=== PATIENT | male | born 1935 | race Caucasian/White ===

== ENCOUNTER 2017-01-05 13:01 | Inpatient (IN) ==
[2017-01-05] MEDS ORDERED: SODIUM CHLORIDE 0.9% 500 ML IV STA (13:53)
[2017-01-05 13:59] LABS: Basophils # 0.2 10*3/uL (0.0-0.2); Basophils % 1.6 % (0.0-0.8); Eosinophils # 0.4 10*3/uL (0.0-0.87); Eosinophils % 3.2 % (0.00-10.9); Hematocrit 44.6 VOL% (42.0-52.0); Hemoglobin 14.5 GM/DL (14.0-18.0); Immature Granulocytes % 0.7 %; Immature Granulocytes Absolute 0.08 #; Lymphocytes # 2.7 10*3/uL (1.4-4.0); Mean Corpuscular HGB Conc 32.5 GM/DL (32-36); Mean Corpuscular Hemoglobin 29 PG (27-34); Mean Corpuscular Volume 89.7 FL (87-102); Mean Platelet Volume 11.1 FL (9.6-12.0); Monocytes # 1.2 10*3/uL (0.11-0.8); Monocytes % 11.3 % (1.7-12.7); Neutrophils # 6.4 10*3/uL (1.4-7.4); Neutrophils % 58.2 % (38.7-73.9); Platelet Count 217 T/CUMM (130-400); Red Blood Count 4.97 MC/CUMM (3.8-5.5); Red Cell Distribution Width 14.6 % (9.3-17.3); White Blood Count 10.9 T/CUMM (4-12)
[2017-01-05 14:11] LABS: Albumin 3.5 G/DL (3.4-5.0); Bilirubin,Total 0.6 MG/DL (0.2-1.0); Calcium 9.1 MG/DL (8.5-10.1); Magnesium 1.5 MG/DL (1.8-2.4); Potassium 4.6 MMOL/L (3.5-5.1); Total Protein 7.1 G/DL (6.4-8.3)
--- NOTE | 2017-01-05 14:15 | XRay Report ---
XR chest 1V portable Indication: Altered mental status. Chest one view: Comparison 03/19/2009. Right hemidiaphragm remains elevated. There is chronic interstitial prominence of the lungs diffusely with continued diffuse peribronchial thickening. Central interstitial scarring is stable as well. No focal infiltrates have developed. Borderline cardiomegaly and tortuous calcification of thoracic aorta are stable as well. Impression: Chronic airways disease such as bronchitis. Continued elevation right hemidiaphragm and persistent borderline cardiomegaly. PROCEDURE INTERPRETED AT [facility] DEPARTMENT OF RADIOLOGY Final Report Signed by: Glenn Pyaan M.D.
--- NOTE | 2017-01-05 14:36 | Emergency Department Note ---
Lonnie Crocker Brittany, am scribing for, and in the presence of, Saul Sifuentes MD 13:53. Maria Crocker Phillip K, MD, personally performed the services described in this documentation, ascribed by Trinity Fleming in my presence, and it is both accurate and complete . Arrival - Arrival Chief Complaint: Altered Mental Status Stated Complaint: was unconscous ED Nursing Triage Note: family states that the pt has been in 2 different for blacking out when your bp drops. pt is having trouble speaking in triage. pt is confused Mode of Arrival: Wheelchair Limitations: No Limitations Source: Patient, RN Notes Reviewed - History of Present Illness HPI Narrative: Patient is a 81 y/o white male presenting to the ED accompanied by family members for further evaluation of confusion and syncopal episodes. Family reports that patient has had four different syncopal episodes. With these episodes patient notably has a drop in blood pressure, confusion, stiffness of the body, unsteady gait, fixed gaze, and is unresponsive to verbal stimuli. Patient does not have any hypoglycemia with these episodes. Family reports that patient was seen and evaluated at [facility] over the weekend after onset of symptoms on . He was admitted and placed on the Telemetry unit. Patient notably had slightly elevated cardiac enzymes, had a CT Head and MRI performed during his stay. Family states that physician there wanted to perform a Cardiac Catheterization, but they declined the performance of this procedure secondary to patient's poor condition and didn't feel that it was the best option at the moment. While there patient was on child monitor and did not display one of these episodes or any changes on the monitor. Patient was seen by his Clicking Machine Operator Dr. Natarajan this morning for further evaluation of these episodes and was instructed to stop taking Norvasc and sent home with a Holter monitor. Family reports that upon their arrival home patient had another episode, prompting their visit. In room patient denies any SOB, chest pain, abdominal pain, N/V. He states that he feels fine as of now. Patient is confused, and oriented only to person. No other complaints. Allergies/Adverse Reactions: Allergies Allergy/AdvReac Type Severity Reaction Status Date / Time No Known Allergies Allergy Unverified 01/05/17 13:06 Review of System - Review of System 12 point system: reviewed and no additional remarkable complaints except as stated - Review of System Constitutional: Present: weakness Cardiovascular: Present: syncope. Absent: chest pain Gastrointestinal: Absent: abdominal pain Neurological: Present: confusion, abnormal gait Medical,Surgical,& Family Hx - Social History Smoking Status: Never smoker Frequency of Alcohol Use: None Type of Drug Use: None Exam Vital Signs: Vital Signs Temperature 96.5 F L 01/05/17 13:03 Pulse Rate 70 01/05/17 13:03 Respiratory Rate 18 01/05/17 14:19 Blood Pressure 94/43 01/05/17 13:03 O2 Sat by Pulse Oximetry 93 L 01/05/17 13:03 - General General appearance: alert, in no apparent distress - Head Head exam: Present: atraumatic, normocephalic, normal inspection - Eye Eye exam: Present: normal appearance, PERRL, EOMI - ENT ENT exam: Present: mucous membranes dry. Absent: mucous membranes moist - Neck Neck exam: Present: normal inspection, full ROM, trachea midline - Chest Chest inspection: Present: normal inspection, symmetric chest wall rise - Respiratory Respiratory exam: Present: rales (rales noted to the right base). Absent: normal lung sounds bilaterally - Cardiovascular Cardiovascular exam: Present: regular rate, normal rhythm, normal heart sounds - Abdominal Exam Abdominal exam: Present: soft, normal bowel sounds. Absent: tenderness - Extremities Exam Extremities exam: Present: normal inspection - Back Exam Back exam: Present: normal inspection - Neurological Exam Neurological exam: Present: alert, CN II-XII intact. Absent: oriented X3 ( oriented to person only), motor sensory deficit - Psychiatric Psychiatric exam: Present: normal affect, normal mood - Skin Skin exam: Present: warm, dry Results - Labs CBC & BMP: 01/05/17 13:37 01/05/17 13:37 Lab Results: I have reviewed the patients labs Labs: Laboratory Tests 01/05/17 01/05/17 13:37 13:37 WBC 10.9 RBC 4.97 Hgb 14.5 Hct 44.6 Plt Count 217 Baso % (Auto) 1.6 H Haines # (Auto) 1.2 H Sodium 136 Potassium 4.6 Chloride 101 Carbon Dioxide 27 BUN 25 H Creatinine 2.00 H Glucose 147 H Magnesium 1.5 L Globulin 3.6 H Albumin/Globulin Ratio 0.9 L Laboratory Tests 01/05/17 13:37 Sodium 136 Potassium 4.6 Chloride 101 Carbon Dioxide 27 BUN 25 H Creatinine 2.00 H Glucose 147 H Magnesium 1.5 L Globulin 3.6 H Albumin/Globulin Ratio 0.9 L - EKG EKG results: interpreted by DAMION, WNL, sinus rhythm - Diagnostic Findings Procedure: Chest x-ray: report reviewed by me (Bronchitis and borderline cardiomegaly) Disposition Clinical Impression: Hypotension, Rule out arrhythmia, Altered mental status, Near syncope, Probable orthostatic hypotension Case discussed with: patient, patient's family Disposition: Still a Patient Condition: Guarded Additional Instructions: Admit to the hospitalist.
[2017-01-05 14:49] LABS: Apearance,Urine Slightly Hazy (Clear); Bacteria,Urine Few /HPF (Few); Bilirubin,Urine Negative (Negative); Blood, Urine Negative (Negative); Glucose,Urine (UA) Negative (Negative); Ketones,Urine Negative (Negative); Mucus,Urine Occasional /LPF (Occasional); Nitrite,Urine Negative (Negative); Protein,Urine 30 MG/DL; RBC,Urine 3 /HPF (0-4); Squamous Epithelial Cell,Urine Occasional /HPF (0-10); Urine Color Yellow (Yellow); Urine Specific Gravity 1.012 (1.001-1.035); Urine Urobilinogen < 2.0 EU/DL (0.2-1.0); WBC,Urine 17 /HPF (0-6)
--- NOTE | 2017-01-05 15:21 | EKG Report ---
Stationary ECG Study [facility] ER Test Date: 01/05/2017 1:18:09 PM Pat Name: RAMYA WALLACE Department: Room: Gender: M Airline Security Representative: : 1935 Requested by: Saul Urena Order Number: [id number] Reading MD: SADI STOKES Intervals Louise Rate: 65 P: 56 GA: 177 QRS: 54 QRSD: 83 T: 39 QT: 441 QTc: 452 Interpretive Statements SINUS RHYTHM Electronically Signed On 01-05-17 15:52:05 CDT by SADI STOKES [email or web address]
--- NOTE | 2017-01-05 15:46 | Hospitalist History & Physical ---
<Fartun Jonas - Last Filed: 01/05/17 16:18> Assessment and Plan (1) Altered mental status Status: Acute Assessment and plan: Admit for observation. Cardiac monitoring. Cardiology consult. Obtain cbc/bmp in am. UA revealed uti. Blood cultures pending. CXR negative. Obtaining recent MRI/CT results from outside facility. Current Visit: Yes (2) Hypotension Status: Resolved Assessment and plan: Pt received bolus in ED. Hypotension has resolved. Will hold antihypertensive agents for now. Current Visit: Yes (3) Near syncope Status: Acute Assessment and plan: Consult cardiology to evaluate. Cardiac monitoring. Routine vitals. Current Visit: Yes (4) Diabetes Status: Acute Assessment and plan: Accuchecks achs. SSI. hbg A1c in am. Current Visit: Yes (5) Urinary tract infection Status: Acute Assessment and plan: Pt. will be started on IVF. IV antibiotics. Current Visit: Yes (6) History of CVA (cerebrovascular accident) Status: Chronic Current Visit: Yes History of Present Illness Chief complaint: syncopal episode History of present illness: Mr. Badillo is a 81 year old white male with a history of hypertension, CVA, diabetes, and carotid endarectomy the presents to the ED today for further evaluation of confusion and syncopal episode. Patient is accompanied by family member. Pt. is lethargic and oriented only to self. Granddaughter provides history for the patient. She states that this decline in patient's health has been ongoing for 1 week and 1 day. She states that the patient had a syncopal episode one night at home where he became unsteady, went stiff, and had a fixed gaze. She reports that they did not have the patient evaluated at the time but when the symtpoms persisted, they called an ambulance and patient was taken to [facility]. Pt. was admitted and placed on the telemetry unit there. He had elevated enzymes, Head CT and MRI. According to granddaughter, pt was told that he needed to have a heart cath but family refused due to patient's status. He was discharged from [place] on Wednesday. He did fair over the weekend but began to exhibit some of the same symptoms on Wednesday evening. Pt. was taken to Dr. Natarajan today for evaluation and was given a Holter monitor. Pt. was on the way home, device not yet activated, when a similiar episode occurred. Pt. was brought in for further evaluation. Pt. is altered. At the time of arrival, he was also hypotensive but received fluids in the ED. We will admit the patient for observation and treatment. Records will be obtained from [place]. Home Medications Medication Instructions Recorded Confirmed Type Gabapentin [Gabapentin] 300 mg PO BID 01/05/17 01/05/17 History Allergies Allergy/AdvReac Type Severity Reaction Status Date / Time No Known Allergies Allergy Unverified 01/05/17 13:06 Medical,Surgical,& Family Hx - Social History Smoking Status: Never smoker Frequency of Alcohol Use: None Type of Drug Use: None ROS unobtainable: due to mental status Exam - Constitutional Vitals: Period Temp Pulse Resp BP Sys/Zurita Pulse Ox Last 24 Hr 96.5 F 70 18-18 94/43 93 General appearance: no acute distress, over weight - Head Head exam: Present: normal inspection, normocephalic - Eye Eye exam: Present: EOMI Pupils: Present: INDU - Respiratory Respiratory exam: Present: other (coarse) - Cardiovascular Cardiovascular exam: Present: regular rate and rhythm - GI/Abdominal GI/Abdominal exam: Present: normal bowel sounds, soft. Absent: tenderness - Extremities Exam Extremities exam: Present: normal capillary refill, full ROM, edema - Neurological Exam Neurological exam: Present: altered. Absent: alert, oriented X3 - Psychiatric Psychiatric exam: Absent: normal affect - Skin Skin exam: Present: normal color, warm, dry Results - Labs CBC & BMP: 01/05/17 13:37 01/05/17 13:37 Lab Results: I have reviewed the past 24 hour labs <Dottie Badillo - Last Filed: 01/05/17 17:07> Assessment and Plan (1) Syncope and collapse Status: Acute Assessment and plan: Hypotension over at cardiology, Dr. Natarajan wants to hold his blood pressure meds including his lasix and flomax, maribel hose once right leg wound is covered. Event monitor on discharge. Neurology to see. NS at 75 ml/hr last ef 55% on echo. No further troponins or EKGs needed per dr Natarajan. Current Visit: Yes (2) Orthostatic hypotension Status: Acute Assessment and plan: hold blood pressure meds, and hydrate with normal saline Current Visit: Yes (3) Aortic stenosis, moderate Status: Acute Assessment and plan: per Dr Natarajan Current Visit: Yes (4) QUINCY (obstructive sleep apnea) Status: Acute Assessment and plan: Had sleep study many years ago and refused to wear cpap, daughter will ensure compliance. Dr Montiel to see him Current Visit: Yes (5) Altered mental status Status: Acute Assessment and plan: need records from [place], treat uti, stat abg Current Visit: Yes (6) Diabetes Status: Acute Current Visit: Yes (7) History of CVA (cerebrovascular accident) Status: Chronic Assessment and plan: continue home meds once available, Dr Lewis to review Current Visit: Yes (8) Urinary tract infection Status: Acute Assessment and plan: rocephin, await cultures. Current Visit: Yes History of Present Illness History of present illness: Mr. Badillo is a 81 year old male seen and examined. Spoke with Dr. Natarajan, he does not need a heart cath but he instructed the family to get some maribel hose, and stop his norvasc, lisinopril and flomax. He home medications have not been placed in computer. Dr. Natarajan reports he has moderate aortic stenosis and has had a recent echo. He will fax his note from today with his list of meds to the floor. Dr. Natarajan asked the family to stop his blood pressure meds and gets some maribel hose. Patient does have a right LE wound on his velez which does not look infected. Patient was at [facility] overnight and the family took him to Dr De La O office on discharge. Patient passed out again while in the car. We needs records from [place], Dr Natarajan place him on an event monitor but feels he does not need a heart cath. Medical,Surgical,& Family Hx - Medical History Cardio: History of: Hypertension, Valvular Heart Disease (aortic stenosis) Endocrine: History of: Diabetes Mellitus (NIDDM) - Surgical History Cardiac Surgeries: Sugical HX of: Carotid Endarterectomy HEENT Surgeries: Surgical HX of: Carotid Endarterectomy Additional Surgical History: femoral stent - Family History Family History: Reports;: Family Diabetes, Family Hypertension Denies;: Family Heart Disease - Social History Smoking Status: Former smoker Marital Status: Lives With:: Spouse Functional capacity: wheelchair bound Review of systems: provided by [facility] - Constitutional Constitutional: Present: fatigue, frequent falls, weakness. Absent: fever(s) - EENT Eyes: Present: requires corrective lense. Absent: blurry vision Ears: Present: decreased hearing Nose, mouth and throat: Absent: headache(s) - Cardiovascular Cardiovascular: Present: dyspnea, dyspnea on exertion, edema (occasional). Absent: chest pain at rest - Respiratory Respiratory: Present: dyspnea, dyspnea on exertion - Gastrointestinal Gastrointestinal: Absent: abdominal pain, constipation, nausea, vomiting - Genitourinary Genitourinary: Present: difficulty urinating, dysuria. Absent: hematuria - Musculoskeletal Musculoskeletal: Present: back pain - Neurological Neurological: Present: confusion, dizziness, frequent falls, syncope - Psychiatric Psychiatric: Present: depression, memory loss - Hematologic/Lymphatic Hematologic/Lymphatic: Present: easy bruising Exam - Constitutional Vitals: Period Temp Pulse Resp BP Sys/Zurita Pulse Ox Last 24 Hr 96.5 F 61-70 18-18 77-173/27-61 93 - Eye Eye exam: Absent: scleral icterus Pupils: Present: normal accommodation - ENT ENT exam: Present: normal exam, normal external ear exam - Neck Neck exam: Absent: lymphadenopathy, thyromegaly - Respiratory Respiratory exam: Present: decreased breath sounds - Cardiovascular Cardiovascular exam: Present: bradycardia. Absent: systolic murmur - Neurological Exam Neurological exam: Present: motor sensory deficit (generalized weakness ) - Psychiatric Psychiatric exam: Present: depressed, flat affect Results - Labs CBC & BMP: 01/05/17 13:37 01/05/17 13:37 - EKG EKG shows: sinus rhythm - Diagnostic Findings Procedure: Chest x-ray: report reviewed by me (chronic bronchitis )
[2017-01-05] MEDS ORDERED: DEXTROSE 50% 25 GM/50 ML SYRINGE IV PRN (16:39)
[2017-01-05] MEDS ORDERED: ONDANSETRON 4 MG/2 ML VIAL IV PRN (16:39)
[2017-01-05] MEDS ORDERED: GLUCAGON 1 MG VIAL IM PRN (16:39)
[2017-01-05] MEDS: INSULIN LISPRO 100 UNIT/ML SUBCUT SCH ×2 (17:37→21:00)
[2017-01-05 17:38] LABS: ABG Base Excess -1.7 MMOL/L (-2.5-2.5); ABG HCO3 23.3 MMOL/L (20-26); ABG Oxygen Saturation 97.6 % (95-100); ABG PCO2 40.6 MM HG (35-48); ABG PH 7.377 (7.35-7.45); ABG PO2 98.1 MM HG (80-95); ABG TCO2 24.6 MMOL/L (23-27)
[2017-01-05] MEDS ORDERED: ATORVASTATIN 20 MG TABLET PO PRN (18:08)
[2017-01-05] MEDS ORDERED: MAGNESIUM SULF RIDER 2 GM in PREMIX 1 EACH IV ONE (18:12)
[2017-01-05 18:36] LABS: Troponin I Only 0.075 NG/ML (0.00-0.045)
[2017-01-05] MEDS: SODIUM CHLORIDE 0.9% 1,000 ML IV SCH (19:29)
[2017-01-05] MEDS: cefTRIAXone 1,000 MG in SODIUM CHLORIDE 0.9% 100 ML IV SCH (19:29)
[2017-01-05] MEDS: GABAPENTIN 300 MG CAPSULE PO SCH (20:37)
[2017-01-05 23:53] LABS: CKMB % 5.2 %
[2017-01-05 23:57] LABS: Troponin I Only 0.061 NG/ML (0.00-0.045)
[2017-01-06 05:30] LABS: Basophils % 1.7 % (0.0-0.8); Hematocrit 42.1 VOL% (42.0-52.0); Hemoglobin 13.8 GM/DL (14.0-18.0); Immature Granulocytes % 0.3 %; Lymphocytes % 27.4 % (21.2-54.2); Mean Corpuscular HGB Conc 32.8 GM/DL (32-36); Mean Corpuscular Hemoglobin 29 PG (27-34); Mean Corpuscular Volume 89.6 FL (87-102); Mean Platelet Volume 10.9 FL (9.6-12.0); Monocytes % 11.9 % (1.7-12.7); Neutrophils % 53.7 % (38.7-73.9); Platelet Count 189 T/CUMM (130-400); Red Cell Distribution Width 14.5 % (9.3-17.3); White Blood Count 9.3 T/CUMM (4-12)
[2017-01-06 05:31] LABS: Basophils # 0.2 10*3/uL (0.0-0.2); Eosinophils # 0.5 10*3/uL (0.0-0.87); Immature Granulocytes Absolute 0.03 #; Lymphocytes # 2.5 10*3/uL (1.4-4.0); Monocytes # 1.1 10*3/uL (0.11-0.8)
[2017-01-06 06:28] LABS: Calcium 9.1 MG/DL (8.5-10.1); Magnesium 2.1 MG/DL (1.8-2.4); Osmolality,Calculated 278.7 MOS/KG (273-304); Potassium 4.7 MMOL/L (3.5-5.1); Risk Ratio 3.77; Thyroid Stimulating Hormone 1.92 uIU/ml (0.358-3.74); VLDL CHOLESTEROL 26.8 MG/DL
[2017-01-06] MEDS: LEVOTHYROXINE 75 MCG TABLET PO SCH (09:23)
[2017-01-06] MEDS: PANTOPRAZOLE 40 MG TABLET PO SCH (09:23)
[2017-01-06] MEDS: CITALOPRAM 20 MG TABLET PO SCH (09:23)
[2017-01-06] MEDS: ASPIRIN EC 81 MG TABLET PO SCH (09:24)
[2017-01-06] MEDS: INSULIN LISPRO 100 UNIT/ML SUBCUT SCH ×6 (09:26→21:00)
[2017-01-06] MEDS: POLYETHYLENE GLYCOL POWDER 17 GM PACK PO SCH (10:49)
[2017-01-06] MEDS: amLODIPine 5 MG TABLET PO SCH (12:34)
[2017-01-06] MEDS: LISINOPRIL 5 MG TABLET PO SCH (12:35)
--- NOTE | 2017-01-06 16:33 | Hospitalist Progress Note ---
Assessment and Plan (1) Acute kidney injury Status: Acute Assessment and plan: Creatinine on admission was 2.0. This is improved to 1.3 with IV fluids at 75 cc/h. Continue IV fluids. Monitor renal function. Continue treatment of urinary tract infection. Current Visit: Yes (2) Dehydration Status: Acute Current Visit: Yes (3) Altered mental status Status: Acute Assessment and plan: His mental status has returned to normal. Will consult neurology and obtain records from [place]. Cardiology following for evaluation of cardiogenic causes of syncope. Current Visit: Yes (4) History of CVA (cerebrovascular accident) Status: Chronic Current Visit: Yes (5) Syncope and collapse Status: Acute Current Visit: Yes (6) Aortic stenosis, moderate Status: Chronic Current Visit: Yes (7) Urinary tract infection Status: Acute Assessment and plan: Continue Rocephin. Follow-up cultures Current Visit: Yes Qualifiers: Urinary tract infection type: acute cystitis Hematuria presence: without hematuria Qualified Code(s): N30.00 - Acute cystitis without hematuria Hospitalist: Subjective Interval history: Patient seen and examined. No acute events overnight. Case discussed with nursing staff. Labs reviewed. I had a lengthy discussion with the patient's at the bedside. She reports frequent syncopal episodes at home. These are described as blank stares without shaking or loss of bowel or bladder function. She reports his eyes are open. He was admitted to [facility] last week and underwent evaluation by neurology and cardiology. They went to see Dr. Desai for second opinion. On the way home to the [facility] the patient suffered another syncopal episode prompting them to bring him back to the emergency department. She reports it took a while for him to wake up from this episode. He has large fluctuations in blood pressure and appeared to be acutely dehydrated with acute kidney injury which is now resolved with IV fluids. Exam - Constitutional Vitals: Period Temp Pulse Resp BP Sys/Zurita Pulse Ox Last 24 Hr 97 F-98.6 F 61-63 18-22 120-203/60-79 92-95 Exam: Constitutional System: No distress. No tremulousness. Head: Normocephalic, atraumatic. Ears, Nose and Throat System: No pain or tenderness. No epistaxis or discharge Eyes System: Pupils equal, round, and reactive. Extraocular muscles intact. Neck: Supple, without adenopathy, No jugular venous distention. No thyromegaly, neck mass, or prior surgery apparent. Respiratory System: Chest clear to auscultation. Cardiovascular System: Heart with regular rate and rhythm. Systolic murmur noted. GI System: Abdomen soft, nontender. Normo active bowel sounds present. Musculoskeletal System: limbs with no pedal edema. Full distal pulses. Neurological System: No discernable sensory deficit. No aphasia Psychiatric System: Conversation is rational Results - Labs CBC & BMP: 01/06/17 05:00 01/06/17 05:00 Lab Results: I have reviewed the past 24 hour labs - Diagnostic Findings Procedure: Chest x-ray: report reviewed by me, image reviewed by me
--- NOTE | 2017-01-06 17:15 | Neurology Consult Note ---
History of Present Illness History of present illness: 81 years old right-handed white gentleman who is quite debilitated at the baseline admitted the hospital with frequent episodes of decreasing level of consciousness. Symptoms started almost 10 days ago. He almost had 3 or 4 episodes. On almost all of the episodes he was either sitting up or up and about when this happened. Yesterday the episode was the longest one. Typical episodes characterized by developing decreased level of consciousness, mumbling disoriented and not to himself. Typically it was last for 5-10 minutes but yesterday it lasted for several hours. He went to the [facility] and had a detailed evaluation including MRI of the brain and EEG and although neurological workup was nonconclusive as per patient's family. Cardiac workup so far is negative as well. His episodes are not associated with tongue biting or urinary incontinence. None of the symptoms/episodes has been witnessed by any physician. This time patient was brought into [facility] for further evaluations. Family looking forward to get some answers. At [facility] they were told that this is probably orthostatic hypotension. Patient had a history of a stroke some 10 years ago. Her last 4-5 months he has gotten very debilitated and does not do much at home including walking. Home Medications Medication Instructions Recorded Confirmed Type Anastrozole [Anastrozole] 1 mg PO DIRECTED 01/05/17 01/05/17 History Aspirin [Ecotrin] 81 mg PO DAILY 01/05/17 01/05/17 History Atorvastatin [Lipitor] 20 mg PO DAILY PRN 01/05/17 01/05/17 History Carvedilol [Carvedilol] 3.25 mg PO BID 01/05/17 01/05/17 History Citalopram [CeleXA] 10 mg PO DAILY 01/05/17 01/05/17 History Furosemide [Furosemide] 20 mg PO DAILY 01/05/17 01/05/17 History Gabapentin 600 mg PO BEDTIME 01/05/17 01/05/17 History Gabapentin [Gabapentin] 300 mg PO BID 01/05/17 01/05/17 History Insulin Aspart [NovoLOG FlexPen] 12 units SUBCUT AC SUPPER 01/05/17 01/05/17 History Insulin Aspart [NovoLOG FlexPen] 14 units SUBCUT AC BREAKFAST 01/05/17 01/05/17 History Insulin Degludec [Tresiba 60 units SUBCUT AC BREAKFAST 01/05/17 01/05/17 History Flextouch U-200] Levothyroxine Sodium 75 mcg PO DAILY 01/05/17 01/05/17 History Lisinopril [Lisinopril] 5 mg PO DAILY 01/05/17 01/05/17 History Meclizine [Antivert] 25 mg PO TID 01/05/17 01/05/17 History Nitroglycerin [Nitroglycerin SL 0.4 mg SL DIRECTED 01/05/17 01/05/17 History Tab] Tamsulosin [Flomax] 0.4 mg PO DAILY 01/05/17 01/05/17 History amLODIPine [Norvasc] 5 mg PO DAILY 01/05/17 01/05/17 History Allergies Allergy/AdvReac Type Severity Reaction Status Date / Time No Known Allergies Allergy Unverified 01/05/17 13:06 12 point system: reviewed and no additional remarkable complaints except as stated Medical,Surgical,& Family Hx - Medical History Cardio: History of: Hypertension, Valvular Heart Disease (aortic stenosis) Neurology: History of: Cerebrovascular Accident Endocrine: History of: Diabetes Mellitus (IDDM), Diabetes Mellitus (NIDDM) - Surgical History Cardiac Surgeries: Sugical HX of: Carotid Endarterectomy Neurologic Surgeries: Patient denies: Neurologic Surgery HEENT Surgeries: Surgical HX of: Carotid Endarterectomy - Family History Family History: Reports;: Family Diabetes, Family Hypertension Denies;: Family Heart Disease - Social History Smoking Status: Former smoker Frequency of Alcohol Use: None Type of Drug Use: None Exam - Constitutional Vitals: Period Temp Pulse Resp BP Sys/Zurita Pulse Ox Last 24 Hr 97 F-98.6 F 61-63 18-22 120-203/60-79 92-95 Exam: GENERAL: Patient is in no acute distress. NECK: Neck is supple. There is no JVD. No carotid bruits present. No thyroid masses. CVS: First and second heart sounds are normal. There is no S3 present. Regular rate and rhythm. RESPIRATORY: Lungs are clear to auscultation without any rales or rhonchi. ABDOMEN: Soft and non-tender. Bowel sounds are present. There is no hepatosplenomegaly. EXT: There is no palpable edema. Peripheral pulses are present. Skin: No rashes Central Nervous system: General: Alert, awake and Oriented Speech: Fluent Comprehension: Intact and normal Facial expressions: Normal Cranial Nerves: CN1/Olfactory: Normal CN II/ Optic: Normal, Visual Ocampo unreliable CN III, and : INDU & EOMI CN V: Normal & intact CN VII: face is symmetric CNVIII: Normal CN XI/X/XI/XII: Intact and Normal Motor: Bulk and Tone is normal. Strength in the right 3-4/5 Strength in the left 3-4/5 Sensory: Unreliable Reflexes: 1+ and symmetrical Cerebellar function: Normal finger to nose and heel to velez testing. Toes: Equivocal Gait: Was able to get up with max assist and able to take a few steps to the chair with mod assist Results - Labs CBC & BMP: 01/06/17 05:00 01/06/17 05:00 Assessment and Plan (1) Syncope and collapse Status: Acute Assessment and plan: Etiology is not clear. None of the episodes has been witnessed by any physicians. Differential diagnosis would include orthostatic hypotension, cardiac arrhythmias or seizures. Plan is to do another EEG He probably will need ambulatory 72 hours video EEG monitoring at home for the clarification of these episodes. It would not hurt to try him on empiric 1 of the antiseizure medications to see if it helps with the episodes however family is reluctant to do so at this point due to medication side effects Thank you for the consult will follow him along with Current Visit: Yes
--- NOTE | 2017-01-06 18:06 | Sleep Medicine Consult ---
Assessment and Plan (1) QUINCY (obstructive sleep apnea) Status: Chronic Assessment and plan: Patient with history of QUINCY and remains symptomatic. Will reevaluate with HST tonight and follow up results. Thanks for consult. Current Visit: Yes (2) Diabetes Status: Chronic Assessment and plan: The prevalence rate for obstructive sleep apnea in patients with type 2 diabetes can be as high as 86%. Those patients with moderate to severe obstructive sleep apnea are at a greater risk for diabetic nephropathy and neuropathy. Compliance with CPAP therapy for these patients can lead to improvement in glycemic control and improvement in insulin sensitivity. Current Visit: Yes History of Present Illness Chief complaint: Sleep apnea History of present illness: Mr. Badillo is a 81 year old male admitted with recurrent syncope. He has had a decline in his health over the last week related to recurrent episodes of passing out. He has a remote history of obstructive sleep apnea diagnosed over 10 years ago but never followed up for treatment. Family member state that he refused treatment. He continues to snore loudly and stop breathing during his sleep. He basically sleeps all the time according to family. He is profoundly somnolent throughout the day. He had a stop bang score of 7 and an [place] sleepiness score of 17. Home Medications Medication Instructions Recorded Confirmed Type Anastrozole [Anastrozole] 1 mg PO DIRECTED 01/05/17 01/05/17 History Aspirin [Ecotrin] 81 mg PO DAILY 01/05/17 01/05/17 History Atorvastatin [Lipitor] 20 mg PO DAILY PRN 01/05/17 01/05/17 History Carvedilol [Carvedilol] 3.25 mg PO BID 01/05/17 01/05/17 History Citalopram [CeleXA] 10 mg PO DAILY 01/05/17 01/05/17 History Furosemide [Furosemide] 20 mg PO DAILY 01/05/17 01/05/17 History Gabapentin 600 mg PO BEDTIME 01/05/17 01/05/17 History Gabapentin [Gabapentin] 300 mg PO BID 01/05/17 01/05/17 History Insulin Aspart [NovoLOG FlexPen] 12 units SUBCUT AC SUPPER 01/05/17 01/05/17 History Insulin Aspart [NovoLOG FlexPen] 14 units SUBCUT AC BREAKFAST 01/05/17 01/05/17 History Insulin Degludec [Tresiba 60 units SUBCUT AC BREAKFAST 01/05/17 01/05/17 History Flextouch U-200] Levothyroxine Sodium 75 mcg PO DAILY 01/05/17 01/05/17 History Lisinopril [Lisinopril] 5 mg PO DAILY 01/05/17 01/05/17 History Meclizine [Antivert] 25 mg PO TID 01/05/17 01/05/17 History Nitroglycerin [Nitroglycerin SL 0.4 mg SL DIRECTED 01/05/17 01/05/17 History Tab] Tamsulosin [Flomax] 0.4 mg PO DAILY 01/05/17 01/05/17 History amLODIPine [Norvasc] 5 mg PO DAILY 01/05/17 01/05/17 History Allergies Allergy/AdvReac Type Severity Reaction Status Date / Time No Known Allergies Allergy Unverified 01/05/17 13:06 Review of systems: Other than for his severe sleepiness, no other significant abnormal sleep behaviors noted. Exam ([place]) H&P - Constitutional Vitals: Period Temp Pulse Resp BP Sys/Zurita Pulse Ox Last 24 Hr 97 F-98.6 F 61-74 18-22 120-203/60-79 91-95 Exam: He is alert and responsive. He did follow simple commands and cooperated with the exam. Pupils equal round reactive to light and accommodation. Extraocular movements intact. Oropharynx with a class IV Mallampati exam. Neck supple without adenopathy or thyromegaly. No supraclavicular adenopathy is noted. Chest with symmetrical breath sounds without focal wheeze, rhonchi, or rales. Cardiac exam reveals a regular rhythm without murmur or gallop. Abdomen soft nontender without palpable hepatosplenomegaly or mass. Extremities are without clubbing, cyanosis, or edema. Neurologically, he is grossly intact. He moves all extremities. Medical,Surgical,& Family Hx - Medical History Cardio: History of: Hypertension, Valvular Heart Disease (aortic stenosis) Neurology: History of: Cerebrovascular Accident Endocrine: History of: Diabetes Mellitus (IDDM), Diabetes Mellitus (NIDDM) - Surgical History Cardiac Surgeries: Sugical HX of: Carotid Endarterectomy Neurologic Surgeries: Patient denies: Neurologic Surgery HEENT Surgeries: Surgical HX of: Carotid Endarterectomy - Family History Family History: Reports;: Family Diabetes, Family Hypertension Denies;: Family Heart Disease - Social History Smoking Status: Former smoker Frequency of Alcohol Use: None Type of Drug Use: None Results - Labs CBC & BMP: 01/06/17 05:00 01/06/17 05:00 Lab Results: I have reviewed the past 24 hour labs
[2017-01-06] MEDS: cefTRIAXone 1,000 MG in SODIUM CHLORIDE 0.9% 100 ML IV SCH (19:00)
[2017-01-06] MEDS: ACETAMINOPHEN 325 MG TABLET PO PRN (19:45)
--- NOTE | 2017-01-06 20:39 | Cardiology Consult Note ---
Alvin Crocker Vanessa, RN, am scribing for, and in the presence of, Froilan Anthony MD 20:38. Assessment and Plan - Time spent with patient Time spent with patient: Greater than 30 minutes (Due to assessment, planning, documentation, medication review) (1) Near syncope Status: Acute Assessment and plan: 81-year-old WM with past medical history of hypertension, diabetes, dyslipidemia , CAD with previous stenting, untreated QUINCY, CVA, and possible history of PAF. He also had moderate , preserved LV function, and has been experiencing near syncopal episode with orthostatic symptoms a little over 1 week now. Essentially, he is nonambulatory and spends majority of time lying in bed. December ASSESSMENT/PLAN: 1. NEAR SYNCOPE- No further near syncope since admission. Cardiac monitoring and has been nonrevealing. Recent CT/MRI head at [facility] - records are being obtained. Place event monitor (family to bring from home) prior to discharge. 2. ORTHOSTASIS- Could certainly contribute to patient's symptoms. Medications adjusted and discontinued during office visit with Dr. Celestin yesterday. Monitor orthostatic VS. Adjust medications accordingly. 3. HYPERTENSION- Chronic; Monitor BP and adjust med regimen as indicated. He was actually hypotensive upon presentation to the ER and required IVF bolus. 4. HYPOTHYROID- TSH 1.920 this admit. Thyroid supplement continued. 5. AORTIC STENOSIS- Known history of and remains moderate per recent echo. Could possibly be contributing to orthostatic symptoms and near syncope. 6. HISTORY OF CAD- Appears stable at this time. previous stenting of RCA in 2006. He currently takes low dose ASA. 7. PAF- Review of old records indicate possibly history of PAF but unclear. Family denies any knowledge of atrial fibrillation. He is not formally anticoagulated for stroke prevention. 8. QUINCY- Untreated. Diagnosed years ago, but was intolerant of CPAP. Family request patient to be reevaluated and treated. Sleep disorder could contribute to patient's symptoms. Sleep medicine has been consulted to review. 9. DYSLIPDIEMIA- FLP this morning overall unremarkable. Noted to have statin intolerance in the past, but home med list indicates he is prescribed atorvastatin. 10. DIABETES- Continue current plan of care. Defer primary management to attending. No significant hypo/hyperglycemia associated with episodes of syncope. 11. UTI- Started on IV antibiotic by hospital medicine. Urine culture pending. 12. PVD- Appears stable at this time. He has had previous stenting of BLEs in the past in [place], [place]. Continue BLE TEDs. His spells of loss of consciousness sound more like a seizure and syncope. However it could be bradycardia, tachycardia, orthostatic hypotension, vasovagal , psychogenic, conversion reaction, or some other cause Plan/recommendation: He has had an echo done within the last 6 months which was okay Carotid ultrasounds done in 09/[address] of the head negative Agree with repeat EEG Agree with HST-likely has sleep apnea Check orthostatic blood pressures Monitor if he has a spell-glucose, blood pressure, rhythm, pulse If he has no more spells could let him go home and reuse a 30 day event monitor which she has to try to document rhythm during symptoms We have held multiple medications which could cause orthostatic hypotension, allowing his blood pressure to run higher baseline I will follow along with you. Thank you for allowing me to participate in this patient's care Current Visit: Yes (2) Altered mental status Status: Acute Assessment and plan: SEE PLAN OF CARE LISTED ABOVE. Current Visit: Yes (3) Urinary tract infection Status: Acute Assessment and plan: SEE PLAN OF CARE LISTED ABOVE. Current Visit: Yes Qualifiers: Urinary tract infection type: acute cystitis Hematuria presence: without hematuria Qualified Code(s): N30.00 - Acute cystitis without hematuria (4) Aortic stenosis, moderate Status: Chronic Assessment and plan: SEE PLAN OF CARE LISTED ABOVE. Current Visit: Yes (5) Diabetes Status: Chronic Assessment and plan: SEE PLAN OF CARE LISTED ABOVE. Current Visit: Yes (6) QUINCY (obstructive sleep apnea) Status: Chronic Assessment and plan: SEE PLAN OF CARE LISTED ABOVE. Current Visit: Yes (7) History of CVA (cerebrovascular accident) Status: Chronic Assessment and plan: SEE PLAN OF CARE LISTED ABOVE. Current Visit: Yes (8) Hypothyroidism Status: Chronic Assessment and plan: SEE PLAN OF CARE LISTED ABOVE. Current Visit: Yes History of Present Illness - Data of Consult Patient: known to practice within the last 3 years Consult date: 01/06/17 Requesting Physician: Dottie Badillo - Consult Narrative Reason for consult: syncope, orthostasis History of present illness: LEAD PERFORMANCE SUPPORT ANALYST: DR. CELESTIN Mr. Badillo is a 81 year old white male with risk factors significant for: hypertension, diabetes, dyslipidemia, sedentary lifestyle, obesity, previous history of CAD, and he is a former smoker. Past medical history includes QUINCY ( untreated), CVA, chronic renal insufficiency, PVD, and hypothyroidism. He also has a reported history of paroxysmal atrial fibrillation. Status post PTCA and stent 2 of the mid RCA per Dr. Lassiter in January 2007. He has had previous bilateral stenting of lower extremities in [place]. Surgical history also significant for bilateral CEAs. Patient also has a history of moderate aortic stenosis, and recent echo ([facility], Dr. Clarke) on December 31 with normal LV systolic function, EF 55-60%. Mr. Badillo has had multiple episodes of syncope in the past week or so, and he has been hospitalized for observation twice, once at [facility] and once at [facility]. Syncopal episodes are described as patient becoming lethargic, confused and mumbling, stiffened body posture, and fixed gaze. Family denies patient having loss of consciousness. Cardiac biomarkers and EKG were benign for acute finding. While admitted at [facility], it was suggested to patient and his family by Dr. Clarke that patient undergo cardiac catheterization for evaluation. Mr. Badillo is essentially nonambulatory and spends the majority of his day in bed, lying supine. Due to patient's medical history and frail state, cardiac cath was declined by the family at that time. He has been found to have significant orthostasis recently, and family reports that home health nurses have told them his systolic BP has been as low as the 60s. After discharge from [facility] , patient's family sought further evaluation and patient seen by Dr. Celestin in clinic yesterday. After evaluation, patient's amlodipine, carvedilol, and Lasix was held. Lisinopril dosage increased to 10 mg PO daily. Patient is also prescribed meclizine and Flomax, and could also most certainly be contributing to orthostasis. Recommended he wear knee high TEDs, monitor BP, sports drink daily, and he was sent home with a 30 day event monitor to observe for potential arrhythmia as source of symptoms. He is now admitted to [facility] after presenting to the ER for recurrent syncope yesterday afternoon. He was hypotensive in ER, BP 77/27. Improved with 500 ml IVF bolus. Creatinine also elevated at 2.0. Diagnostic workup notable for moderate UTI and treatment has been started. Cardiology consulted for further evaluation and review. Neurology consult pending also. Mr. Badillo is awake and pleasant this morning. No acute distress. No chest pain, shortness of breath. Serial cardiac biomarkers benign with CTNI peaking at 0.075 and normal CPK. EKG and cardiac monitoring demonstrate sinus rhythm, HR 60s, no ectopy or dysrhythmia. Family member present at bedside with patient this morning reports that after they left appointment with Dr. Celestin yesterday , patient was feeling well and wanted to go to [employer] for lunch. After lunch, they proceeded to head home toward [place]. While traveling home, patient was noted to be reaching for the gearshift and began to mumble about "putting money in offering plate." He then became lethargic with a fixed gaze. Family reports they had not yet activated event monitor, and continued homeward. After mental status remained altered for approximately 15-20 minutes, family became concerned at the length of episode. Event monitor was taken inside the house, and patient was immediately brought to [facility] ED. Patient has not had further episode since admission according to family member's report. Glucose levels stable. Family reports they have checked patient's blood glucose several times with previous episodes, and glucose has "never been too high or low." He is hypertensive at times this morning with SBP up to 170. Being cautiously hydrated with IVF infusion, creatinine improved to 1.3 this morning. Family member is going to try and have patient's granddaughter bring event monitor from home to hospital so this can be placed and activated prior to discharge home. CC: Umm Varghese MD - Home Medications and Allergies Home Medications: Home Medications Medication Instructions Recorded Confirmed Type Anastrozole [Anastrozole] 1 mg PO DIRECTED 01/05/17 01/05/17 History Aspirin [Ecotrin] 81 mg PO DAILY 01/05/17 01/05/17 History Atorvastatin [Lipitor] 20 mg PO DAILY PRN 01/05/17 01/05/17 History Carvedilol [Carvedilol] 3.25 mg PO BID 01/05/17 01/05/17 History Citalopram [CeleXA] 10 mg PO DAILY 01/05/17 01/05/17 History Furosemide [Furosemide] 20 mg PO DAILY 01/05/17 01/05/17 History Gabapentin 600 mg PO BEDTIME 01/05/17 01/05/17 History Gabapentin [Gabapentin] 300 mg PO BID 01/05/17 01/05/17 History Insulin Aspart [NovoLOG FlexPen] 12 units SUBCUT AC SUPPER 01/05/17 01/05/17 History Insulin Aspart [NovoLOG FlexPen] 14 units SUBCUT AC BREAKFAST 01/05/17 01/05/17 History Insulin Degludec [Tresiba 60 units SUBCUT AC BREAKFAST 01/05/17 01/05/17 History Flextouch U-200] Levothyroxine Sodium 75 mcg PO DAILY 01/05/17 01/05/17 History Lisinopril [Lisinopril] 5 mg PO DAILY 01/05/17 01/05/17 History Meclizine [Antivert] 25 mg PO TID 01/05/17 01/05/17 History Nitroglycerin [Nitroglycerin SL 0.4 mg SL DIRECTED 01/05/17 01/05/17 History Tab] Tamsulosin [Flomax] 0.4 mg PO DAILY 01/05/17 01/05/17 History amLODIPine [Norvasc] 5 mg PO DAILY 01/05/17 01/05/17 History Allergies/Adverse Reactions: Allergies Allergy/AdvReac Type Severity Reaction Status Date / Time No Known Allergies Allergy Unverified 01/05/17 13:06 ROS unobtainable: due to mental status - Constitutional Constitutional: Present: as per HPI - EENT Eyes: Present: as per HPI Nose, mouth and throat: Present: as per HPI - Cardiovascular Cardiovascular: Present: as per HPI - Respiratory Respiratory: Present: as per HPI - Gastrointestinal Gastrointestinal: Present: as per HPI - Genitourinary Genitourinary: Present: as per HPI - Musculoskeletal Musculoskeletal: Present: as per HPI - Neurological Neurological: Present: as per HPI - Psychiatric Psychiatric: Present: as per HPI - Endocrine Endocrine: Present: as per HPI - Hematologic/Lymphatic Hematologic/Lymphatic: Present: as per HPI Medical,Surgical,& Family Hx - Medical History Cardio: History of: CAD, Hypertension, PVD, Valvular Heart Disease (aortic stenosis) No history of: [place], Pacemaker Neurology: History of: Cerebrovascular Accident, Peripheral Neuropathy No history of: Seizures, TIA Endocrine: History of: Diabetes Mellitus (IDDM), Diabetes Mellitus (NIDDM), Dyslipidemia, Thyroid Disorder Respiratory: History of: Obstructive Sleep Apnea No history of: Pulmonary Hypertension (Untreated) Renal: History of: Renal Problems (Chronic renal insufficiency) Genitourinary: History of: Prostate Problems Gastrointestinal: History of: GERD No history of: Gastrointestinal Bleed Musculoskeletal: History of: Musculoskeletal Problems (Osteoarthritis) Other: No history of: Cancer - Surgical History Cardiac Surgeries: Sugical HX of: Cardiac Catheterization (Mid RCA stent 2 in 2006), Carotid Endarterectomy (Bilateral) Neurologic Surgeries: Patient denies: Neurologic Surgery HEENT Surgeries: Surgical HX of: Carotid Endarterectomy Orthopedic Surgeries: Patient denies;: Implanted Devices - Family History Family History: Reports;: Family Diabetes, Family Hypertension Denies;: Family Heart Disease - Social History Smoking Status: Former smoker Frequency of Alcohol Use: None Type of Drug Use: None Physical Examination Vital Signs Temp Pulse Resp BP Pulse Ox 96.5 F L 70 18 94/43 93 L 01/05/17 13:03 01/05/17 13:03 01/05/17 13:03 01/05/17 13:03 01/05/17 13:03 General: Present: No Apparent Distress, Other (frail; obese) HEENT: Present: PERRL, Normocephaly. Absent: Pallor Neck: Present: Midline Trachea, No JVD/HJR, No Masses, No Bruit Cardiac: Present: Reg Rate and Rhythm, Systolic Murmur Lungs: Present: Bibasilar Rales (faint), No Wheezes, No Rhonchi. Absent: Oxygen Neuro: Present: Grossly Intact. Absent: Numbness, Weakness, Resting Tremor, Essential Tremor Abdomen: Present: Soft, Active Bowel Sounds, No Masses. Absent: Ascites, Tender , Firm, Distended Skin: Present: Other (warm, dry). Absent: Rash, Suspicious Lesions, Bruising Musculoskeletal: Present: Decreased Range of Motion Extremities: Present: No Edema, Normal Upper Extr. Pulses (3+ bilaterally), Normal Lower Extr. Pulses (1-2+ bilaterally), Capillary Refill (normal) Result/EKG - Labs CBC & BMP: 01/06/17 05:00 01/06/17 05:00 Lab Results: I have reviewed the past 24 hour labs Labs: Laboratory Results - last 24 hr 01/05/17 01/05/17 01/05/17 13:37 13:37 14:30 WBC 10.9 RBC 4.97 Hgb 14.5 Hct 44.6 MCV 89.7 MCH 29 MCHC 32.5 RDW 14.6 Plt Count 217 MPV 11.1 Neut % (Auto) 58.2 Lymph % (Auto) 25.0 [place] % (Auto) 11.3 Eos % (Auto) 3.2 Baso % (Auto) 1.6 H Neut # (Auto) 6.4 Lymph # (Auto) 2.7 [place] # (Auto) 1.2 H Eos # (Auto) 0.4 Baso # (Auto) 0.2 Immature Gran % 0.7 Nucleated RBC % 0.0 Immature Gran # 0.08 Nucleated RBCs # 0.00 Immature Plt Fraction 0.0 ABG pH ABG pCO2 ABG pO2 ABG HCO3 ABG Total CO2 ABG O2 Saturation ABG Base Excess Sodium 136 Potassium 4.6 Chloride 101 Carbon Dioxide 27 Anion Gap 12.6 BUN 25 H Creatinine 2.00 H GFR Calculation 37 BUN/Creatinine Ratio 12.00 Glucose 147 H POC Glucose Hemoglobin A1c Calculated Osmolality 278.0 Calcium 9.1 Magnesium 1.5 L Total Bilirubin 0.60 AST 30 ALT 28 Alkaline Phosphatase 62 Ammonia Total Creatine Kinase CK-MB (CK-2) CK and CKMB Interp Troponin I Total Protein 7.1 Albumin 3.5 Globulin 3.6 H Albumin/Globulin Ratio 0.9 L Triglycerides Cholesterol LDL Cholesterol VLDL Cholesterol HDL Cholesterol Heart Disease Risk Ratio Free T4 TSH 3rd Generation Urine Color Yellow Urine Appearance Slightly hazy Urine pH 5.0 Ur Specific Alexis 1.012 Urine Protein 30 Urine Glucose (UA) Negative Urine Ketones Negative Urine Blood Negative Urine Nitrate Negative Urine Bilirubin Negative Urine Urobilinogen < 2.0 H Urine Leukocytes Moderate H Urine RBC 3 Urine WBC 17 Ur Squamous Epith Cells Occasional Urine Bacteria Few Urine Mucus Occasional Ur Culture Indicated? Results to follow 01/05/17 01/05/17 01/05/17 17:38 17:41 19:58 WBC RBC Hgb Hct MCV MCH MCHC RDW Plt Count MPV Neut % (Auto) Lymph % (Auto) [place] % (Auto) Eos % (Auto) Baso % (Auto) Neut # (Auto) Lymph # (Auto) [place] # (Auto) Eos # (Auto) Baso # (Auto) Immature Gran % Nucleated RBC % Immature Gran # Nucleated RBCs # Immature Plt Fraction ABG pH 7.377 ABG pCO2 40.6 ABG pO2 98.1 H ABG HCO3 23.3 ABG Total CO2 24.6 ABG O2 Saturation 97.6 ABG Base Excess -1.7 Sodium Potassium Chloride Carbon Dioxide Anion Gap BUN Creatinine GFR Calculation BUN/Creatinine Ratio Glucose POC Glucose 142 H Hemoglobin A1c Calculated Osmolality Calcium Magnesium Total Bilirubin AST ALT Alkaline Phosphatase Ammonia 31 Total Creatine Kinase 155 CK-MB (CK-2) 7.8 H CK and CKMB Interp 5.0 Troponin I 0.075 H Total Protein Albumin Globulin Albumin/Globulin Ratio Triglycerides Cholesterol LDL Cholesterol VLDL Cholesterol HDL Cholesterol Heart Disease Risk Ratio Free T4 TSH 3rd Generation Urine Color Urine Appearance Urine pH Ur Specific Alexis Urine Protein Urine Glucose (UA) Urine Ketones Urine Blood Urine Nitrate Urine Bilirubin Urine Urobilinogen Urine Leukocytes Urine RBC Urine WBC Ur Squamous Epith Cells Urine Bacteria Urine Mucus Ur Culture Indicated? 01/05/17 01/06/17 01/06/17 22:38 05:00 05:00 WBC 9.3 RBC 4.70 Hgb 13.8 L Hct 42.1 MCV 89.6 MCH 29 MCHC 32.8 RDW 14.5 Plt Count 189 MPV 10.9 Neut % (Auto) 53.7 Lymph % (Auto) 27.4 [place] % (Auto) 11.9 Eos % (Auto) 5.0 Baso % (Auto) 1.7 H Neut # (Auto) 5.0 Lymph # (Auto) 2.5 [place] # (Auto) 1.1 H Eos # (Auto) 0.5 Baso # (Auto) 0.2 Immature Gran % 0.3 Nucleated RBC % 0.0 Immature Gran # 0.03 Nucleated RBCs # 0.00 Immature Plt Fraction 0.0 ABG pH ABG pCO2 ABG pO2 ABG HCO3 ABG Total CO2 ABG O2 Saturation ABG Base Excess Sodium 138 Potassium 4.7 Chloride 103 Carbon Dioxide 26 Anion Gap 13.7 BUN 22 H Creatinine 1.30 GFR Calculation 63 BUN/Creatinine Ratio 16.00 Glucose 113 H POC Glucose Hemoglobin A1c Calculated Osmolality 278.7 Calcium 9.1 Magnesium 2.1 Total Bilirubin AST ALT Alkaline Phosphatase Ammonia Total Creatine Kinase 132 CK-MB (CK-2) 6.9 H CK and CKMB Interp 5.2 Troponin I 0.061 H Total Protein Albumin Globulin Albumin/Globulin Ratio Triglycerides 134 Cholesterol 117 LDL Cholesterol 62.0 VLDL Cholesterol 26.8 HDL Cholesterol 31 L Heart Disease Risk Ratio 3.77 Free T4 TSH 3rd Generation 1.920 Urine Color Urine Appearance Urine pH Ur Specific Alexis Urine Protein Urine Glucose (UA) Urine Ketones Urine Blood Urine Nitrate Urine Bilirubin Urine Urobilinogen Urine Leukocytes Urine RBC Urine WBC Ur Squamous Epith Cells Urine Bacteria Urine Mucus Ur Culture Indicated? 01/06/17 01/06/17 01/06/17 05:00 05:00 07:27 WBC RBC Hgb Hct MCV MCH MCHC RDW Plt Count MPV Neut % (Auto) Lymph % (Auto) [place] % (Auto) Eos % (Auto) Baso % (Auto) Neut # (Auto) Lymph # (Auto) [place] # (Auto) Eos # (Auto) Baso # (Auto) Immature Gran % Nucleated RBC % Immature Gran # Nucleated RBCs # Immature Plt Fraction ABG pH ABG pCO2 ABG pO2 ABG HCO3 ABG Total CO2 ABG O2 Saturation ABG Base Excess Sodium Potassium Chloride Carbon Dioxide Anion Gap BUN Creatinine GFR Calculation BUN/Creatinine Ratio Glucose POC Glucose 153 H Hemoglobin A1c 7.1 H Calculated Osmolality Calcium Magnesium Total Bilirubin AST ALT Alkaline Phosphatase Ammonia Total Creatine Kinase CK-MB (CK-2) CK and CKMB Interp Troponin I Total Protein Albumin Globulin Albumin/Globulin Ratio Triglycerides Cholesterol LDL Cholesterol VLDL Cholesterol HDL Cholesterol Heart Disease Risk Ratio Free T4 0.82 TSH 3rd Generation Urine Color Urine Appearance Urine pH Ur Specific Alexis Urine Protein Urine Glucose (UA) Urine Ketones Urine Blood Urine Nitrate Urine Bilirubin Urine Urobilinogen Urine Leukocytes Urine RBC Urine WBC Ur Squamous Epith Cells Urine Bacteria Urine Mucus Ur Culture Indicated? - Diagnostic Findings Procedure: Chest x-ray: image reviewed by me, report reviewed by me - EKG EKG results: interpreted by me, no acute changes EKG shows: sinus rhythm IRaj Dale, MD, personally performed the services described in this documentation, ascribed by Ruthie Esquivel RN in my presence, and it is both accurate and complete .
[2017-01-06] MEDS: GABAPENTIN 300 MG CAPSULE PO SCH (21:05)
[2017-01-07 05:22] LABS: Basophils # 0.2 10*3/uL (0.0-0.2); Basophils % 1.6 % (0.0-0.8); Eosinophils # 0.4 10*3/uL (0.0-0.87); Eosinophils % 4.8 % (0.00-10.9); Hematocrit 43.7 VOL% (42.0-52.0); Hemoglobin 14.1 GM/DL (14.0-18.0); Immature Granulocytes % 0.9 %; Immature Granulocytes Absolute 0.08 #; Lymphocytes # 3.2 10*3/uL (1.4-4.0); Lymphocytes % 34.4 % (21.2-54.2); Mean Corpuscular HGB Conc 32.3 GM/DL (32-36); Mean Corpuscular Hemoglobin 29 PG (27-34); Mean Corpuscular Volume 90.1 FL (87-102); Monocytes # 0.9 10*3/uL (0.11-0.8); Monocytes % 10.2 % (1.7-12.7); Neutrophils # 4.4 10*3/uL (1.4-7.4); Neutrophils % 48.1 % (38.7-73.9); Platelet Count 192 T/CUMM (130-400); Red Blood Count 4.85 MC/CUMM (3.8-5.5); Red Cell Distribution Width 14.6 % (9.3-17.3); White Blood Count 9.2 T/CUMM (4-12)
[2017-01-07] MEDS: SODIUM CHLORIDE 0.9% 1,000 ML IV SCH ×3 (05:30→13:56)
[2017-01-07 05:50] LABS: Calcium 9.1 MG/DL (8.5-10.1); Osmolality,Calculated 278.7 MOS/KG (273-304); Potassium 4.7 MMOL/L (3.5-5.1)
[2017-01-07] MEDS: INSULIN LISPRO 100 UNIT/ML SUBCUT SCH ×6 (09:20→23:46)
[2017-01-07] MEDS: LISINOPRIL 5 MG TABLET PO SCH (09:56)
[2017-01-07] MEDS: ASPIRIN EC 81 MG TABLET PO SCH (09:56)
[2017-01-07] MEDS: CITALOPRAM 20 MG TABLET PO SCH (09:56)
[2017-01-07] MEDS: LEVOTHYROXINE 75 MCG TABLET PO SCH (09:56)
[2017-01-07] MEDS: PANTOPRAZOLE 40 MG TABLET PO SCH (09:57)
[2017-01-07] MEDS: amLODIPine 5 MG TABLET PO SCH (09:57)
[2017-01-07] MEDS: POLYETHYLENE GLYCOL POWDER 17 GM PACK PO SCH (09:57)
--- NOTE | 2017-01-07 12:35 | Sleep Medicine Progress Note ---
Assessment and Plan (1) QUINCY (obstructive sleep apnea) Status: Chronic Assessment and plan: Patient still has significant QUINCY by HST. We will initiate auto titration CPAP tonight. Current Visit: Yes (2) Diabetes Status: Chronic Current Visit: Yes Sleep Medicine Subjective Interval history: Patient did have HST done last night and this reveals severe obstructive sleep apnea with a event index of over 40 with significant O2 desaturation. I reviewed his findings with the patient and his family. We will start him on auto titration CPAP tonight and follow up his response. Exam (Progress Note) - Constitutional Vitals: Period Temp Pulse Resp BP Sys/Zurita Pulse Ox Last 24 Hr 97.4 F-98.6 F 58-88 18-20 121-212/60-105 88-95 Exam: Patient was alert and responsive and answers questions appropriately. He is undergoing EEG at present during this exam. Results - Labs CBC & BMP: 01/07/17 04:21 01/07/17 04:21 Lab Results: I have reviewed the past 24 hour labs
--- NOTE | 2017-01-07 15:04 | Neurology Progress Note ---
Neurology - PN : Subjective Interval history: Patient seems to be doing about the same. No new problems reported. No more syncopal episode reported either. EEG is pending. Exam (Progress Note) - Constitutional Vitals: Period Temp Pulse Resp BP Sys/Zurita Pulse Ox Last 24 Hr 97.4 F-98.6 F 58-88 18-20 121-212/60-105 88-95 Exam: GENERAL: Patient is in no acute distress. NECK: Neck is supple. There is no JVD. No carotid bruits present. No thyroid masses. CVS: First and second heart sounds are normal. There is no S3 present. Regular rate and rhythm. RESPIRATORY: Lungs are clear to auscultation without any rales or rhonchi. ABDOMEN: Soft and non-tender. Bowel sounds are present. There is no hepatosplenomegaly. EXT: There is no palpable edema. Peripheral pulses are present. Skin: No rashes Central Nervous system: General: Alert, awake and Oriented Speech: Fluent Comprehension: Intact and normal Facial expressions: Normal Cranial Nerves: CN1/Olfactory: Normal CN II/ Optic: Normal, Visual Ocampo unreliable CN III, and : INDU & EOMI CN V: Normal & intact CN VII: face is symmetric CNVIII: Normal CN XI/X/XI/XII: Intact and Normal Motor: Bulk and Tone is normal. Strength in the right 3-4/5 Strength in the left 3-4/5 Sensory: Unreliable Reflexes: 1+ and symmetrical Cerebellar function: Normal finger to nose and heel to velez testing. Toes: Equivocal Gait: Was able to get up with max assist and able to take a few steps to the chair with mod assist Results - Labs CBC & BMP: 01/07/17 04:21 01/07/17 04:21 Assessment and Plan (1) Syncope and collapse Status: Acute Assessment and plan: Etiology is not clear. None of the episodes has been witnessed by any physicians. Differential diagnosis would include orthostatic hypotension, cardiac arrhythmias or seizures. EEG pending. Continue watchful observation Current Visit: Yes
--- NOTE | 2017-01-07 18:21 | Hospitalist Progress Note ---
Assessment and Plan (1) Acute kidney injury Status: Acute Assessment and plan: Creatinine on admission was 2.0. This is improved to 1.3 with IV fluids at 75 cc/h. Continue IV fluids. Monitor renal function. Continue treatment of urinary tract infection. Current Visit: Yes (2) Dehydration Status: Acute Current Visit: Yes (3) Altered mental status Status: Acute Assessment and plan: His mental status has returned to normal. Will consult neurology and obtain records from [facility]. Cardiology following for evaluation of cardiogenic causes of syncope. Current Visit: Yes (4) History of CVA (cerebrovascular accident) Status: Chronic Current Visit: Yes (5) Syncope and collapse Status: Acute Assessment and plan: His spells of loss of consciousness sound more like a seizure and syncope. However it could be bradycardia, tachycardia, orthostatic hypotension, vasovagal , psychogenic, conversion reaction, or some other cause Plan/recommendation: He has had an echo done within the last 6 months which was okay Carotid ultrasounds done in 09/[address] of the head negative Agree with repeat EEG Agree with HST-likely has sleep apnea Check orthostatic blood pressures Monitor if he has a spell-glucose, blood pressure, rhythm, pulse If he has no more spells could let him go home and reuse a 30 day event monitor which she has to try to document rhythm during symptoms We have held multiple medications which could cause orthostatic hypotension, allowing his blood pressure to run higher baseline Current Visit: Yes (6) Aortic stenosis, moderate Status: Chronic Current Visit: Yes (7) Urinary tract infection Status: Acute Assessment and plan: Continue Rocephin. Follow-up cultures Current Visit: Yes Qualifiers: Urinary tract infection type: acute cystitis Hematuria presence: without hematuria Qualified Code(s): N30.00 - Acute cystitis without hematuria Hospitalist: Subjective Interval history: Patient seen and examined. No acute events overnight. Case discussed with nursing staff. Labs reviewed. The case was discussed with the patient's at the bedside. Cardiology and neurology consults reviewed. EEG is pending. I agree with the cardiology assessment listed below. His spells of loss of consciousness sound more like a seizure and syncope. However it could be bradycardia, tachycardia, orthostatic hypotension, vasovagal , psychogenic, conversion reaction, or some other cause Plan/recommendation: He has had an echo done within the last 6 months which was okay Carotid ultrasounds done in 09/[address] of the head negative Agree with repeat EEG Agree with HST-likely has sleep apnea Check orthostatic blood pressures Monitor if he has a spell-glucose, blood pressure, rhythm, pulse If he has no more spells could let him go home and reuse a 30 day event monitor which she has to try to document rhythm during symptoms We have held multiple medications which could cause orthostatic hypotension, allowing his blood pressure to run higher baseline Exam - Constitutional Vitals: Period Temp Pulse Resp BP Sys/Zurita Pulse Ox Last 24 Hr 97.4 F-98.6 F 58-88 18-20 121-212/60-105 88-95 Exam: Constitutional System: No distress. No tremulousness. Head: Normocephalic, atraumatic. Ears, Nose and Throat System: No pain or tenderness. No epistaxis or discharge Eyes System: Pupils equal, round, and reactive. Extraocular muscles intact. Neck: Supple, without adenopathy, No jugular venous distention. Respiratory System: Chest clear to auscultation. Cardiovascular System: Heart with regular rate and rhythm. Systolic murmur noted. GI System: Abdomen soft, nontender. Normo active bowel sounds present. Musculoskeletal System: limbs with no pedal edema. Full distal pulses. Neurological System: No discernable sensory deficit. No aphasia Psychiatric System: Conversation is rational Results - Labs CBC & BMP: 01/07/17 04:21 01/07/17 04:21 Lab Results: I have reviewed the past 24 hour labs
[2017-01-07] MEDS: cefTRIAXone 1,000 MG in SODIUM CHLORIDE 0.9% 100 ML IV SCH (18:54)
[2017-01-07] MEDS: GABAPENTIN 300 MG CAPSULE PO SCH (22:36)
--- NOTE | 2017-01-07 23:38 | Cardiology Progress Note ---
Alvin Crocker Vanessa RN, am scribing for, and in the presence of, Froilan Anthony MD 23:37. Assessment and Plan - Time spent with patient Time spent with patient: Greater than 30 minutes (1) Near syncope Status: Acute Assessment and plan: 81-year-old WM with past medical history of hypertension, diabetes, dyslipidemia , CAD with previous stenting, untreated QUINCY, CVA, and possible history of PAF. He also had moderate , preserved LV function, and has been experiencing near syncopal episode with orthostatic symptoms a little over 1 week now. Essentially, he is nonambulatory and spends majority of time lying in bed. December ASSESSMENT/PLAN: 1. NEAR SYNCOPE- No further near syncope since admission. Cardiac monitoring and has been nonrevealing. Recent CT/MRI head at [facility] - records are being obtained. Place event monitor (family to bring from home) prior to discharge. 2. ORTHOSTASIS- Could certainly contribute to patient's symptoms. Medications adjusted and discontinued during office visit with Dr. Celestin yesterday. Monitor orthostatic VS. Adjust medications accordingly. 3. HYPERTENSION- Chronic; Monitor BP and adjust med regimen as indicated. He was actually hypotensive upon presentation to the ER and required IVF bolus. 4. HYPOTHYROID- TSH 1.920 this admit. Thyroid supplement continued. 5. AORTIC STENOSIS- Known history of and remains moderate per recent echo. Could possibly be contributing to orthostatic symptoms and near syncope. 6. HISTORY OF CAD- Appears stable at this time. previous stenting of RCA in 2006. He currently takes low dose ASA. 7. PAF- Review of old records indicate possibly history of PAF but unclear. Family denies any knowledge of atrial fibrillation. He is not formally anticoagulated for stroke prevention. 8. QUINCY- Untreated. Diagnosed years ago, but was intolerant of CPAP. Family request patient to be reevaluated and treated. Sleep disorder could contribute to patient's symptoms. Sleep medicine has been consulted to review. 9. DYSLIPDIEMIA- FLP this morning overall unremarkable. Noted to have statin intolerance in the past, but home med list indicates he is prescribed atorvastatin. 10. DIABETES- Continue current plan of care. Defer primary management to attending. No significant hypo/hyperglycemia associated with episodes of syncope. 11. UTI- Started on IV antibiotic by hospital medicine. Urine culture pending. 12. PVD- Appears stable at this time. He has had previous stenting of BLEs in the past in [place], [place]. Continue BLE TEDs. His spells of loss of consciousness sound more like a seizure and syncope. However it could be bradycardia, tachycardia, orthostatic hypotension, vasovagal , psychogenic, conversion reaction, or some other cause Plan/recommendation: He has had an echo done within the last 6 months which was okay Carotid ultrasounds done in 09/[address] of the head negative Agree with repeat EEG Agree with HST-likely has sleep apnea Check orthostatic blood pressures Monitor if he has a spell-glucose, blood pressure, rhythm, pulse If he has no more spells could let him go home and reuse a 30 day event monitor which she has to try to document rhythm during symptoms We have held multiple medications which could cause orthostatic hypotension, allowing his blood pressure to run higher baseline I will follow along with you. Thank you for allowing me to participate in this patient's care December ASSESSMENT/PLAN: 1. NEAR SYNCOPE-no recurrence of syncope since admission. Cardiac monitoring nonrevealing. Recent head CT/carotid Doppler ultrasound at [facility]-records reviewed and no acute source for symptoms. Place 30 day event monitor prior to discharge. 2. ORTHOSTASIS- Could certainly contribute to patient's symptoms. Medications recently adjusted and discontinued at visit with Dr. Celestin.. Monitor orthostatic VS. Adjust medications accordingly. 3. HYPERTENSION- Chronic; Monitor BP and adjust med regimen as indicated. He was actually hypotensive upon presentation to the ER and required IVF bolus. 4. HYPOTHYROID- TSH 1.920 this admit. Thyroid supplement continued. 5. AORTIC STENOSIS- Known history of and remains moderate per recent echo. Could possibly be contributing to orthostatic symptoms and near syncope. 6. HISTORY OF CAD- Appears stable at this time. previous stenting of RCA in 2006. He currently takes low dose ASA. 7. PAF- Review of old records indicate possibly history of PAF but unclear. Family denies any knowledge of atrial fibrillation. He is not formally anticoagulated for stroke prevention. 8. QUINCY- Untreated. Diagnosed years ago, but was intolerant of CPAP. Sleep disorder could contribute to patient's symptoms. Evaluated by Dr. Montiel and had HST last night. Results pending. 9. DYSLIPDIEMIA- FLP this morning overall unremarkable. Continue current dose of atorvastatin. 10. DIABETES- Continue current plan of care. Defer primary management to attending. Glucose levels stable since admission. 11. UTI-IV antibiotics in place. Final culture was negative. 12. PVD- Appears stable at this time. He has had previous stenting of BLEs in the past in [place], [place]. Continue BLE TEDs. No more episodes of syncope He was found on HST to have significant sleep apnea. I suppose it could contribute to labile hypertension and autonomic dysfunction We'll try not to over treat his hypertension as he could have orthostatic hypotension or labile htn Checking orthostatic blood pressures Continue response to follow response to treatment of sleep apnea Current Visit: Yes (2) Altered mental status Status: Acute Assessment and plan: SEE PLAN OF CARE LISTED ABOVE. Current Visit: Yes (3) Urinary tract infection Status: Acute Assessment and plan: SEE PLAN OF CARE LISTED ABOVE. Current Visit: Yes Qualifiers: Urinary tract infection type: acute cystitis Hematuria presence: without hematuria Qualified Code(s): N30.00 - Acute cystitis without hematuria (4) Aortic stenosis, moderate Status: Chronic Assessment and plan: SEE PLAN OF CARE LISTED ABOVE. Current Visit: Yes (5) Diabetes Status: Chronic Assessment and plan: SEE PLAN OF CARE LISTED ABOVE. Current Visit: Yes (6) QUINCY (obstructive sleep apnea) Status: Chronic Assessment and plan: SEE PLAN OF CARE LISTED ABOVE. Current Visit: Yes (7) History of CVA (cerebrovascular accident) Status: Chronic Assessment and plan: SEE PLAN OF CARE LISTED ABOVE. Current Visit: Yes (8) Hypothyroidism Status: Chronic Assessment and plan: SEE PLAN OF CARE LISTED ABOVE. Current Visit: Yes Cardiology - PN: Subj Interval history: SALVAGE INSPECTOR: DR. CELESTIN SUMMARY: Mr. Badillo, 81-year-old WM, with risk factor significant for: Hypertension, diabetes, dyslipidemia, sedentary lifestyle, obesity, previous history of CAD, and he is a former smoker. Past medical history significant for untreated QUINCY, CVA with previous bilateral CEAs, chronic renal insufficiency, PVD, and hypothyroidism. Also has reported history of PAF. Status post PTCA with stenting 2 of mid RCA per Dr. Lassiter in January 2007. He has also had previous stenting of bilateral lower extremities in [place]. He has a known moderate aortic stenosis, preserved LV systolic function, EF 55-60% per echo on 12/31 ([facility]-Dr. Clarke). Mr. Badillo is now admitted to [facility]'s telemetry unit for further observation and evaluation of syncopal episodes. He has been admitted to both [facility] and [facility] in the past week for observation of this. Previous diagnostic workup has been relatively benign. However, he has had some orthostasis, and medications were recently discontinued per primary horse show manager in an effort to alleviate some of the orthostatic hypotension he has been experiencing. Admitted after a recurrence of a syncopal episode, longer than usual per family report, lasting 15-20 minutes. He was hypotensive in ER and noted to have acute kidney injury, both of which have responded well with IV fluids. Initial UA revealed UTI, but final culture negative. Patient was given a 30 day event monitor at appointment with Dr. Desai on 01/05, but monitor had not been attached/activated at time a prolonged episode. Cardiology was consulted for further evaluation and review. December: No acute changes in hemodynamics overnight. Mr. Badillo is up in bedside chair this morning, appears to be feeling well, and is pleasant. is present at bedside with him. No chest pain, shortness of breath. No further syncopal episodes or confusion since admission. Appetite is good. Hypertensive earlier, 210/100. IV fluids were stopped. Creatinine continues to improve, and today is 1.2. Patient's event monitor has been brought to hospital and is present with him. Will have this placed and activated prior to discharge home. Telemetry monitoring demonstrates sinus rhythm with HR 60s, no ectopy or dysrhythmia. Labs reviewed. As above. Electrolyte within acceptable range. Cell counts unremarkable. Neurology and sleep medicine have been consulted, and they have evaluated. HST last with final results pending. Exam (Progress Note) - Constitutional Vitals: Period Temp Pulse Resp BP Sys/Zurita Pulse Ox Last 24 Hr 97 F-98.6 F 59-88 18-20 121-212/60-105 88-95 Exam: General: Present: No Apparent Distress, Other (frail; obese) HEENT: Present: PERRL, Normocephaly. Absent: Pallor Neck: Present: Midline Trachea, No JVD/HJR, No Masses, No Bruit Cardiac: Present: Reg Rate and Rhythm, Systolic Murmur Lungs: Present: Bibasilar Rales (faint), No Wheezes, No Rhonchi. Absent: Oxygen Neuro: Present: Grossly Intact. Absent: Numbness, Weakness, Resting Tremor, Essential Tremor Abdomen: Present: Soft, Active Bowel Sounds, No Masses. Absent: Ascites, Tender , Firm, Distended Skin: Present: Other (warm, dry). Absent: Rash, Suspicious Lesions, Bruising Musculoskeletal: Present: Decreased Range of Motion Extremities: Present: No Edema, Normal Upper Extr. Pulses (3+ bilaterally), Normal Lower Extr. Pulses (1-2+ bilaterally), Capillary Refill (normal) Result/EKG - Labs CBC & BMP: 01/07/17 04:21 01/07/17 04:21 Lab Results: I have reviewed the past 24 hour labs Labs: Laboratory Results - last 24 hr 01/06/17 01/06/17 01/06/17 11:25 17:29 20:28 WBC RBC Hgb Hct MCV MCH MCHC RDW Plt Count MPV Neut % (Auto) Lymph % (Auto) [place] % (Auto) Eos % (Auto) Baso % (Auto) Neut # (Auto) Lymph # (Auto) [place] # (Auto) Eos # (Auto) Baso # (Auto) Immature Gran % Nucleated RBC % Immature Gran # Nucleated RBCs # Immature Plt Fraction Sodium Potassium Chloride Carbon Dioxide Anion Gap BUN Creatinine GFR Calculation BUN/Creatinine Ratio Glucose POC Glucose 148 H 126 H 135 H Calculated Osmolality Calcium 01/07/17 01/07/17 01/07/17 04:21 04:21 08:03 WBC 9.2 RBC 4.85 Hgb 14.1 Hct 43.7 MCV 90.1 MCH 29 MCHC 32.3 RDW 14.6 Plt Count 192 MPV 11.0 Neut % (Auto) 48.1 Lymph % (Auto) 34.4 [place] % (Auto) 10.2 Eos % (Auto) 4.8 Baso % (Auto) 1.6 H Neut # (Auto) 4.4 Lymph # (Auto) 3.2 [place] # (Auto) 0.9 H Eos # (Auto) 0.4 Baso # (Auto) 0.2 Immature Gran % 0.9 Nucleated RBC % 0.0 Immature Gran # 0.08 Nucleated RBCs # 0.00 Immature Plt Fraction 0.0 Sodium 138 Potassium 4.7 Chloride 102 Carbon Dioxide 29 Anion Gap 11.7 BUN 21 H Creatinine 1.20 GFR Calculation 70 BUN/Creatinine Ratio 17.00 Glucose 117 H POC Glucose 129 H Calculated Osmolality 278.7 Calcium 9.1 - EKG EKG results: interpreted by me, no acute changes EKG shows: sinus rhythm Raj Crocker Dale, MD, personally performed the services described in this documentation, ascribed by Ruthie Esquivel RN in my presence, and it is both accurate and complete 337 .
[2017-01-08] MEDS: hydrALAZINE 20 MG/1 ML VIAL IV PRN (06:16)
[2017-01-08 06:22] LABS: Calcium 9.2 MG/DL (8.5-10.1); Magnesium 1.8 MG/DL (1.8-2.4); Osmolality,Calculated 273.1 MOS/KG (273-304); Potassium 4.7 MMOL/L (3.5-5.1)
[2017-01-08] MEDS: INSULIN LISPRO 100 UNIT/ML SUBCUT SCH ×6 (08:22→22:28)
[2017-01-08] MEDS: amLODIPine 5 MG TABLET PO SCH (09:08)
[2017-01-08] MEDS: LISINOPRIL 5 MG TABLET PO SCH (09:08)
[2017-01-08] MEDS: CITALOPRAM 20 MG TABLET PO SCH (10:10)
[2017-01-08] MEDS: POLYETHYLENE GLYCOL POWDER 17 GM PACK PO SCH (10:10)
[2017-01-08] MEDS: PANTOPRAZOLE 40 MG TABLET PO SCH (10:10)
[2017-01-08] MEDS: ASPIRIN EC 81 MG TABLET PO SCH (10:10)
[2017-01-08] MEDS: ACETAMINOPHEN 325 MG TABLET PO PRN (10:10)
[2017-01-08] MEDS: LEVOTHYROXINE 75 MCG TABLET PO SCH (10:10)
--- NOTE | 2017-01-08 12:10 | Sleep Medicine Progress Note ---
Assessment and Plan (1) QUINCY (obstructive sleep apnea) Status: Chronic Assessment and plan: Continue auto titration CPAP while hospitalized and at discharge. We will recheck mask fit and follow-up. Formal re-titration after discharge is recommended. Current Visit: Yes (2) Diabetes Status: Chronic Current Visit: Yes Sleep Medicine Subjective Interval history: Patient did sleep with auto titration CPAP last night and was on it for about 3- 1/2 hours. His average device pressure was almost 12 cm. He did have some mild mass leak and still has some respiratory events with an overall AHI of 15. However, this is better than baseline. He has some discomfort from his mask and I will ask sleep techs to recheck his mask. We will follow-up on his results with auto titration CPAP. I do think he would be best served by outpatient titration of CPAP and if continues to have uncontrolled sleep apnea, may need BiPAP. We also need to make sure that oxygen saturation is improved with CPAP and sleep study is the best way to document this. Exam (Progress Note) - Constitutional Vitals: Period Temp Pulse Resp BP Sys/Zurita Pulse Ox Last 24 Hr 97.5 F-98.2 F 59-120 18-18 80-188/23-97 90-93 Exam: Patient was alert and responsive and answers questions appropriately. He is undergoing EEG at present during this exam. Results - Labs CBC & BMP: 01/07/17 04:21 01/08/17 05:28 Lab Results: I have reviewed the past 24 hour labs
--- NOTE | 2017-01-08 15:41 | Neurology Progress Note ---
Neurology - PN : Subjective Interval history: Still feels extremely tired and fatigued. Not performing in physical therapy either. reported that they were trying to check his orthostatic vitals and he drop blood pressure good bit. Exam (Progress Note) - Constitutional Vitals: Period Temp Pulse Resp BP Sys/Zurita Pulse Ox Last 24 Hr 97.5 F-98.2 F 58-120 18-19 80-187/23-97 90-93 Exam: GENERAL: Patient is in no acute distress. NECK: Neck is supple. There is no JVD. No carotid bruits present. No thyroid masses. CVS: First and second heart sounds are normal. There is no S3 present. Regular rate and rhythm. RESPIRATORY: Lungs are clear to auscultation without any rales or rhonchi. ABDOMEN: Soft and non-tender. Bowel sounds are present. There is no hepatosplenomegaly. EXT: There is no palpable edema. Peripheral pulses are present. Skin: No rashes Central Nervous system: General: Alert, awake and Oriented Speech: Fluent Comprehension: Intact and normal Facial expressions: Normal Cranial Nerves: CN1/Olfactory: Normal CN II/ Optic: Normal, Visual Ocampo unreliable CN III, and : INDU & EOMI CN V: Normal & intact CN VII: face is symmetric CNVIII: Normal CN XI/X/XI/XII: Intact and Normal Motor: Bulk and Tone is normal. Strength in the right 3-4/5 Strength in the left 3-4/5 Sensory: Unreliable Reflexes: 1+ and symmetrical Cerebellar function: Normal finger to nose and heel to velez testing. Toes: Equivocal Gait: Not walking at all. Results - Labs CBC & BMP: 01/07/17 04:21 01/08/17 05:28 Assessment and Plan (1) Syncope and collapse Status: Acute Assessment and plan: Etiology is not clear. None of the episodes has been witnessed by any physicians. Differential diagnosis would include orthostatic hypotension, cardiac arrhythmias or seizures. Continue watchful observation Current Visit: Yes (2) Debility Status: Acute Assessment and plan: She is very deconditioned. He states that he cannot participate in 3 of therapy. He is not a good candidate for TMR. Consider swing bed placement Current Visit: Yes
[2017-01-08] MEDS: cefTRIAXone 1,000 MG in SODIUM CHLORIDE 0.9% 100 ML IV SCH (18:03)
--- NOTE | 2017-01-08 20:36 | Cardiology Progress Note ---
Alvin Crocker Vanessa RN, am scribing for, and in the presence of, Froilan Anthony MD 20:36. Assessment and Plan - Time spent with patient Time spent with patient: Greater than 30 minutes (1) Near syncope Status: Acute Assessment and plan: 81-year-old WM with past medical history of hypertension, diabetes, dyslipidemia , CAD with previous stenting, untreated QUINCY, CVA, and possible history of PAF. He also had moderate , preserved LV function, and has been experiencing near syncopal episode with orthostatic symptoms a little over 1 week now. Essentially, he is nonambulatory and spends majority of time lying in bed. December ASSESSMENT/PLAN: 1. NEAR SYNCOPE- No further near syncope since admission. Cardiac monitoring and has been nonrevealing. Recent CT/MRI head at [facility] - records are being obtained. Place event monitor (family to bring from home) prior to discharge. 2. ORTHOSTASIS- Could certainly contribute to patient's symptoms. Medications adjusted and discontinued during office visit with Dr. Celestin yesterday. Monitor orthostatic VS. Adjust medications accordingly. 3. HYPERTENSION- Chronic; Monitor BP and adjust med regimen as indicated. He was actually hypotensive upon presentation to the ER and required IVF bolus. 4. HYPOTHYROID- TSH 1.920 this admit. Thyroid supplement continued. 5. AORTIC STENOSIS- Known history of and remains moderate per recent echo. Could possibly be contributing to orthostatic symptoms and near syncope. 6. HISTORY OF CAD- Appears stable at this time. previous stenting of RCA in 2006. He currently takes low dose ASA. 7. PAF- Review of old records indicate possibly history of PAF but unclear. Family denies any knowledge of atrial fibrillation. He is not formally anticoagulated for stroke prevention. 8. QUINCY- Untreated. Diagnosed years ago, but was intolerant of CPAP. Family request patient to be reevaluated and treated. Sleep disorder could contribute to patient's symptoms. Sleep medicine has been consulted to review. 9. DYSLIPDIEMIA- FLP this morning overall unremarkable. Noted to have statin intolerance in the past, but home med list indicates he is prescribed atorvastatin. 10. DIABETES- Continue current plan of care. Defer primary management to attending. No significant hypo/hyperglycemia associated with episodes of syncope. 11. UTI- Started on IV antibiotic by hospital medicine. Urine culture pending. 12. PVD- Appears stable at this time. He has had previous stenting of BLEs in the past in [place], [place]. Continue BLE TEDs. His spells of loss of consciousness sound more like a seizure and syncope. However it could be bradycardia, tachycardia, orthostatic hypotension, vasovagal , psychogenic, conversion reaction, or some other cause Plan/recommendation: He has had an echo done within the last 6 months which was okay Carotid ultrasounds done in 09/[address] of the head negative Agree with repeat EEG Agree with HST-likely has sleep apnea Check orthostatic blood pressures Monitor if he has a spell-glucose, blood pressure, rhythm, pulse If he has no more spells could let him go home and reuse a 30 day event monitor which she has to try to document rhythm during symptoms We have held multiple medications which could cause orthostatic hypotension, allowing his blood pressure to run higher baseline I will follow along with you. Thank you for allowing me to participate in this patient's care December ASSESSMENT/PLAN: 1. NEAR SYNCOPE-no recurrence of syncope since admission. Cardiac monitoring nonrevealing. Recent head CT/carotid Doppler ultrasound at [facility]-records reviewed and no acute source for symptoms. Place 30 day event monitor prior to discharge. 2. ORTHOSTASIS- Could certainly contribute to patient's symptoms. Medications recently adjusted and discontinued at visit with Dr. Celestin.. Monitor orthostatic VS. Adjust medications accordingly. 3. HYPERTENSION- Chronic; Monitor BP and adjust med regimen as indicated. He was actually hypotensive upon presentation to the ER and required IVF bolus. 4. HYPOTHYROID- TSH 1.920 this admit. Thyroid supplement continued. 5. AORTIC STENOSIS- Known history of and remains moderate per recent echo. Could possibly be contributing to orthostatic symptoms and near syncope. 6. HISTORY OF CAD- Appears stable at this time. previous stenting of RCA in 2006. He currently takes low dose ASA. 7. PAF- Review of old records indicate possibly history of PAF but unclear. Family denies any knowledge of atrial fibrillation. He is not formally anticoagulated for stroke prevention. 8. QUINCY- Untreated. Diagnosed years ago, but was intolerant of CPAP. Sleep disorder could contribute to patient's symptoms. Evaluated by Dr. Montiel and had HST last night. Results pending. 9. DYSLIPDIEMIA- FLP this morning overall unremarkable. Continue current dose of atorvastatin. 10. DIABETES- Continue current plan of care. Defer primary management to attending. Glucose levels stable since admission. 11. UTI-IV antibiotics in place. Final culture was negative. 12. PVD- Appears stable at this time. He has had previous stenting of BLEs in the past in [place], [place]. Continue BLE TEDs. No more episodes of syncope He was found on HST to have significant sleep apnea. I suppose it could contribute to labile hypertension and autonomic dysfunction We'll try not to over treat his hypertension as he could have orthostatic hypotension or labile htn Checking orthostatic blood pressures Continue response to follow response to treatment of sleep apnea December ASSESSMENT/PLAN: 1. NEAR SYNCOPE-no recurrence of syncope since admission. Cardiac monitoring nonrevealing. Recent head CT/carotid Doppler ultrasound at [facility]-records reviewed and no acute source for symptoms. Place 30 day event monitor prior to discharge. 2. ORTHOSTASIS- Having a moderate amount of orthostasis. 3. HYPERTENSION- Chronic; Monitor BP and adjust med regimen as indicated. He was actually hypotensive upon presentation to the ER and required IVF bolus. 4. HYPOTHYROID- TSH 1.920 this admit. Thyroid supplement continued. 5. AORTIC STENOSIS- Known history of and remains moderate per recent echo. Could possibly be contributing to orthostatic symptoms and near syncope. 6. HISTORY OF CAD- Appears stable at this time. previous stenting of RCA in 2006. He currently takes low dose ASA. 7. PAF- Review of old records indicate possibly history of PAF but unclear. Family denies any knowledge of atrial fibrillation. He is not formally anticoagulated for stroke prevention. 8. QUINCY-intolerant of CPAP in the past. HST this admit reviewed severe sleep apnea. Patient now using CPAP, auto titrating. 9. DYSLIPDIEMIA- FLP this admission unremarkable. Continue current dose of atorvastatin. 10. DIABETES- Continue current plan of care. Defer primary management to attending. Glucose levels stable. 11. UTI-IV antibiotics in place. Final culture was negative. 12. PVD- Appears stable at this time. He has had previous stenting of BLEs in the past in [place], [place]. Continue BLE TEDs. Plan/recommendation/assessment: It seems that orthostatic hypotension may be the cause of his spells. He at least had a significant drop in his blood pressure when he stood, but no symptoms, but maybe would have symptoms if it dropped lower The SSRI, Celexa, could be contributing to her causing the orthostatic hypotension We will discontinue Celexa We will give a trial of bupropion-it does not cause orthostatic hypotension and can still treat his depression and anxiety Treatment of sleep apnea would probably help his swings in blood pressure and other problems I have encouraged him to use his CPAP and keep his appointment for follow-up Current Visit: Yes (2) Altered mental status Status: Acute Assessment and plan: SEE PLAN OF CARE LISTED ABOVE. Current Visit: Yes (3) Urinary tract infection Status: Acute Assessment and plan: SEE PLAN OF CARE LISTED ABOVE. Current Visit: Yes Qualifiers: Urinary tract infection type: acute cystitis Hematuria presence: without hematuria Qualified Code(s): N30.00 - Acute cystitis without hematuria (4) Aortic stenosis, moderate Status: Chronic Assessment and plan: SEE PLAN OF CARE LISTED ABOVE. Current Visit: Yes (5) Diabetes Status: Chronic Assessment and plan: SEE PLAN OF CARE LISTED ABOVE. Current Visit: Yes (6) QUINCY (obstructive sleep apnea) Status: Chronic Assessment and plan: SEE PLAN OF CARE LISTED ABOVE. Current Visit: Yes (7) History of CVA (cerebrovascular accident) Status: Chronic Assessment and plan: SEE PLAN OF CARE LISTED ABOVE. Current Visit: Yes (8) Hypothyroidism Status: Chronic Assessment and plan: SEE PLAN OF CARE LISTED ABOVE. 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 CELESTIN SUMMARY: Mr. Badillo, 81-year-old WM, with risk factor significant for: Hypertension, diabetes, dyslipidemia, sedentary lifestyle, obesity, previous history of CAD, and he is a former smoker. Past medical history significant for untreated QUINCY, CVA with previous bilateral CEAs, chronic renal insufficiency, PVD, and hypothyroidism. Also has reported history of PAF. Status post PTCA with stenting 2 of mid RCA per Dr. Lassiter in January 2007. He has also had previous stenting of bilateral lower extremities in [place]. He has a known moderate aortic stenosis, preserved LV systolic function, EF 55-60% per echo on 12/31 ([facility]-Dr. Clarke). Mr. Badillo is now admitted to [facility]'s telemetry unit for further observation and evaluation of syncopal episodes. He has been admitted to both [facility] and [facility] in the past week for observation of this. Previous diagnostic workup has been relatively benign. However, he has had some orthostasis, and medications were recently discontinued per primary conference reservationist in an effort to alleviate some of the orthostatic hypotension he has been experiencing. Admitted after a recurrence of a syncopal episode, longer than usual per family report, lasting 15-20 minutes. He was hypotensive in ER and noted to have acute kidney injury, both of which have responded well with IV fluids. Initial UA revealed UTI, but final culture negative. Patient was given a 30 day event monitor at appointment with Dr. Desai on 01/05, but monitor had not been attached/activated at time a prolonged episode. Cardiology was consulted for further evaluation and review. December: Mr. Badillo is pleasant this morning. is present at bedside with him. No chest pain or shortness of breath. Orthostatic vital reviewed. He is having moderate amount orthostasis. SBP 160 while supine, and BP down to 80/23 standing. Interestingly, associated tachycardia with HR up to 120 while standing. HST this admission revealed severe obstructive sleep apnea, and patient was started on CPAP machine last night. Reports he slept fairly well with it. Telemetry monitoring demonstrates sinus rhythm without disturbance. Neurology is following also, and Dr. Lewis has evaluated. EEG is pending. Patient is being evaluated for transfer to [facility] rehab, and hopefully can go in the next 1-2 days. Labs reviewed. Overall unremarkable. Exam (Progress Note) - Constitutional Vitals: Period Temp Pulse Resp BP Sys/Zurita Pulse Ox Last 24 Hr 97.6 F-98.3 F 58-76 18-20 132-210/64-97 90-94 Exam: General: Present: No Apparent Distress, Other (frail; obese) HEENT: Present: PERRL, Normocephaly. Absent: Pallor Neck: Present: Midline Trachea, No JVD/HJR, No Masses, No Bruit Cardiac: Present: Reg Rate and Rhythm, Systolic Murmur Lungs: Present: Bibasilar Rales (faint), No Wheezes, No Rhonchi. Absent: Oxygen Neuro: Present: Grossly Intact. Absent: Numbness, Weakness, Resting Tremor, Essential Tremor Abdomen: Present: Soft, Active Bowel Sounds, No Masses. Absent: Ascites, Tender , Firm, Distended Skin: Present: Other (warm, dry). Absent: Rash, Suspicious Lesions, Bruising Musculoskeletal: Present: Decreased Range of Motion Extremities: Present: No Edema, Normal Upper Extr. Pulses (3+ bilaterally), Normal Lower Extr. Pulses (1-2+ bilaterally), Capillary Refill (normal) Result/EKG - Labs CBC & BMP: 01/07/17 04:21 01/08/17 05:28 Lab Results: I have reviewed the past 24 hour labs Labs: Laboratory Results - last 24 hr 01/07/17 01/07/17 01/07/17 11:51 16:21 20:55 Sodium Potassium Chloride Carbon Dioxide Anion Gap BUN Creatinine GFR Calculation BUN/Creatinine Ratio Glucose POC Glucose 110 H 123 H 166 H Calculated Osmolality Calcium Magnesium 01/08/17 01/08/17 05:28 07:51 Sodium 135 L Potassium 4.7 Chloride 100 Carbon Dioxide 29 Anion Gap 10.7 BUN 22 H Creatinine 1.10 GFR Calculation 77 BUN/Creatinine Ratio 20.00 Glucose 120 H POC Glucose 121 H Calculated Osmolality 273.1 Calcium 9.2 Magnesium 1.8 - EKG EKG results: interpreted by me, no acute changes EKG shows: sinus rhythm I, Froilan Anthony MD, personally performed the services described in this documentation, ascribed by Ruthie Esquivel RN in my presence, and it is both accurate and complete .
--- NOTE | 2017-01-08 20:48 | Hospitalist Progress Note ---
Hospitalist: Subjective Interval history: Patient was admitted with syncopal episode, he has significant orthostatic hypotension, several medications were held in that regard Exam - Constitutional Vitals: Period Temp Pulse Resp BP Sys/Zurita Pulse Ox Last 24 Hr 97.4 F-98 F 58-120 18-20 80-172/23-97 90-95 Exam: Constitutional System: No distress. No tremulousness. Head: Normocephalic, atraumatic. Ears, Nose and Throat System: No pain or tenderness. No epistaxis or discharge Eyes System: Pupils equal, round, and reactive. Extraocular muscles intact. Neck: Supple, without adenopathy, No jugular venous distention. Respiratory System: Chest clear to auscultation. Cardiovascular System: Heart with regular rate and rhythm. Systolic murmur noted. GI System: Abdomen soft, nontender. Normo active bowel sounds present. Musculoskeletal System: limbs with no pedal edema. Full distal pulses. Neurological System: No discernable sensory deficit. No aphasia Results - Labs CBC & BMP: 01/07/17 04:21 01/08/17 05:28 - Impressions Assessment and Plan (1) Acute kidney injury Status: Acute Assessment and plan: Creatinine on admission was 2.0. This is improved to 1.3 with IV fluids at 75 cc/h. Continue IV fluids. Monitor renal function. Continue treatment of urinary tract infection. Current Visit: Yes (2) Dehydration Status: Acute Current Visit: Yes (3) Altered mental status Status: Acute Assessment and plan: His mental status has returned to normal. Will consult neurology and obtain records from [facility]. Cardiology following for evaluation of cardiogenic causes of syncope. Current Visit: Yes (4) History of CVA (cerebrovascular accident) Status: Chronic Current Visit: Yes (5) Syncope and collapse Status: Acute Assessment and plan: (6) Aortic stenosis, moderate Status: Chronic Current Visit: Yes (7) Urinary tract infection, POA Status: Acute Assessment and plan: Continue Rocephin. Follow-up cultures Current Visit: Yes Qualifiers: Urinary tract infection type: acute cystitis Hematuria presence: without hematuria Qualified Code(s): N30.00 - Acute cystitis without hematuria
[2017-01-08] MEDS: GABAPENTIN 300 MG CAPSULE PO SCH (21:46)
[2017-01-08] MEDS: buPROPion 75 MG TABLET PO SCH (21:46)
[2017-01-09 04:01] LABS: Basophils # 0.2 10*3/uL (0.0-0.2); Basophils % 1.8 % (0.0-0.8); Eosinophils # 0.5 10*3/uL (0.0-0.87); Eosinophils % 5.2 % (0.00-10.9); Hematocrit 43.1 VOL% (42.0-52.0); Hemoglobin 13.9 GM/DL (14.0-18.0); Immature Granulocytes % 0.2 %; Immature Granulocytes Absolute 0.02 #; Lymphocytes # 2.8 10*3/uL (1.4-4.0); Lymphocytes % 31.4 % (21.2-54.2); Mean Corpuscular HGB Conc 32.3 GM/DL (32-36); Mean Corpuscular Hemoglobin 29 PG (27-34); Mean Corpuscular Volume 90.5 FL (87-102); Mean Platelet Volume 10.8 FL (9.6-12.0); Monocytes # 1.1 10*3/uL (0.11-0.8); Monocytes % 12.3 % (1.7-12.7); Neutrophils # 4.4 10*3/uL (1.4-7.4); Neutrophils % 49.1 % (38.7-73.9); Platelet Count 191 T/CUMM (130-400); Red Blood Count 4.76 MC/CUMM (3.8-5.5); Red Cell Distribution Width 14.7 % (9.3-17.3); White Blood Count 8.9 T/CUMM (4-12)
[2017-01-09 04:24] LABS: Magnesium 1.9 MG/DL (1.8-2.4); Osmolality,Calculated 278.1 MOS/KG (273-304); Potassium 4.6 MMOL/L (3.5-5.1)
[2017-01-09] MEDS: buPROPion 75 MG TABLET PO SCH ×2 (09:25→22:00)
[2017-01-09] MEDS: POLYETHYLENE GLYCOL POWDER 17 GM PACK PO SCH (09:25)
[2017-01-09] MEDS: LISINOPRIL 5 MG TABLET PO SCH (09:25)
[2017-01-09] MEDS: LEVOTHYROXINE 75 MCG TABLET PO SCH (09:25)
[2017-01-09] MEDS: INSULIN LISPRO 100 UNIT/ML SUBCUT SCH ×6 (09:25→22:03)
[2017-01-09] MEDS: amLODIPine 5 MG TABLET PO SCH (09:25)
[2017-01-09] MEDS: ASPIRIN EC 81 MG TABLET PO SCH (09:25)
[2017-01-09] MEDS: PANTOPRAZOLE 40 MG TABLET PO SCH (09:26)
--- NOTE | 2017-01-09 13:52 | Hospitalist Progress Note ---
Hospitalist: Subjective Interval history: Patient was admitted with syncopal episode, he has significant orthostatic hypotension, several medications were held in that regard, but he is still orthostatic. Otherwise he is feeling better today. Exam - Constitutional Vitals: Period Temp Pulse Resp BP Sys/Zurita Pulse Ox Last 24 Hr 97.4 F-98.0 F 58-75 18-20 118-167/47-73 91-95 Exam: Constitutional System: No distress. No tremulousness. Head: Normocephalic, atraumatic. Ears, Nose and Throat System: No pain or tenderness. No epistaxis or discharge Eyes System: Pupils equal, round, and reactive. Extraocular muscles intact. Neck: Supple, without adenopathy, No jugular venous distention. Respiratory System: Chest clear to auscultation. Cardiovascular System: Heart with regular rate and rhythm. Systolic murmur noted. GI System: Abdomen soft, nontender. Normo active bowel sounds present. Musculoskeletal System: limbs with no pedal edema. Full distal pulses. Neurological System: No discernable sensory deficit. No aphasia Results - Labs CBC & BMP: 01/09/17 03:33 01/09/17 03:33 - Impressions Assessment and Plan (1) Acute kidney injury on chronic kidney disease stage III Status: Acute Assessment and plan: Creatinine on admission was 2.0. This is improved, appears to have chronic kidney disease at baseline Current Visit: Yes (2) Dehydration Status: Acute Current Visit: Yes This has resolved (3) Altered mental status Status: Acute Assessment and plan: His mental status has returned to normal Current Visit: Yes (4) History of CVA (cerebrovascular accident) Status: Chronic Current Visit: Yes (5) Syncope and collapse Status: Acute Assessment and plan: This likely due to orthostatic hypotension (6) Aortic stenosis, moderate Status: Chronic Current Visit: Yes (7) Urinary tract infection, POA Status: Acute Assessment and plan: Continue Rocephin. Follow-up cultures show no growth. Rocephin discontinued Current Visit: Yes (8) Severe orthostatic hypotension Status: Acute Assessment and plan: Started on midodrine 01/09, continue to monitor response and orthostatic vital signs, and adjust dose as needed Current Visit: Yes
--- NOTE | 2017-01-09 14:30 | Cardiology Progress Note ---
Assessment and Plan (1) Near syncope Status: Acute Assessment and plan: 81-year-old WM with past medical history of hypertension, diabetes, dyslipidemia , CAD with previous stenting, untreated QUINCY, CVA, and possible history of PAF. He also had moderate , preserved LV function, and has been experiencing near syncopal episode with orthostatic symptoms a little over 1 week now. Essentially, he is nonambulatory and spends majority of time lying in bed. December ASSESSMENT/PLAN: 1. NEAR SYNCOPE- No further near syncope since admission. Cardiac monitoring and has been nonrevealing. Recent CT/MRI head at [place] - records are being obtained. Place event monitor (family to bring from home) prior to discharge. 2. ORTHOSTASIS- Could certainly contribute to patient's symptoms. Medications adjusted and discontinued during office visit with Dr. Natarajan yesterday. Monitor orthostatic VS. Adjust medications accordingly. 3. HYPERTENSION- Chronic; Monitor BP and adjust med regimen as indicated. He was actually hypotensive upon presentation to the ER and required IVF bolus. 4. HYPOTHYROID- TSH 1.920 this admit. Thyroid supplement continued. 5. AORTIC STENOSIS- Known history of and remains moderate per recent echo. Could possibly be contributing to orthostatic symptoms and near syncope. 6. HISTORY OF CAD- Appears stable at this time. previous stenting of RCA in 2006. He currently takes low dose ASA. 7. PAF- Review of old records indicate possibly history of PAF but unclear. Family denies any knowledge of atrial fibrillation. He is not formally anticoagulated for stroke prevention. 8. QUINCY- Untreated. Diagnosed years ago, but was intolerant of CPAP. Family request patient to be reevaluated and treated. Sleep disorder could contribute to patient's symptoms. Sleep medicine has been consulted to review. 9. DYSLIPDIEMIA- FLP this morning overall unremarkable. Noted to have statin intolerance in the past, but home med list indicates he is prescribed atorvastatin. 10. DIABETES- Continue current plan of care. Defer primary management to attending. No significant hypo/hyperglycemia associated with episodes of syncope. 11. UTI- Started on IV antibiotic by hospital medicine. Urine culture pending. 12. PVD- Appears stable at this time. He has had previous stenting of BLEs in the past in [place], [place]. Continue BLE TEDs. His spells of loss of consciousness sound more like a seizure and syncope. However it could be bradycardia, tachycardia, orthostatic hypotension, vasovagal , psychogenic, conversion reaction, or some other cause Plan/recommendation: He has had an echo done within the last 6 months which was okay Carotid ultrasounds done in 09/[address] of the head negative Agree with repeat EEG Agree with HST-likely has sleep apnea Check orthostatic blood pressures Monitor if he has a spell-glucose, blood pressure, rhythm, pulse If he has no more spells could let him go home and reuse a 30 day event monitor which she has to try to document rhythm during symptoms We have held multiple medications which could cause orthostatic hypotension, allowing his blood pressure to run higher baseline I will follow along with you. Thank you for allowing me to participate in this patient's care December ASSESSMENT/PLAN: 1. NEAR SYNCOPE-no recurrence of syncope since admission. Cardiac monitoring nonrevealing. Recent head CT/carotid Doppler ultrasound at [place]-records reviewed and no acute source for symptoms. Place 30 day event monitor prior to discharge. 2. ORTHOSTASIS- Could certainly contribute to patient's symptoms. Medications recently adjusted and discontinued at visit with Dr. Natarajan.. Monitor orthostatic VS. Adjust medications accordingly. 3. HYPERTENSION- Chronic; Monitor BP and adjust med regimen as indicated. He was actually hypotensive upon presentation to the ER and required IVF bolus. 4. HYPOTHYROID- TSH 1.920 this admit. Thyroid supplement continued. 5. AORTIC STENOSIS- Known history of and remains moderate per recent echo. Could possibly be contributing to orthostatic symptoms and near syncope. 6. HISTORY OF CAD- Appears stable at this time. previous stenting of RCA in 2006. He currently takes low dose ASA. 7. PAF- Review of old records indicate possibly history of PAF but unclear. Family denies any knowledge of atrial fibrillation. He is not formally anticoagulated for stroke prevention. 8. QUINCY- Untreated. Diagnosed years ago, but was intolerant of CPAP. Sleep disorder could contribute to patient's symptoms. Evaluated by Dr. Montiel and had HST last night. Results pending. 9. DYSLIPDIEMIA- FLP this morning overall unremarkable. Continue current dose of atorvastatin. 10. DIABETES- Continue current plan of care. Defer primary management to attending. Glucose levels stable since admission. 11. UTI-IV antibiotics in place. Final culture was negative. 12. PVD- Appears stable at this time. He has had previous stenting of BLEs in the past in [place], [place]. Continue BLE TEDs. No more episodes of syncope He was found on HST to have significant sleep apnea. I suppose it could contribute to labile hypertension and autonomic dysfunction We'll try not to over treat his hypertension as he could have orthostatic hypotension or labile htn Checking orthostatic blood pressures Continue response to follow response to treatment of sleep apnea December ASSESSMENT/PLAN: 1. NEAR SYNCOPE-no recurrence of syncope since admission. Cardiac monitoring nonrevealing. Recent head CT/carotid Doppler ultrasound at [place]-records reviewed and no acute source for symptoms. Place 30 day event monitor prior to discharge. 2. ORTHOSTASIS- Having a moderate amount of orthostasis. 3. HYPERTENSION- Chronic; Monitor BP and adjust med regimen as indicated. He was actually hypotensive upon presentation to the ER and required IVF bolus. 4. HYPOTHYROID- TSH 1.920 this admit. Thyroid supplement continued. 5. AORTIC STENOSIS- Known history of and remains moderate per recent echo. Could possibly be contributing to orthostatic symptoms and near syncope. 6. HISTORY OF CAD- Appears stable at this time. previous stenting of RCA in 2006. He currently takes low dose ASA. 7. PAF- Review of old records indicate possibly history of PAF but unclear. Family denies any knowledge of atrial fibrillation. He is not formally anticoagulated for stroke prevention. 8. QUINCY-intolerant of CPAP in the past. HST this admit reviewed severe sleep apnea. Patient now using CPAP, auto titrating. 9. DYSLIPDIEMIA- FLP this admission unremarkable. Continue current dose of atorvastatin. 10. DIABETES- Continue current plan of care. Defer primary management to attending. Glucose levels stable. 11. UTI-IV antibiotics in place. Final culture was negative. 12. PVD- Appears stable at this time. He has had previous stenting of BLEs in the past in [place]. Continue BLE TEDs. Plan/recommendation/assessment: It seems that orthostatic hypotension may be the cause of his spells. He at least had a significant drop in his blood pressure when he stood, but no symptoms, but maybe would have symptoms if it dropped lower The SSRI, Celexa, could be contributing to her causing the orthostatic hypotension We will discontinue Celexa We will give a trial of bupropion-it does not cause orthostatic hypotension and can still treat his depression and anxiety Treatment of sleep apnea would probably help his swings in blood pressure and other problems I have encouraged him to use his CPAP and keep his appointment for follow-up 01/09/17 Orthostasis seems better, probably from stopping Celexa Can add midodrine later if needed I encouraged him to get up and get out of bed more--which would help his autonomic function and lessen orthostasis I encouraged him to continue using his sleep apnea treatment/CPAP So far the bupropion has been okay substituted for the Celexa, and it does not cause orthostatic hypotension I discussed the above with the patient and his . They voiced understanding and agree with the plan. Current Visit: Yes (2) Altered mental status Status: Acute Assessment and plan: SEE PLAN OF CARE LISTED ABOVE. Current Visit: Yes (3) Urinary tract infection Status: Acute Assessment and plan: SEE PLAN OF CARE LISTED ABOVE. Current Visit: Yes Qualifiers: Urinary tract infection type: acute cystitis Hematuria presence: without hematuria Qualified Code(s): N30.00 - Acute cystitis without hematuria (4) Aortic stenosis, moderate Status: Chronic Assessment and plan: SEE PLAN OF CARE LISTED ABOVE. Current Visit: Yes (5) Diabetes Status: Chronic Assessment and plan: SEE PLAN OF CARE LISTED ABOVE. Current Visit: Yes (6) QUINCY (obstructive sleep apnea) Status: Chronic Assessment and plan: SEE PLAN OF CARE LISTED ABOVE. Current Visit: Yes (7) History of CVA (cerebrovascular accident) Status: Chronic Assessment and plan: SEE PLAN OF CARE LISTED ABOVE. Current Visit: Yes (8) Hypothyroidism Status: Chronic Assessment and plan: SEE PLAN OF CARE LISTED ABOVE. Current Visit: Yes Cardiology - PN: Subj Interval history: No chest pain or shortness of breath. Has had no more syncopal episodes. No more significant drops of blood pressure with standing. Exam (Progress Note) - Constitutional Vitals: Period Temp Pulse Resp BP Sys/Zurita Pulse Ox Last 24 Hr 97.4 F-98.0 F 58-75 18-20 118-167/47-73 91-95 Exam: General: Present: No Apparent Distress, Other (frail; obese) HEENT: Present: PERRL, Normocephaly. Absent: Pallor Neck: Present: Midline Trachea, No JVD/HJR, No Masses, No Bruit Cardiac: Present: Reg Rate and Rhythm, Systolic Murmur Lungs: Present: Bibasilar Rales (faint), No Wheezes, No Rhonchi. Absent: Oxygen Neuro: Present: Grossly Intact. Absent: Numbness, Weakness, Resting Tremor, Essential Tremor Abdomen: Present: Soft, Active Bowel Sounds, No Masses. Absent: Ascites, Tender , Firm, Distended Skin: Present: Other (warm, dry). Absent: Rash, Suspicious Lesions, Bruising Musculoskeletal: Present: Decreased Range of Motion Extremities: Present: No Edema, Normal Upper Extr. Pulses (3+ bilaterally), Normal Lower Extr. Pulses (1-2+ bilaterally), Capillary Refill (normal) Result/EKG - Labs CBC & BMP: 01/09/17 03:33 01/09/17 03:33 Lab Results: I have reviewed the past 24 hour labs Labs: Laboratory Results - last 24 hr 01/08/17 01/08/17 01/09/17 17:37 20:34 03:33 WBC 8.9 RBC 4.76 Hgb 13.9 L Hct 43.1 MCV 90.5 MCH 29 MCHC 32.3 RDW 14.7 Plt Count 191 MPV 10.8 Neut % (Auto) 49.1 Lymph % (Auto) 31.4 [place] % (Auto) 12.3 Eos % (Auto) 5.2 Baso % (Auto) 1.8 H Neut # (Auto) 4.4 Lymph # (Auto) 2.8 [place] # (Auto) 1.1 H Eos # (Auto) 0.5 Baso # (Auto) 0.2 Immature Gran % 0.2 Nucleated RBC % 0.0 Immature Gran # 0.02 Nucleated RBCs # 0.00 Immature Plt Fraction 0.0 Sodium Potassium Chloride Carbon Dioxide Anion Gap BUN Creatinine GFR Calculation BUN/Creatinine Ratio Glucose POC Glucose 108 H 148 H Calculated Osmolality Calcium Magnesium 01/09/17 01/09/17 01/09/17 03:33 06:53 11:24 WBC RBC Hgb Hct MCV MCH MCHC RDW Plt Count MPV Neut % (Auto) Lymph % (Auto) [place] % (Auto) Eos % (Auto) Baso % (Auto) Neut # (Auto) Lymph # (Auto) [place] # (Auto) Eos # (Auto) Baso # (Auto) Immature Gran % Nucleated RBC % Immature Gran # Nucleated RBCs # Immature Plt Fraction Sodium 135 L Potassium 4.6 Chloride 100 Carbon Dioxide 28 Anion Gap 11.6 BUN 31 H Creatinine 1.30 GFR Calculation 57 BUN/Creatinine Ratio 23.00 H Glucose 136 H POC Glucose 144 H 83 Calculated Osmolality 278.1 Calcium 9.0 Magnesium 1.9 - EKG EKG results: interpreted by me
[2017-01-09] MEDS ORDERED: MIDODRINE 2.5 MG TABLET PO SCH (15:00)
[2017-01-09] MEDS: cefTRIAXone 1,000 MG in SODIUM CHLORIDE 0.9% 100 ML IV SCH (17:26)
[2017-01-09] MEDS: MIDODRINE 5 MG TABLET PO SCH ×2 (17:28→22:00)
[2017-01-09] MEDS: GABAPENTIN 300 MG CAPSULE PO SCH (22:01)
--- NOTE | 2017-01-09 22:26 | Electroencephalogram ---
HISTORY: An 81-year-old male with a history of syncopal episode. INTRODUCTION: A digital EEG was performed using the standard 10/20 system of electrode placement wit h one channel of EKG monitoring. Photic stimulation is performed. DESCRIPTION OF RECORD: The background is very disorganized, consists of 6 to 7 Hz moderate amplitude bilaterally symmetric rhythm. Photic stimulation elicits driving response at all flash frequencies. Hyperventilation was not performed. Drowsiness and sleep is not achieved. There are no focal, sha rp wave, spike or wave activity seen. Heart rate 50 beats per minute. IMPRESSION: ABNORMAL EEG DUE TO GENERALIZED SLOWING. CLINICAL CORRELATION: This record is supportive of [id number] encephalopathy, which could be s econdary to postictal state, post-hypoxic state, metabolic disorder, diffuse NEUROBIOLOGIST insult, or increased intracranial pressure. No epileptiform/seizure activity seen. Clinical correlation suggested.
[2017-01-10] MEDS: INSULIN LISPRO 100 UNIT/ML SUBCUT SCH ×6 (09:28→21:07)
[2017-01-10] MEDS: POLYETHYLENE GLYCOL POWDER 17 GM PACK PO SCH (09:34)
[2017-01-10] MEDS: MIDODRINE 5 MG TABLET PO SCH ×3 (09:36→21:05)
[2017-01-10] MEDS: ASPIRIN EC 81 MG TABLET PO SCH (09:36)
[2017-01-10] MEDS: LISINOPRIL 5 MG TABLET PO SCH (09:36)
[2017-01-10] MEDS: PANTOPRAZOLE 40 MG TABLET PO SCH (09:36)
[2017-01-10] MEDS: LEVOTHYROXINE 75 MCG TABLET PO SCH (09:36)
[2017-01-10] MEDS: amLODIPine 5 MG TABLET PO SCH (09:37)
[2017-01-10] MEDS: buPROPion 75 MG TABLET PO SCH ×2 (09:37→21:04)
[2017-01-10] MEDS: cefTRIAXone 1,000 MG in SODIUM CHLORIDE 0.9% 100 ML IV SCH (16:34)
--- NOTE | 2017-01-10 17:47 | Hospitalist Progress Note ---
Hospitalist: Subjective Interval history: Patient was admitted with syncopal episode, he has significant orthostatic hypotension, several medications were held in that regard, but he is still orthostatic. Otherwise he is feeling better today. Exam - Constitutional Vitals: Period Temp Pulse Resp BP Sys/Zurita Pulse Ox Last 24 Hr 96.4 F-98.4 F 56-77 18-18 110-165/60-71 90-97 Exam: Constitutional System: No distress. No tremulousness. Head: Normocephalic, atraumatic. Ears, Nose and Throat System: No pain or tenderness. No epistaxis or discharge Eyes System: Pupils equal, round, and reactive. Extraocular muscles intact. Neck: Supple, without adenopathy, No jugular venous distention. Respiratory System: Chest clear to auscultation. Cardiovascular System: Heart with regular rate and rhythm. Systolic murmur noted. GI System: Abdomen soft, nontender. Normo active bowel sounds present. Musculoskeletal System: limbs with no pedal edema. Full distal pulses. Neurological System: No discernable sensory deficit. No aphasia Results - Labs CBC & BMP: 01/09/17 03:33 01/09/17 03:33 - Impressions Assessment and Plan (1) Acute kidney injury on chronic kidney disease stage III Status: Acute Assessment and plan: Creatinine on admission was 2.0. This is improved, appears to have chronic kidney disease at baseline Current Visit: Yes (2) Dehydration Status: Acute Current Visit: Yes This has resolved (3) Altered mental status Status: Acute Assessment and plan: His mental status has returned to normal Current Visit: Yes (4) History of CVA (cerebrovascular accident) Status: Chronic Current Visit: Yes (5) Syncope and collapse Status: Acute Assessment and plan: This likely due to orthostatic hypotension (6) Aortic stenosis, moderate Status: Chronic Current Visit: Yes (7) Urinary tract infection, POA Status: Acute Assessment and plan: Continue Rocephin. Follow-up cultures show no growth. Rocephin discontinued Current Visit: Yes (8) Severe orthostatic hypotension Status: Acute Assessment and plan: Started on midodrine 01/09, continue to monitor response and orthostatic vital signs, and adjust dose as needed Current Visit: Yes
--- NOTE | 2017-01-10 20:58 | Cardiology Progress Note ---
Assessment and Plan (1) Near syncope Status: Acute Assessment and plan: 81-year-old WM with past medical history of hypertension, diabetes, dyslipidemia , CAD with previous stenting, untreated QUINCY, CVA, and possible history of PAF. He also had moderate , preserved LV function, and has been experiencing near syncopal episode with orthostatic symptoms a little over 1 week now. Essentially, he is nonambulatory and spends majority of time lying in bed. December ASSESSMENT/PLAN: 1. NEAR SYNCOPE- No further near syncope since admission. Cardiac monitoring and has been nonrevealing. Recent CT/MRI head at [facility] - records are being obtained. Place event monitor (family to bring from home) prior to discharge. 2. ORTHOSTASIS- Could certainly contribute to patient's symptoms. Medications adjusted and discontinued during office visit with Dr. Natarajan yesterday. Monitor orthostatic VS. Adjust medications accordingly. 3. HYPERTENSION- Chronic; Monitor BP and adjust med regimen as indicated. He was actually hypotensive upon presentation to the ER and required IVF bolus. 4. HYPOTHYROID- TSH 1.920 this admit. Thyroid supplement continued. 5. AORTIC STENOSIS- Known history of and remains moderate per recent echo. Could possibly be contributing to orthostatic symptoms and near syncope. 6. HISTORY OF CAD- Appears stable at this time. previous stenting of RCA in 2006. He currently takes low dose ASA. 7. PAF- Review of old records indicate possibly history of PAF but unclear. Family denies any knowledge of atrial fibrillation. He is not formally anticoagulated for stroke prevention. 8. QUINCY- Untreated. Diagnosed years ago, but was intolerant of CPAP. Family request patient to be reevaluated and treated. Sleep disorder could contribute to patient's symptoms. Sleep medicine has been consulted to review. 9. DYSLIPDIEMIA- FLP this morning overall unremarkable. Noted to have statin intolerance in the past, but home med list indicates he is prescribed atorvastatin. 10. DIABETES- Continue current plan of care. Defer primary management to attending. No significant hypo/hyperglycemia associated with episodes of syncope. 11. UTI- Started on IV antibiotic by hospital medicine. Urine culture pending. 12. PVD- Appears stable at this time. He has had previous stenting of BLEs in the past in [place], [place]. Continue BLE TEDs. His spells of loss of consciousness sound more like a seizure and syncope. However it could be bradycardia, tachycardia, orthostatic hypotension, vasovagal , psychogenic, conversion reaction, or some other cause Plan/recommendation: He has had an echo done within the last 6 months which was okay Carotid ultrasounds done in 09/[address] of the head negative Agree with repeat EEG Agree with HST-likely has sleep apnea Check orthostatic blood pressures Monitor if he has a spell-glucose, blood pressure, rhythm, pulse If he has no more spells could let him go home and reuse a 30 day event monitor which she has to try to document rhythm during symptoms We have held multiple medications which could cause orthostatic hypotension, allowing his blood pressure to run higher baseline I will follow along with you. Thank you for allowing me to participate in this patient's care December ASSESSMENT/PLAN: 1. NEAR SYNCOPE-no recurrence of syncope since admission. Cardiac monitoring nonrevealing. Recent head CT/carotid Doppler ultrasound at [facility]-records reviewed and no acute source for symptoms. Place 30 day event monitor prior to discharge. 2. ORTHOSTASIS- Could certainly contribute to patient's symptoms. Medications recently adjusted and discontinued at visit with Dr. Natarajan.. Monitor orthostatic VS. Adjust medications accordingly. 3. HYPERTENSION- Chronic; Monitor BP and adjust med regimen as indicated. He was actually hypotensive upon presentation to the ER and required IVF bolus. 4. HYPOTHYROID- TSH 1.920 this admit. Thyroid supplement continued. 5. AORTIC STENOSIS- Known history of and remains moderate per recent echo. Could possibly be contributing to orthostatic symptoms and near syncope. 6. HISTORY OF CAD- Appears stable at this time. previous stenting of RCA in 2006. He currently takes low dose ASA. 7. PAF- Review of old records indicate possibly history of PAF but unclear. Family denies any knowledge of atrial fibrillation. He is not formally anticoagulated for stroke prevention. 8. QUINCY- Untreated. Diagnosed years ago, but was intolerant of CPAP. Sleep disorder could contribute to patient's symptoms. Evaluated by Dr. Montiel and had HST last night. Results pending. 9. DYSLIPDIEMIA- FLP this morning overall unremarkable. Continue current dose of atorvastatin. 10. DIABETES- Continue current plan of care. Defer primary management to attending. Glucose levels stable since admission. 11. UTI-IV antibiotics in place. Final culture was negative. 12. PVD- Appears stable at this time. He has had previous stenting of BLEs in the past in [place], [place]. Continue BLE TEDs. No more episodes of syncope He was found on HST to have significant sleep apnea. I suppose it could contribute to labile hypertension and autonomic dysfunction We'll try not to over treat his hypertension as he could have orthostatic hypotension or labile htn Checking orthostatic blood pressures Continue response to follow response to treatment of sleep apnea December ASSESSMENT/PLAN: 1. NEAR SYNCOPE-no recurrence of syncope since admission. Cardiac monitoring nonrevealing. Recent head CT/carotid Doppler ultrasound at [facility]-records reviewed and no acute source for symptoms. Place 30 day event monitor prior to discharge. 2. ORTHOSTASIS- Having a moderate amount of orthostasis. 3. HYPERTENSION- Chronic; Monitor BP and adjust med regimen as indicated. He was actually hypotensive upon presentation to the ER and required IVF bolus. 4. HYPOTHYROID- TSH 1.920 this admit. Thyroid supplement continued. 5. AORTIC STENOSIS- Known history of and remains moderate per recent echo. Could possibly be contributing to orthostatic symptoms and near syncope. 6. HISTORY OF CAD- Appears stable at this time. previous stenting of RCA in 2006. He currently takes low dose ASA. 7. PAF- Review of old records indicate possibly history of PAF but unclear. Family denies any knowledge of atrial fibrillation. He is not formally anticoagulated for stroke prevention. 8. QUINCY-intolerant of CPAP in the past. HST this admit reviewed severe sleep apnea. Patient now using CPAP, auto titrating. 9. DYSLIPDIEMIA- FLP this admission unremarkable. Continue current dose of atorvastatin. 10. DIABETES- Continue current plan of care. Defer primary management to attending. Glucose levels stable. 11. UTI-IV antibiotics in place. Final culture was negative. 12. PVD- Appears stable at this time. He has had previous stenting of BLEs in the past in [place], [place]. Continue BLE TEDs. Plan/recommendation/assessment: It seems that orthostatic hypotension may be the cause of his spells. He at least had a significant drop in his blood pressure when he stood, but no symptoms, but maybe would have symptoms if it dropped lower The SSRI, Celexa, could be contributing to her causing the orthostatic hypotension We will discontinue Celexa We will give a trial of bupropion-it does not cause orthostatic hypotension and can still treat his depression and anxiety Treatment of sleep apnea would probably help his swings in blood pressure and other problems I have encouraged him to use his CPAP and keep his appointment for follow-up 01/09/17 Orthostasis seems better, probably from stopping Celexa Can add midodrine later if needed I encouraged him to get up and get out of bed more--which would help his autonomic function and lessen orthostasis I encouraged him to continue using his sleep apnea treatment/CPAP So far the bupropion has been okay substituted for the Celexa, and it does not cause orthostatic hypotension I discussed the above with the patient and his . They voiced understanding and agree with the plan. 01/10/17 Continues having orthostatic symptoms although less drop in blood pressure with standing Dr. Ryan has added midodrine-I agree We'll try off amlodipine Next may need to be off lisinopril May have to accept a slightly high blood pressure to prevent drops in blood pressure I have encouraged the patient to get up out of bed and ambulate which may help him have less orthostasis Current Visit: Yes (2) Altered mental status Status: Acute Assessment and plan: SEE PLAN OF CARE LISTED ABOVE. Current Visit: Yes (3) Urinary tract infection Status: Acute Assessment and plan: SEE PLAN OF CARE LISTED ABOVE. Current Visit: Yes Qualifiers: Urinary tract infection type: acute cystitis Hematuria presence: without hematuria Qualified Code(s): N30.00 - Acute cystitis without hematuria (4) Aortic stenosis, moderate Status: Chronic Assessment and plan: SEE PLAN OF CARE LISTED ABOVE. Current Visit: Yes (5) Diabetes Status: Chronic Assessment and plan: SEE PLAN OF CARE LISTED ABOVE. Current Visit: Yes (6) QUINCY (obstructive sleep apnea) Status: Chronic Assessment and plan: SEE PLAN OF CARE LISTED ABOVE. Current Visit: Yes (7) History of CVA (cerebrovascular accident) Status: Chronic Assessment and plan: SEE PLAN OF CARE LISTED ABOVE. Current Visit: Yes (8) Hypothyroidism Status: Chronic Assessment and plan: SEE PLAN OF CARE LISTED ABOVE. Current Visit: Yes Cardiology - PN: Subj Interval history: no chest pain or shortness of breath. He is continue to have some orthostatic symptoms Exam (Progress Note) - Constitutional Vitals: Period Temp Pulse Resp BP Sys/Zurita Pulse Ox Last 24 Hr 96.4 F-98.4 F 56-77 18-18 110-165/60-71 90-97 Exam: General: Present: No Apparent Distress, Other (frail; obese) HEENT: Present: PERRL, Normocephaly. Absent: Pallor Neck: Present: Midline Trachea, No JVD/HJR, No Masses, No Bruit Cardiac: Present: Reg Rate and Rhythm, Systolic Murmur Lungs: Present: Bibasilar Rales (faint), No Wheezes, No Rhonchi. Absent: Oxygen Neuro: Present: Grossly Intact. Absent: Numbness, Weakness, Resting Tremor, Essential Tremor Abdomen: Present: Soft, Active Bowel Sounds, No Masses. Absent: Ascites, Tender , Firm, Distended Skin: Present: Other (warm, dry). Absent: Rash, Suspicious Lesions, Bruising Musculoskeletal: Present: Decreased Range of Motion Extremities: Present: No Edema, Normal Upper Extr. Pulses (3+ bilaterally), Normal Lower Extr. Pulses (1-2+ bilaterally), Capillary Refill (normal) Result/EKG - Labs CBC & BMP: 01/09/17 03:33 01/09/17 03:33 Labs: Laboratory Results - last 24 hr 01/09/17 01/10/17 01/10/17 21:25 07:28 11:23 POC Glucose 103 130 H 149 H 01/10/17 15:41 POC Glucose 120 H
[2017-01-10] MEDS: DOCUSATE SODIUM 100 MG CAPSULE PO PRN (21:04)
[2017-01-10] MEDS: GABAPENTIN 300 MG CAPSULE PO SCH (21:04)
[2017-01-11] MEDS: LEVOTHYROXINE 75 MCG TABLET PO SCH (10:34)
[2017-01-11] MEDS: LISINOPRIL 5 MG TABLET PO SCH (10:34)
[2017-01-11] MEDS: ASPIRIN EC 81 MG TABLET PO SCH (10:35)
[2017-01-11] MEDS: MIDODRINE 5 MG TABLET PO SCH ×3 (10:35→21:00)
[2017-01-11] MEDS: PANTOPRAZOLE 40 MG TABLET PO SCH (10:35)
[2017-01-11] MEDS: buPROPion 75 MG TABLET PO SCH ×2 (10:35→21:01)
[2017-01-11] MEDS: POLYETHYLENE GLYCOL POWDER 17 GM PACK PO SCH (10:36)
[2017-01-11] MEDS: INSULIN LISPRO 100 UNIT/ML SUBCUT SCH ×5 (10:56→18:37)
[2017-01-11] MEDS: DOCUSATE SODIUM 100 MG CAPSULE PO PRN (12:07)
--- NOTE | 2017-01-11 12:13 | General Surgery Progress Note ---
Assessment and Plan - Time spent with patient Time spent with patient: Less than 30 minutes Subjective Narrative: Patient states he is feeling better and is back to baseline. Patient requesting to go home but his is reluctant to do so. She thinks swing bed would be better. Exam - Constitutional Vitals: Period Temp Pulse Resp BP Sys/Zurita Pulse Ox Last 24 Hr 96.8 F-98.4 F 52-83 18-18 110-156/40-67 92-98 Exam: 81-year-old white male, no acute distress, alert oriented Chest clear CV regular rate and rhythm Abdomen obese, nontender Extremities with no edema Results - Labs CBC & BMP: 01/09/17 03:33 01/09/17 03:33 Lab Results: I have reviewed the past 24 hour labs
--- NOTE | 2017-01-11 12:20 | Hospitalist Progress Note ---
Assessment and Plan - Time spent with patient Time spent with patient: Less than 30 minutes (1) Acute on chronic renal failure Status: Acute Assessment and plan: 81-year-old white male with history of hypertension, CVA, diabetes, and carotid endarterectomy admitted by the hospitalist service on 01/05/2017 with near syncopal episode. Patient was found to have a UTI and severe orthostatic hypotension. He is being followed by cardiology, neurology, and sleep medicine. Dr. Ryan will see and examined patient and further recommendations to follow. Acute on chronic kidney disease/dehydration--patient's creatinine on admission was 2. This is improved to his baseline at 1.2 with IV fluids. This was most likely due to dehydration. Altered mental status--this is returned to his baseline. Orthostatic hypotension--cardiology and neurology are both following. Multiple medications have been stopped and Midodrine has been started over the weekend. His orthostatic hypotension has improved and his dizziness has resolved. Cannot increase his midodrine due to bradycardia at this time. Patient does have increased debility and is being followed by PT and OT. Recommend him going to swing bed for further rehab. Patient's EEG was abnormal showing mild to moderate encephalopathy which could be secondary to postictal state, post hypoxic state, metabolic disorder, diffuse [employer] insult or increased intracranial pressure. There was no seizure activity seen. Dr. Lewis is following the patient and will await recommendations. Aortic stenosis--patient is being followed by cardiology UTI--patient had been started on antibiotics. His cultures have been negative and he has received the appropriate number of dosages and this has been stopped. He does see a urologist in [place] and he was supposed to have a procedure done but he became sick before he could have it. He wants to try to see the new urologist at [facility], Dr. Lopez. We will try to set this up as an outpatient before discharge. Patient has been getting frequent UTIs. Current Visit: Yes (2) Debility Status: Acute Current Visit: Yes (3) Dehydration Status: Acute Current Visit: Yes (4) Near syncope Status: Acute Current Visit: Yes (5) Orthostatic hypotension Status: Acute Current Visit: Yes (6) Urinary tract infection Status: Acute Current Visit: Yes Qualifiers: Urinary tract infection type: acute cystitis Hematuria presence: without hematuria Qualified Code(s): N30.00 - Acute cystitis without hematuria (7) Aortic stenosis, moderate Status: Chronic Current Visit: Yes (8) Diabetes Status: Chronic Current Visit: Yes (9) History of CVA (cerebrovascular accident) Status: Chronic Current Visit: Yes (10) QUINCY (obstructive sleep apnea) Status: Chronic Current Visit: Yes (11) Altered mental status Status: Resolved Current Visit: Yes Hospitalist: Subjective Interval history: Patient feels fine and feels that he is back to baseline along with his . He states he is weak because his knees hurt and he does not want to go to swing bed. Patient's thinks he should go to swing bed and continues to want him evaluated for this. She feels he is back to his baseline and doing much better. She states she is doing really well on the new CPAP. Exam - Constitutional Vitals: Period Temp Pulse Resp BP Sys/Zurita Pulse Ox Last 24 Hr 96.8 F-98.4 F 52-83 18-18 110-156/40-67 92-98 Exam: 81-year-old white male, no acute distress, alert and oriented Chest clear CV regular rate and rhythm Abdomen obese, nontender Extremities no edema, good distal pulses Results - Labs CBC & BMP: 01/09/17 03:33 01/09/17 03:33 Lab Results: I have reviewed the past 24 hour labs
--- NOTE | 2017-01-11 13:51 | Neurology Progress Note ---
Neurology - PN : Subjective Interval history: Patient seems to be doing much better. No new problems reported. Participating somewhat in therapy and family would like to go to swing bed close to home Exam (Progress Note) - Constitutional Vitals: Period Temp Pulse Resp BP Sys/Zurita Pulse Ox Last 24 Hr 96.8 F-98.4 F 52-83 18-18 110-156/40-67 92-98 Exam: GENERAL: Patient is in no acute distress. NECK: Neck is supple. There is no JVD. No carotid bruits present. No thyroid masses. CVS: First and second heart sounds are normal. There is no S3 present. Regular rate and rhythm. RESPIRATORY: Lungs are clear to auscultation without any rales or rhonchi. ABDOMEN: Soft and non-tender. Bowel sounds are present. There is no hepatosplenomegaly. EXT: There is no palpable edema. Peripheral pulses are present. Skin: No rashes Central Nervous system: General: Alert, awake and Oriented Speech: Fluent Comprehension: Intact and normal Facial expressions: Normal Cranial Nerves: CN1/Olfactory: Normal CN II/ Optic: Normal, Visual Ocampo unreliable CN III, and : INDU & EOMI CN V: Normal & intact CN VII: face is symmetric CNVIII: Normal CN XI/X/XI/XII: Intact and Normal Motor: Bulk and Tone is normal. Strength in the right 3-4/5 Strength in the left 3-4/5 Sensory: Unreliable Reflexes: 1+ and symmetrical Cerebellar function: Normal finger to nose and heel to velez testing. Toes: Equivocal Gait: Walking some Results - Labs CBC & BMP: 01/09/17 03:33 01/09/17 03:33 Assessment and Plan (1) Syncope and collapse Status: Acute Assessment and plan: Likely due to orthostatic hypotension She is on a small dose of midodrine. Current Visit: Yes (2) Debility Status: Acute Assessment and plan: He is very deconditioned. He states that he cannot participate in 3 of therapy. He is not a good candidate for TMR. Patient for swing bed placed Sign off please call as needed Current Visit: Yes
--- NOTE | 2017-01-11 16:50 | Cardiology Progress Note ---
Alvin Crocker Vanessa, RN, am scribing for, and in the presence of, Emmy Celestin DO 16 :50. Assessment and Plan - Time spent with patient Time spent with patient: Greater than 30 minutes (1) Orthostatic hypotension Status: Acute Assessment and plan: Patient had significant orthostatic hypotension on admit, and this has shown improvement with medication adjustment, increasing activity. Midodrine was also added over the weekend, and patient feels he is having less dizziness upon sitting up, ambulating. Will place and activate 30 day event monitor prior to discharge. Current Visit: Yes (2) Altered mental status Status: Resolved Assessment and plan: Resolved. This is most likely related to near syncope upon admission. EEG this admission supportive of mild to moderate encephalopathy felt to be possibly secondary to postictal state, post hypoxic state, metabolic disorder, diffuse SHOW CARD LETTERER insult, or increased ICP. There was no form of seizure activity seen. Current Visit: Yes (3) Aortic stenosis, moderate Status: Chronic Assessment and plan: History of moderate aortic stenosis, and is not significantly worsened per echo earlier this month. He is not having any anginal complaint or S/S heart failure. Current Visit: Yes (4) Diabetes Status: Chronic Assessment and plan: Overall, fairly stable. Continue current plan of care. Defer primary management to attending physician. Current Visit: Yes (5) QUINCY (obstructive sleep apnea) Status: Chronic Assessment and plan: Patient has been evaluated by Dr. Montiel this admission with HST revealing severe obstructive sleep apnea. He is now using CPAP nightly and tolerating well. Severe sleep apnea could also be contributing factor to orthostasis. Current Visit: Yes (6) History of CVA (cerebrovascular accident) Status: Chronic Assessment and plan: Patient is not having any neurological complaint. He has been seen by Dr. Lewis this admission. Current Visit: Yes (7) Hypothyroidism Status: Chronic Assessment and plan: TSH 1.920 on admission. Synthroid supplement continued Current Visit: Yes Cardiology - PN: Subj Interval history: FOREST AND CONSERVATION WORKER: DR. CELESTIN SUMMARY: Mr. Badillo, 81-year-old WM, with risk factors significant for: Hypertension, diabetes, dyslipidemia, sedentary lifestyle, obesity, previous history of CAD, and he is a former smoker. Past medical history significant for untreated QUINCY, CVA with previous bilateral CEAs, chronic renal insufficiency, PVD, and hypothyroidism. Also has reported history of PAF. Status post PTCA with stenting 2 of mid RCA per Dr. Lassiter in January 2007. He has also had previous stenting of bilateral lower extremities in [place]. He has a known moderate aortic stenosis, preserved LV systolic function, EF 55-60% per echo on 12/31 ([facility]-Dr. Clarke). Mr. Badillo was admitted to [facility]'s telemetry unit on 01/05 for further observation and evaluation of syncopal episodes. He had previous hospitalizations at both [facility] and [facility] in a period of 1 week for observation of this. Previous diagnostic workup had been relatively benign. However, he has had some orthostasis, and medications were recently discontinued per primary oyster culler in an effort to alleviate some of the orthostatic hypotension he has been experiencing. Admitted after a recurrence of a syncopal episode, longer than usual per family report, lasting 15-20 minutes. He was hypotensive in ER and noted to have acute kidney injury, both of which have responded well with IV fluids. Also noted to have UTI, and treatment started. Patient was given a 30 day event monitor at appointment with Dr. Celestin on 01/05, but monitor had not been attached/activated at time a prolonged episode. Cardiology was consulted for further evaluation and review of syncope. December: Mr. Badillo is sleeping soundly this morning. His is present with him at bedside. Over the weekend, he has used CPAP machine nightly, and he is tolerating it well with improved mood during the day. Review of orthostatic VS shows he is still having some orthostasis but is significantly improved. Patient was started on midodrine over the weekend. He has not had any chest pain , shortness of breath. He is increasing his activity with assistance from PT/OT , and says patient has been doing well with this. Apparently, patient has been evaluated for discharge to [facility] rehab, he is not a good candidate. Family is requesting for swing bed placement closer to home. Mr. Badillo is an 81-year-old gentleman I saw in clinic and diagnosed with orthostatic hypotension last week I instructed him to liberalize his fluids to try to get out of bed during the day which he had not been doing to wear IZZY hose and liberalize sports drinks. The patient instead of doing these things went to [employer] had another near syncopal episodes as was admitted to the hospital since that time he has been in the hospital here and evaluation going for rehabilitation. His blood pressure has been labile. They have been some adjustments to his medications and his blood pressure is more high than low but he continues to have orthostasis. He is clearly volume contracted I have encouraged the family to have him liberalize his fluids and stay out of bed. They state that he set up for almost 2 hours today. Exam (Progress Note) - Constitutional Vitals: Period Temp Pulse Resp BP Sys/Zurita Pulse Ox Last 24 Hr 96.8 F-98.4 F 52-83 18-18 110-156/40-67 92-98 Exam: General: Present: No Apparent Distress, Other (frail; obese) HEENT: Present: PERRL, Normocephaly. Absent: Pallor his membranes are very dry Neck: Present: Midline Trachea, No JVD/HJR, No Masses, No Bruit Cardiac: Present: Reg Rate and Rhythm, Systolic Murmur, mildly bradycardic. Absent: tachycardia. Lungs: Present: Overall clear to auscultation anteriorly. No Wheezes, No Rhonchi. He is not requiring supplemental oxygen. Neuro: Present: Grossly Intact. Absent: Numbness, Weakness, Resting Tremor, Essential Tremor Abdomen: Present: Soft, Active Bowel Sounds, No Masses. Absent: Ascites, Tender , Firm, Distended Skin: Present: Other (warm, dry). Absent: Rash, Suspicious Lesions, Bruising Musculoskeletal: Present: Decreased Range of Motion Extremities: Present: No Edema, Normal Upper Extr. Pulses (3+ bilaterally), Normal Lower Extr. Pulses (1-2+ bilaterally), Capillary Refill (normal) He does not have his IZZY hose on. Result/EKG - Labs CBC & BMP: 01/09/17 03:33 01/09/17 03:33 Lab Results: I have reviewed the past 24 hour labs Labs: Laboratory Results - last 24 hr 01/10/17 01/10/17 01/10/17 11:23 15:41 20:22 POC Glucose 149 H 120 H 175 H 01/11/17 07:44 POC Glucose 122 H - EKG EKG results: interpreted by me, no acute changes EKG shows: sinus rhythm I, Emmy Celestin, , personally performed the services described in this documentation, ascribed by Ruthie Esquivel RN in my presence, and it is both accurate and complete 650 .
[2017-01-11] MEDS: cefTRIAXone 1,000 MG in SODIUM CHLORIDE 0.9% 100 ML IV SCH (18:01)
[2017-01-11] MEDS: GABAPENTIN 300 MG CAPSULE PO SCH (21:00)
[2017-01-12] MEDS: hydrALAZINE 20 MG/1 ML VIAL IV PRN (01:04)
[2017-01-12] MEDS: INSULIN LISPRO 100 UNIT/ML SUBCUT SCH ×4 (01:27→13:58)
[2017-01-12 05:11] LABS: Basophils # 0.1 10*3/uL (0.0-0.2); Basophils % 1.5 % (0.0-0.8); Eosinophils # 0.6 10*3/uL (0.0-0.87); Hematocrit 41.8 VOL% (42.0-52.0); Hemoglobin 13.8 GM/DL (14.0-18.0); Immature Granulocytes % 0.5 %; Immature Granulocytes Absolute 0.05 #; Lymphocytes # 2.6 10*3/uL (1.4-4.0); Lymphocytes % 27.6 % (21.2-54.2); Mean Corpuscular Hemoglobin 30 PG (27-34); Mean Corpuscular Volume 90.3 FL (87-102); Mean Platelet Volume 11.7 FL (9.6-12.0); Monocytes # 1.1 10*3/uL (0.11-0.8); Monocytes % 11.4 % (1.7-12.7); Platelet Count 202 T/CUMM (130-400); Red Blood Count 4.63 MC/CUMM (3.8-5.5); Red Cell Distribution Width 14.7 % (9.3-17.3); White Blood Count 9.4 T/CUMM (4-12)
[2017-01-12 05:38] LABS: Calcium 9.3 MG/DL (8.5-10.1); Magnesium 1.9 MG/DL (1.8-2.4); Osmolality,Calculated 278.8 MOS/KG (273-304); Potassium 5.1 MMOL/L (3.5-5.1)
[2017-01-12] MEDS: PANTOPRAZOLE 40 MG TABLET PO SCH (09:32)
[2017-01-12] MEDS: MIDODRINE 5 MG TABLET PO SCH (09:32)
[2017-01-12] MEDS: ASPIRIN EC 81 MG TABLET PO SCH (09:32)
[2017-01-12] MEDS: LEVOTHYROXINE 75 MCG TABLET PO SCH (09:32)
[2017-01-12] MEDS: buPROPion 75 MG TABLET PO SCH (09:32)
[2017-01-12] MEDS: POLYETHYLENE GLYCOL POWDER 17 GM PACK PO SCH (09:33)
[2017-01-12] MEDS: LISINOPRIL 5 MG TABLET PO SCH (09:33)
--- NOTE | 2017-01-12 11:07 | Discharge Summary ---
<Sabine Hoff - Last Filed: 01/12/17 11:13> Hospital Course - Hospital Course Hospital Course: 81-year-old white male with history of hypertension, CVA, diabetes, aortic stenosis, history of CVA, obstructive sleep apnea and carotid endarterectomy admitted by the hospitalist service on 01/05/2017 with near syncopal episode. Patient was found to have a UTI and severe orthostatic hypotension. Cardiology was consulted and adjusted several of his medications. He is also been started on midodrine and his orthostatic hypotension has greatly improved. Patient's dizziness has resolved. Patient has received his full course of antibiotics for his UTI. Neurology also followed the patient during his hospital stay. Patient is very deconditioned and is being transferred to swing bed for further rehabilitation. Patient will need to follow-up with Dr. Desai in his office. They are also putting an event monitor on the patient upon discharge. Patient is requesting a local urologist so we will set up an appointment in [address] Montiel from sleep medicine adjusted the patient's sleep mask and he will need to follow-up in clinic as well with him. Complete discharge instructions were given to the patient and his . Care coordination, chart review, and completed discharge paperwork took approximately 43 minutes. I also saw and examined Mr Badillo independently from Sabine FARRIS and agree with her summary. He is feeling good today and his event monitor has been placed and activated by the cardiology team. He will go to swing bed at [facility] today and follow up with DR Natarajan, DR Lopez, and Dr Montiel. - Time spent with patient Time with patient DS: Greater than 30 minutes Diagnosis - Discharge Diagnosis (1) Acute on chronic renal failure Status: Resolved (2) Debility Status: Acute (3) Dehydration Status: Resolved (4) Near syncope Status: Resolved (5) Orthostatic hypotension Status: Resolved (6) Urinary tract infection Status: Resolved (7) Aortic stenosis, moderate Status: Chronic (8) Diabetes Status: Chronic (9) History of CVA (cerebrovascular accident) Status: Chronic (10) QUINCY (obstructive sleep apnea) Status: Chronic (11) Altered mental status Status: Resolved Specialty Discharge - Follow Up or Referrals Follow up with: Pankaj Lopez MD [Physician] - 02/16/17 9:00 am (needs a local urologist 02/16/17 at 9:00 am) Caridad Montiel MD [Physician] - 02/04/17 7:15 pm (formal CPAP retitration) Emmy Natarajan DO [Physician] - 02/05/17 9:10 am (with event recorder 1 month) Discharge Plan - Discharge Data Disposition: Disch/Xfer to Snf Contact your physician if you experience:: fever over 101 - Discharge Medications New Acetaminophen Tab [Tylenol Tab] 650 mg PO Q4H PRN tablet PRN Reason: Fever, Headache, Mild Pain buPROPion [Wellbutrin] 75 mg PO BID tablet Docusate Sodium Cap [Colace Cap] 100 mg PO BID PRN capsule PRN Reason: Constipation Gabapentin Cap/Tab [Neurontin Cap/Tab] 600 mg PO BEDTIME capsule Glucagon 1 mg IM PRN PRN vial PRN Reason: Hypoglycemia w/o IV access HYDROcodone/ACETAMIN 5-325 [[place] 5-325] 1 tablet PO Q4H PRN tablet PRN Reason: Pain Mild (1-3) Insulin Lispro [HumaLOG] See Protocol SUBCUT ACHS unit Insulin Lispro [HumaLOG] 14 unit SUBCUT AC BREAKFAST unit Midodrine [Proamatine] 2.5 mg PO TID tablet Polyethylene Glycol Powder [Miralax] 17 gm PO DAILY Aspirin EC Tab 81 mg PO DAILY tablet Insulin Lispro [HumaLOG] 12 unit SUBCUT AC SUPPER unit Continue Atorvastatin [Lipitor] 20 mg PO DAILY PRN PRN Reason: Dizziness Lisinopril 5 mg PO DAILY Levothyroxine Sodium 75 mcg PO DAILY Anastrozole 1 mg PO DIRECTED Discontinued Gabapentin [Gabapentin] 300 mg PO BID Nitroglycerin [Nitroglycerin SL Tab] 0.4 mg SL DIRECTED Meclizine [Antivert] 25 mg PO TID Tamsulosin [Flomax] 0.4 mg PO DAILY Citalopram [CeleXA] 10 mg PO DAILY Carvedilol [Carvedilol] 3.25 mg PO BID Aspirin [Ecotrin] 81 mg PO DAILY amLODIPine [Norvasc] 5 mg PO DAILY Gabapentin 600 mg PO BEDTIME Insulin Degludec [Tresiba Flextouch U-200] 60 units SUBCUT AC BREAKFAST Insulin Aspart [NovoLOG FlexPen] 12 units SUBCUT AC SUPPER Insulin Aspart [NovoLOG FlexPen] 14 units SUBCUT AC BREAKFAST Furosemide [Furosemide] 20 mg PO DAILY - Follow Up or Referral Follow Up: Pankaj Lopez MD [Physician] - 02/16/17 9:00 am (needs a local urologist 02/16/17 at 9:00 am) Caridad Montiel MD [Physician] - 02/04/17 7:15 pm (formal CPAP retitration) Emmy Natarajan DO [Physician] - 02/05/17 9:10 am (with event recorder 1 month) - Forms/Instructions Exam - Constitutional Vitals: Period Temp Pulse Resp BP Sys/Zurita Pulse Ox Last 24 Hr 97.0 F-98 F 3-64 16-20 127-194/59-80 93-98 Exam: 81-year-old white male, no acute distress, alert and oriented Chest clear CV regular rate and rhythm Abdomen obese, nontender Extremities no edema Discharge Results Labs on day of discharge: Labs from last 24 hours 01/12/17 01/12/17 01/12/17 07:30 04:03 04:03 WBC 9.4 RBC 4.63 Hgb 13.8 L Hct 41.8 L MCV 90.3 MCH 30 MCHC 33.0 RDW 14.7 Plt Count 202 MPV 11.7 Neut % (Auto) 53.0 Lymph % (Auto) 27.6 [place] % (Auto) 11.4 Eos % (Auto) 6.0 Baso % (Auto) 1.5 H Neut # (Auto) 5.0 Lymph # (Auto) 2.6 [place] # (Auto) 1.1 H Eos # (Auto) 0.6 Baso # (Auto) 0.1 Immature Gran % 0.5 Nucleated RBC % 0.0 Immature Gran # 0.05 Nucleated RBCs # 0.00 Immature Plt Fraction 0.0 Sodium 137 Potassium 5.1 Chloride 99 Carbon Dioxide 31 Anion Gap 12.1 BUN 25 H Creatinine 1.30 GFR Calculation 63 BUN/Creatinine Ratio 19.00 Glucose 138 H POC Glucose 130 H Calculated Osmolality 278.8 Calcium 9.3 Magnesium 1.9 01/11/17 01/11/17 01/11/17 20:19 15:56 11:21 WBC RBC Hgb Hct MCV MCH MCHC RDW Plt Count MPV Neut % (Auto) Lymph % (Auto) [place] % (Auto) Eos % (Auto) Baso % (Auto) Neut # (Auto) Lymph # (Auto) [place] # (Auto) Eos # (Auto) Baso # (Auto) Immature Gran % Nucleated RBC % Immature Gran # Nucleated RBCs # Immature Plt Fraction Sodium Potassium Chloride Carbon Dioxide Anion Gap BUN Creatinine GFR Calculation BUN/Creatinine Ratio Glucose POC Glucose 131 H 152 H 158 H Calculated Osmolality Calcium Magnesium DS: Provider Date of admission: 01/06/17 14:34 Primary care physician: . No PCP Attending physician on admission: Dottie Badillo MD Consults: 01/05/17 16:21 Consult to Physician [CONS] Routine Comment: reoccurring syncope, neurogenic? Consulting Provider: Graeme Lewis Consulting Provider Notified: Yes When should Consulting Provider be notified: Now Person Notified: DR. CUELLAR Date Notified: 01/05/17 Time Notified: 17:31 Consult Notification Comment: DR. LEWIS REQUESTS OFFICE TO BE NOTIFIED IN THE AM OF CONSULT. Spoke with Cass, 01/06/17 8:40 A.M 01/05/17 16:23 Consult to Physician [CONS] Routine Comment: quincy severe Consulting Provider: Caridad Montiel Consult Notification Comment: Consult sent to Sleep center 01/05/17 16:39 Consult to Physician [CONS] Routine Comment: Consulting Provider: Froilan Anthony Person Notified: Jena Date Notified: 01/06/17 Time Notified: 07:45 01/06/17 07:50 Consult to Sleep Center [CONS] Routine Reason for Sleep Center: Sleep Center Physician Consult Comment: QUINCY Severe 01/06/17 10:35 PT [Consult to Physical Therapy] [CONS] Routine Reason for Physical Therapy: Evaluate and Treat 01/06/17 10:36 Consult to Occupational Therapy [CONS] Routine Reason for Occupational Therapy: Evaluate and Treat Discharging clinician: KALEIGH Fuller Expected date of discharge: 01/12/17 <Naa Velez - Last Filed: 01/12/17 14:17> Diagnosis - Discharge Diagnosis (1) Diabetes Status: Chronic (2) History of CVA (cerebrovascular accident) Status: Chronic (3) Orthostatic hypotension Status: Resolved (4) Syncope and collapse Status: Acute (5) Aortic stenosis, moderate Status: Chronic (6) QUINCY (obstructive sleep apnea) Status: Chronic (7) Acute on chronic renal failure Status: Resolved Discharge Plan - Discharge Data Condition at Discharge: Stable Discharge Diet: diabetic diet, heart healthy Activity: as per physical therapy
[2017-01-12 11:59] VITALS: BP 143/63
--- NOTE | 2017-01-12 13:02 | Cardiology Progress Note ---
Alvin Crocker Vanessa, RN, am scribing for, and in the presence of, Rosa IselaBoothDO 13 :02. Assessment and Plan - Time spent with patient Time spent with patient: Greater than 30 minutes (1) Orthostatic hypotension Status: Resolved Assessment and plan: Significant orthostatic hypotension much improved. Continue low dose midodrine. Placing 30 day event monitor today prior to discharge to swing bed later today. Current Visit: Yes (2) Altered mental status Status: Resolved Assessment and plan: Resolved. This is most likely related to near syncope upon admission. EEG this admission supportive of mild to moderate encephalopathy felt to be possibly secondary to postictal state, post hypoxic state, metabolic disorder, diffuse ALTERATIONS MANAGER insult, or increased ICP. There was no form of seizure activity seen. Current Visit: Yes (3) Aortic stenosis, moderate Status: Chronic Assessment and plan: History of moderate aortic stenosis, and is not significantly worsened per echo earlier this month. No anginal complaint or S/S heart failure. Current Visit: Yes (4) Diabetes Status: Chronic Assessment and plan: Overall, fairly stable. Continue current plan of care. Defer primary management to attending physician. Current Visit: Yes (5) QUINCY (obstructive sleep apnea) Status: Chronic Assessment and plan: Sleep medicine evaluation this admission with diagnosis of severe obstructive sleep apnea. CPAP has been added and titrated. Continue at discharge. Current Visit: Yes (6) History of CVA (cerebrovascular accident) Status: Chronic Assessment and plan: Appears stable at this time. Patient has been evaluated by Dr. Lewis this admission. Current Visit: Yes (7) Hypothyroidism Status: Chronic Assessment and plan: TSH 1.920 on admission. Synthroid continued. Current Visit: Yes Cardiology - PN: Subj Interval history: ALLERGIST: DR. CELESTIN SUMMARY: Mr. Badillo, 81-year-old WM, with risk factors significant for: Hypertension, diabetes, dyslipidemia, sedentary lifestyle, obesity, previous history of CAD, and he is a former smoker. Past medical history significant for untreated QUINCY, CVA with previous bilateral CEAs, chronic renal insufficiency, PVD, and hypothyroidism. Also has reported history of PAF. Status post PTCA with stenting 2 of mid RCA per Dr. Lassiter in January 2007. He has also had previous stenting of bilateral lower extremities in [place]. He has a known moderate aortic stenosis, preserved LV systolic function, EF 55-60% per echo on 12/31 ([facility]-Dr. Clarke). Mr. Badillo was admitted to [place]'s telemetry unit on 01/05 for further observation and evaluation of syncopal episodes. He had previous hospitalizations at both [facility] and [facility] in a period of 1 week for observation of this. Previous diagnostic workup had been relatively benign. However, he has had some orthostasis, and medications were recently discontinued per primary portable machine sander in an effort to alleviate some of the orthostatic hypotension he has been experiencing. Admitted after a recurrence of a syncopal episode, longer than usual per family report, lasting 15-20 minutes. He was hypotensive in ER and noted to have acute kidney injury, both of which have responded well with IV fluids. He has also received treatment for UTI this admission. Patient was given a 30 day event monitor at appointment with Dr. Celestin on 01/05, but monitor had not been attached/ activated at time a prolonged episode. Cardiology was consulted for further evaluation and review of syncope. Since admission, medications have been adjusted and low-dose midodrine has been started with improvement in orthostatic hypotension. December: Patient doing well this morning. He is awake, alert, and pleasant. Orthostatic vitals reviewed and orthostasis is improved. BP 140/80. Sinus rhythm with heart rate in the 60s without disturbance. He does have some transient, mild bradycardia with heart rate in the upper 50s. He is not having any chest pain or shortness of breath. From a cardiac standpoint, he is stable for discharge [facility] swing bed as requested per family to be closer to home. Patient had a follow-up visit scheduled with Dr. Celestin prior to admission, scheduled for February 16, 2017, at 9:20 AM. He can keep this appointment. Event monitor is being placed and activated this morning prior to discharge to swing bed. I saw and examined Mr. Badillo is he was getting ready to go to swing bed at [facility]. I again emphasized orthostatic precautions and safety issues with the patient and his . He is scheduled to follow-up with me in 1 month. We will continue monitoring him with the event monitor for dysrhythmias. I think it is very clear what is happening but we will make sure no dysrhythmia has occurred. Exam (Progress Note) - Constitutional Vitals: Period Temp Pulse Resp BP Sys/Zurita Pulse Ox Last 24 Hr 97.0 F-98 F 3-64 16-20 127-194/59-80 93-98 Exam: General: Present: No Apparent Distress, Other (frail; obese) HEENT: Present: PERRL, Normocephaly. Absent: Pallor. His membranes are less dry today Neck: Present: Midline Trachea, No JVD/HJR, No Masses, No Bruit Cardiac: Present: Reg Rate and Rhythm, Systolic Murmur, mildly bradycardic. Absent: tachycardia. Lungs: Present: Overall clear to auscultation anteriorly. No Wheezes, No Rhonchi. He is not requiring supplemental oxygen. Neuro: Present: Grossly Intact. Absent: Numbness, Weakness, Resting Tremor, Essential Tremor Abdomen: Present: Soft, Active Bowel Sounds, No Masses. Absent: Ascites, Tender , Firm, Distended Skin: Present: Other (warm, dry). Absent: Rash, Suspicious Lesions, Bruising Musculoskeletal: Present: Decreased Range of Motion Extremities: Present: No Edema, Normal Upper Extr. Pulses (3+ bilaterally), Normal Lower Extr. Pulses (1-2+ bilaterally), Capillary Refill (normal) He does not have his IZZY hose on. Result/EKG - Labs CBC & BMP: 01/12/17 04:03 01/12/17 04:03 Lab Results: I have reviewed the past 24 hour labs Labs: Laboratory Results - last 24 hr 01/11/17 01/11/17 01/11/17 11:21 15:56 20:19 WBC RBC Hgb Hct MCV MCH MCHC RDW Plt Count MPV Neut % (Auto) Lymph % (Auto) [place] % (Auto) Eos % (Auto) Baso % (Auto) Neut # (Auto) Lymph # (Auto) [place] # (Auto) Eos # (Auto) Baso # (Auto) Immature Gran % Nucleated RBC % Immature Gran # Nucleated RBCs # Immature Plt Fraction Sodium Potassium Chloride Carbon Dioxide Anion Gap BUN Creatinine GFR Calculation BUN/Creatinine Ratio Glucose POC Glucose 158 H 152 H 131 H Calculated Osmolality Calcium Magnesium 01/12/17 01/12/17 01/12/17 04:03 04:03 07:30 WBC 9.4 RBC 4.63 Hgb 13.8 L Hct 41.8 L MCV 90.3 MCH 30 MCHC 33.0 RDW 14.7 Plt Count 202 MPV 11.7 Neut % (Auto) 53.0 Lymph % (Auto) 27.6 [place] % (Auto) 11.4 Eos % (Auto) 6.0 Baso % (Auto) 1.5 H Neut # (Auto) 5.0 Lymph # (Auto) 2.6 [place] # (Auto) 1.1 H Eos # (Auto) 0.6 Baso # (Auto) 0.1 Immature Gran % 0.5 Nucleated RBC % 0.0 Immature Gran # 0.05 Nucleated RBCs # 0.00 Immature Plt Fraction 0.0 Sodium 137 Potassium 5.1 Chloride 99 Carbon Dioxide 31 Anion Gap 12.1 BUN 25 H Creatinine 1.30 GFR Calculation 63 BUN/Creatinine Ratio 19.00 Glucose 138 H POC Glucose 130 H Calculated Osmolality 278.8 Calcium 9.3 Magnesium 1.9 - EKG EKG results: interpreted by me, no acute changes EKG shows: sinus rhythm (Heart rate averaging 60s. Transient bradycardia upper 50s.) Specialty Discharge - Follow Up or Referrals Follow up with: Pankaj Lopez MD [Physician] - 1 Month (needs a local urologist) Caridad Montiel MD [Physician] - 02/04/17 7:15 pm (formal CPAP retitration) Emmy Celestin DO [Physician] - 02/05/17 9:10 am (with event recorder 1 month) I, Emmy Celestin DO, personally performed the services described in this documentation, ascribed by Ruthie Esquivel RN in my presence, and it is both accurate and complete .
--- NOTE | 2017-01-12 13:34 | Sleep Medicine Progress Note ---
Assessment and Plan (1) QUINCY (obstructive sleep apnea) Status: Chronic Assessment and plan: Patient will be set up with auto titration CPAP and will need follow-up in the sleep clinic. Current Visit: Yes (2) Diabetes Status: Chronic Current Visit: Yes Sleep Medicine Subjective Interval history: Patient was on auto titration BiPAP last night and did not tolerate it as well as he did auto titration CPAP. He still had an elevated AHI of 15 despite BiPAP. We will prescribe auto titration CPAP for him. He is being discharged today and we have contacted [facility] to set him up with his CPAP device. Exam (Progress Note) - Constitutional Vitals: Period Temp Pulse Resp BP Sys/Zurita Pulse Ox Last 24 Hr 97 F-98 F 3-64 16-20 127-194/59-80 94-98 Exam: Patient was alert and responsive and answers questions appropriately. He is undergoing EEG at present during this exam. Results - Labs CBC & BMP: 01/12/17 04:03 01/12/17 04:03 Lab Results: I have reviewed the past 24 hour labs Specialty Discharge - Follow Up or Referrals Follow up with: Pankaj Lopez MD [Physician] - 02/16/17 9:00 am (needs a local urologist 02/16/17 at 9:00 am) Caridad Montiel MD [Physician] - 02/04/17 7:15 pm (formal CPAP retitration) Emmy Natarajan DO [Physician] - 02/05/17 9:10 am (with event recorder 1 month)
== END 2017-01-12 13:49 | disposition swing bed (61) | DRG 683 ==
LOC: N.ED 13:01 → N.EDINP 13:01 → SUATTDRO 14:48 → N.EDINP 16:20 → N.TELEN 16:24 → SUATTDRO 01-06 14:34
PROVIDERS: ADMIT Internal Medicine; ATTEND Internal Medicine

== ENCOUNTER 2017-01-30 19:37 | Inpatient (IN) ==
--- NOTE | 2017-01-30 20:42 | Emergency Department Note ---
Arrival - Arrival Chief Complaint: Non-Specific Stated Complaint: AMS ED Nursing Triage Note: C/C per EMS family states pt had an episode of confusion and BP of 70/30 at home. Pt was discharged from [facility] ([facility]) yesterday for strength building in legs. Pt is wearing a Halter monitor for Dr Natarajan. Pt is AAOx3, No complaints from pt. Pt states "he is ready to go home" Mode of Arrival: Stretcher Time Seen by Provider: 01/30/17 20:26 - History of Present Illness HPI Narrative: This is an 81-year-old white male with a history of previous stroke, peripheral neuropathy coronary artery disease status post 3 stents, hyperlipidemia, hypertension who is been taken off all of his blood pressure medications, peripheral vascular disease with stents in his leg, bilateral carotid endarterectomy, obstructive sleep apnea on CPAP, chronic renal insufficiency, type 2 diabetes, hypothyroidism who presents to the emergency department for the fifth episode of syncope associated with hypotension with a blood pressure of 70/30 which first started in December 28, 2016. The patient has been admitted to the hospital at [facility], [facility], and is seen to bioinformatics programmer and to neurologist. The specific diagnosis has not yet been determined. There was Some consideration to possible seizure disorder. A cardiac etiology is also been entertained. The patient was discharged from a swing bed at [place] yesterday where they placed a Holter monitor. He was home for less than 24 hours when he had another episode where he became confused with a blood pressure of 70/30 lasting for approximately 15 minutes from which he slowly improved. The event that occurred today was recorded on his Holter monitor which can be interrogated. The patient appears to have returned to his baseline. Allergies/Adverse Reactions: Allergies Allergy/AdvReac Type Severity Reaction Status Date / Time No Known Allergies Allergy Verified 01/30/17 19:55 Home Medications: Home Medications Medication Instructions Recorded Confirmed Type Anastrozole 1 mg PO DIRECTED 01/05/17 01/05/17 History Atorvastatin [Lipitor] 20 mg PO DAILY PRN 01/05/17 01/05/17 History Levothyroxine Sodium 75 mcg PO DAILY 01/05/17 01/05/17 History Lisinopril 5 mg PO DAILY 01/05/17 01/05/17 History Acetaminophen Tab [Tylenol Tab] 650 mg PO Q4H PRN tablet 01/12/17 Rx Aspirin EC Tab 81 mg PO DAILY tablet 01/12/17 Rx Docusate Sodium Cap [Colace Cap] 100 mg PO BID PRN capsule 01/12/17 Rx Gabapentin Cap/Tab [Neurontin 600 mg PO BEDTIME capsule 01/12/17 Rx Cap/Tab] Glucagon 1 mg IM PRN PRN vial 01/12/17 Rx HYDROcodone/ACETAMIN 5-325 [[place] 1 tablet PO Q4H PRN tablet 01/12/17 Rx 5-325] Insulin Lispro [HumaLOG] 12 unit SUBCUT AC SUPPER unit 01/12/17 Rx Insulin Lispro [HumaLOG] 14 unit SUBCUT AC BREAKFAST unit 01/12/17 Rx Insulin Lispro [HumaLOG] See Protocol SUBCUT ACHS unit 01/12/17 Rx Midodrine [Proamatine] 2.5 mg PO TID tablet 01/12/17 Rx Polyethylene Glycol Powder 17 gm PO DAILY 01/12/17 Rx [Miralax] buPROPion [Wellbutrin] 75 mg PO BID tablet 01/12/17 Rx Review of System - Review of System Constitutional: Absent: fever, night sweats Eyes: Absent: redness, vision change Head/Ears/Nose/Throat: Absent: epistaxis, nasal drainage Respiratory: Absent: respiratory distress Cardiovascular: Absent: dyspnea on exertion, edema Gastrointestinal: Absent: diarrhea, constipation, melena Genitourinary male: Absent: dysuria, hematuria, discharge Musculoskeletal: Absent: joint swelling, lower back pain Skin: Absent: change in color, change in hair/nails, pruritus Neurological: Present: confusion. Absent: numbness, paresthesias Psychiatric: Absent: anxiety, depression Endocrine: Absent: heat intolerance, polydipsia, polyuria Hematological/Lymphatic: Absent: easy bruising Allergic/Immunologic: Absent: urticaria, itchy eyes Medical,Surgical,& Family Hx - Medical History Cardio: History of: CAD, Hypertension, PVD, Valvular Heart Disease (aortic stenosis) No history of: [place], Pacemaker Neurology: History of: Cerebrovascular Accident, Peripheral Neuropathy No history of: Seizures, TIA Endocrine: History of: Diabetes Mellitus (IDDM), Diabetes Mellitus (NIDDM), Dyslipidemia, Thyroid Disorder Respiratory: History of: Obstructive Sleep Apnea No history of: Pulmonary Hypertension (Untreated) Renal: History of: Renal Problems (Chronic renal insufficiency) Genitourinary: History of: Prostate Problems Gastrointestinal: History of: GERD No history of: Gastrointestinal Bleed Musculoskeletal: History of: Musculoskeletal Problems (Osteoarthritis) Other: No history of: Cancer - Surgical History Cardiac Surgeries: Sugical HX of: Cardiac Catheterization (Mid RCA stent 2 in 2006), Carotid Endarterectomy Neurologic Surgeries: Patient denies: Neurologic Surgery HEENT Surgeries: Surgical HX of: Carotid Endarterectomy Orthopedic Surgeries: Patient denies;: Implanted Devices - Family History Family History: Reports;: Family Diabetes, Family Hypertension Denies;: Family Heart Disease - Social History Smoking Status: Former smoker Frequency of Alcohol Use: None Type of Drug Use: None Exam Vital Signs: Vital Signs Temperature 97.8 F 01/30/17 19:38 Pulse Rate 77 01/30/17 19:38 Respiratory Rate 16 01/30/17 19:38 Blood Pressure 115/64 01/30/17 19:38 O2 Sat by Pulse Oximetry 95 01/30/17 19:38 - General Exam limited due to: ALOC - Head Head exam: Present: atraumatic, normocephalic - Eye Eye exam: Present: normal appearance, PERRL, EOMI - ENT ENT exam: Present: normal exam, normal oropharynx - Neck Neck exam: Present: normal inspection, full ROM - Chest Chest inspection: Present: normal inspection, symmetric chest wall rise - Respiratory Respiratory exam: Present: normal lung sounds bilaterally - Cardiovascular Cardiovascular exam: Present: regular rate, normal rhythm - Abdominal Exam Abdominal exam: Present: soft, normal bowel sounds - Extremities Exam Extremities exam: Present: normal inspection, full ROM - Back Exam Back exam: Present: normal inspection, full ROM - Neurological Exam Neurological exam: Present: alert, oriented X3, CN II-XII intact - Psychiatric Psychiatric exam: Present: normal affect, normal mood - Skin Skin exam: Present: warm, dry Course Course Narrative: The laboratory tests are essentially normal as is the physical examination and vital signs with the exception of the troponin which is elevated. This could be explained on the basis of chronic renal insufficiency but it seems prudent that the patient should be admitted to the hospital to run serial cardiac enzymes and have the neurologist see the patient and interrogate the Holter monitor which the patient was wearing at the time of the event. The case was discussed with the hospitalist who agreed to admit the patient to the hospital. Results - Labs CBC & BMP: 01/30/17 21:00 01/30/17 21:00 Disposition Clinical Impression: Near syncope, Elevated troponin Disposition: Still a Patient Additional Instructions: The patient's troponin is slightly elevated. This could possibly be explained on the basis of the chronic renal insufficiency however a cardiac event is not entirely ruled out. The laboratory tests are essentially normal. The case was discussed with the hospitalist who agreed to admit the patient for interrogation of the Holter monitor and to run serial cardiac enzymes with appropriate cardiology and neurology consultations as needed.
--- NOTE | 2017-01-30 20:45 | EKG Report ---
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
[2017-01-30 21:07] LABS: Basophils # 0.2 10*3/uL (0.0-0.2); Basophils % 1.6 % (0.0-0.8); Eosinophils # 0.3 10*3/uL (0.0-0.87); Eosinophils % 3.5 % (0.00-10.9); Hematocrit 43.3 VOL% (42.0-52.0); Immature Granulocytes % 0.8 %; Immature Granulocytes Absolute 0.07 #; Lymphocytes # 2.3 10*3/uL (1.4-4.0); Lymphocytes % 24.7 % (21.2-54.2); Mean Corpuscular HGB Conc 32.3 GM/DL (32-36); Mean Corpuscular Hemoglobin 30 PG (27-34); Mean Corpuscular Volume 91.5 FL (87-102); Mean Platelet Volume 11.3 FL (9.6-12.0); Monocytes # 1.1 10*3/uL (0.11-0.8); Monocytes % 12.1 % (1.7-12.7); Neutrophils # 5.3 10*3/uL (1.4-7.4); Neutrophils % 57.3 % (38.7-73.9); Platelet Count 191 T/CUMM (130-400); Red Blood Count 4.73 MC/CUMM (3.8-5.5); Red Cell Distribution Width 14.6 % (9.3-17.3); White Blood Count 9.2 T/CUMM (4-12)
[2017-01-30 21:25] LABS: Alanine Aminotransferase 30 U/L (16-61); Albumin 3.3 G/DL (3.4-5.0); Alkaline Phosphatase 72 U/L (45-117); Aspartate Amino Transferase 31 U/L (0-37); Bilirubin,Total < 0.39 MG/DL (0.2-1.0); Blood Urea Nitrogen 30 MG/DL (7-18); Calcium 9.3 MG/DL (8.5-10.1); Glucose 145 MG/DL (74-106); Potassium 5.1 MMOL/L (3.5-5.1); Sodium 136 MMOL/L (136-145); Total Protein 6.9 G/DL (6.4-8.3)
[2017-01-30 23:49] LABS: Apearance,Urine Slightly Hazy (Clear); Bacteria,Urine Occasional /HPF (Few); Bilirubin,Urine Negative (Negative); Blood, Urine Negative (Negative); Glucose,Urine (UA) Negative (Negative); Hyaline Casts,Urine 13 /LPF (0-3); Ketones,Urine Negative (Negative); Mucus,Urine Occasional /LPF (Occasional); Nitrite,Urine Negative (Negative); Protein,Urine Negative; RBC,Urine 2 /HPF (0-4); Renal Epithelial Cells,Urine Occasional /HPF (<1); Squamous Epithelial Cell,Urine Occasional /HPF (0-10); Urine Color Yellow (Yellow); Urine Specific Gravity 1.012 (1.001-1.035); Urine Urobilinogen < 2.0 EU/DL (0.2-1.0); WBC,Urine 29 /HPF (0-6)
[2017-01-31] MEDS ORDERED: DOCUSATE SODIUM 100 MG CAPSULE PO PRN ×2 (00:13→16:34)
[2017-01-31] MEDS ORDERED: DEXTROSE 50% 25 GM/50 ML SYRINGE IV PRN (00:13)
[2017-01-31] MEDS ORDERED: GLUCAGON 1 MG VIAL IM PRN (00:13)
[2017-01-31] MEDS ORDERED: ACETAMINOPHEN 325 MG TABLET PO PRN ×2 (00:13→16:34)
[2017-01-31] MEDS ORDERED: ONDANSETRON 4 MG/2 ML VIAL IV PRN (00:13)
--- NOTE | 2017-01-31 01:01 | Hospitalist History & Physical ---
<Steffany Bird - Last Filed: 01/31/17 00:56> Assessment and Plan - Time spent with patient Time spent with patient: Greater than 30 minutes (1) Hypertension Status: Chronic Assessment and plan: Will hold BP medications Current Visit: No (2) Elevated troponin Status: Acute Assessment and plan: Will trend Consult cardiology Current Visit: Yes (3) Diabetes Status: Chronic Assessment and plan: Will start SSI Labs pending Current Visit: No (4) Hypothyroidism Status: Chronic Assessment and plan: Labs pending Will restart Synthroid when home medications confirmed Current Visit: No (5) QUINCY (obstructive sleep apnea) Status: Chronic Assessment and plan: Will consult sleep therapy for set up of nightly C-pap while inpatient Current Visit: No (6) Altered mental status Status: Acute Current Visit: Yes (7) Hypotension Status: Acute Assessment and plan: Will start Midodrine Hold HTN medications Will continue to monitor Current Visit: Yes (8) Urinary tract infection Status: Resolved Assessment and plan: Will start Macrobid Draw urine cultures Current Visit: No Qualifiers: Urinary tract infection type: acute cystitis Hematuria presence: without hematuria Qualified Code(s): N30.00 - Acute cystitis without hematuria (9) BPH (benign prostatic hyperplasia) Status: Chronic Assessment and plan: stated Flomax was discontinued at last visit and needs restarted Awaiting appointment with Dr. Lopez Current Visit: No History of Present Illness Chief complaint: syncope History of present illness: Called to the ED for Mr. Badillo who is an 81 year old male that presents tonight via EMS for a witnessed episode of confusion and a reported BP 70/30. Five weeks ago patient began having these episodes that included transient confusion , unresponsive to verbal stimuli, incoherent mumbling followed by hypotension. These episodes were witnessed by family members and the patient's blood pressure was checked after each episode. Systolic blood pressures as low as 50 were reported. Family states that after patients mental status improved, his blood pressure would increase to over 200mHg. Family also states that during episodes patient would become very pale and sweaty. They denied any jerking, repetitive movements, deviated gazes, oral trauma, or bowel or bladder incontinence. When these episodes started patient was taken to [facility] where he was admitted for a cardiac workup. An Echo (12/2016) revealed , mitral and tricuspid regurgitation, and an EF 55-60%. Patient was discharged home and wanted to get a second opinion by Dr. Natarajan. Patient saw Dr. Natarajan in clinic where a Holter monitor was placed. Patient was to wear monitor until Feb 16. On the way home from Dr. Natarajan's clinic the patient had another episode but it was before the Holter monitor was activated. Family brought him to our ER where he was admitted with neurology and cardiology consultations. Cardiology changed medications including adding Midodrine. Patient received a sleep study that revealed an event index of >40 with significant oxygen desaturation and an EEG that showed slowing. Patient seemed to improve and was discharged to [facility] swing bed program for deconditioning. He was discharged home yesterday. Today, he had another episode as described as above and patient was brought to our ER. EKG showed NSR, Troponin elevated, elevated creatinine, and a UTI. Patient will be admitted for neurology and cardiology consult. Holter monitor will need to be interrogated. Midodrine will be restarted for BP support. SSI insulin will be initiated for glucose control. Sleep services will be consulted for assistance with nightly C-pap while inpatient. Physical therapy will be consulted to continue improvement of conditioning. Patient will be placed on Macrobid for UTI and urine cultures sent. Other home medications will be restarted once confirmed. Home Medications Medication Instructions Recorded Confirmed Type Anastrozole 1 mg PO DIRECTED 01/05/17 01/05/17 History Atorvastatin [Lipitor] 20 mg PO DAILY PRN 01/05/17 01/05/17 History Levothyroxine Sodium 75 mcg PO DAILY 01/05/17 01/05/17 History Lisinopril 5 mg PO DAILY 01/05/17 01/05/17 History Acetaminophen Tab [Tylenol Tab] 650 mg PO Q4H PRN tablet 01/12/17 Rx Aspirin EC Tab 81 mg PO DAILY tablet 01/12/17 Rx Docusate Sodium Cap [Colace Cap] 100 mg PO BID PRN capsule 01/12/17 Rx Gabapentin Cap/Tab [Neurontin 600 mg PO BEDTIME capsule 01/12/17 Rx Cap/Tab] Glucagon 1 mg IM PRN PRN vial 01/12/17 Rx HYDROcodone/ACETAMIN 5-325 [[place] 1 tablet PO Q4H PRN tablet 01/12/17 Rx 5-325] Insulin Lispro [HumaLOG] 12 unit SUBCUT AC SUPPER unit 01/12/17 Rx Insulin Lispro [HumaLOG] 14 unit SUBCUT AC BREAKFAST unit 01/12/17 Rx Insulin Lispro [HumaLOG] See Protocol SUBCUT ACHS unit 01/12/17 Rx Midodrine [Proamatine] 2.5 mg PO TID tablet 01/12/17 Rx Polyethylene Glycol Powder 17 gm PO DAILY 01/12/17 Rx [Miralax] buPROPion [Wellbutrin] 75 mg PO BID tablet 01/12/17 Rx Allergies Allergy/AdvReac Type Severity Reaction Status Date / Time No Known Allergies Allergy Verified 01/30/17 19:55 Medical,Surgical,& Family Hx - Medical History Cardio: History of: CAD, Hypertension, PVD, Valvular Heart Disease (aortic stenosis) No history of: [place], Pacemaker Neurology: History of: Cerebrovascular Accident, Peripheral Neuropathy No history of: Seizures, TIA Endocrine: History of: Diabetes Mellitus (IDDM), Diabetes Mellitus (NIDDM), Dyslipidemia, Thyroid Disorder Respiratory: History of: Obstructive Sleep Apnea No history of: Pulmonary Hypertension (Untreated) Renal: History of: Renal Problems (Chronic renal insufficiency) Genitourinary: History of: Prostate Problems Gastrointestinal: History of: GERD No history of: Gastrointestinal Bleed Musculoskeletal: History of: Musculoskeletal Problems (Osteoarthritis) Other: No history of: Cancer - Surgical History Cardiac Surgeries: Sugical HX of: Cardiac Catheterization (Mid RCA stent 2 in 2006), Carotid Endarterectomy Neurologic Surgeries: Patient denies: Neurologic Surgery HEENT Surgeries: Surgical HX of: Carotid Endarterectomy Orthopedic Surgeries: Patient denies;: Implanted Devices - Family History Family History: Reports;: Family Diabetes, Family Hypertension Denies;: Family Heart Disease - Social History Smoking Status: Former smoker Frequency of Alcohol Use: None Type of Drug Use: None Marital Status: Lives With:: Spouse - Constitutional Constitutional: Absent: anorexia, chills, fever(s), weakness - Cardiovascular Cardiovascular: Absent: chest pain at rest, chest pain with activity, diaphoresis, dyspnea, edema, palpitations - Respiratory Respiratory: Absent: cough, hemoptysis - Gastrointestinal Gastrointestinal: Absent: abdominal pain, constipation, diarrhea, dyspepsia, dysphagia, nausea, vomiting - Genitourinary Genitourinary: Present: difficulty urinating - Neurological Neurological: Present: abnormal speech, behavioral changes, confusion. Absent: convulsions Exam - Constitutional Vitals: Period Temp Pulse Resp BP Sys/Zurita Pulse Ox Last 24 Hr 97.8 F-97.8 F 75-77 16-18 115-143/64-84 95-97 General appearance: normal weight, no acute distress - Head Head exam: Present: normal inspection, normocephalic - Eye Eye exam: Present: EOMI Pupils: Present: INDU, normal accommodation - ENT ENT exam: Present: normal exam - Neck Neck exam: Present: normal inspection - Respiratory Respiratory exam: Present: clear to auscultation bilaterally (Respirations even and non-labored with symmetrical rise and fall of chest noted. ) - Cardiovascular Cardiovascular exam: Present: regular rate and rhythm - GI/Abdominal GI/Abdominal exam: Present: soft. Absent: firm, tenderness - Extremities Exam Extremities exam: Present: normal inspection, normal capillary refill, full ROM - Back Exam Back exam: Present: normal inspection - Neurological Exam Neurological exam: Present: alert, oriented X3 - Psychiatric Psychiatric exam: Present: other (irritable) - Skin Skin exam: Present: normal color, warm, dry Results - Labs CBC & BMP: 01/30/17 21:00 01/30/17 21:00 Lab Results: I have reviewed the past 24 hour labs - EKG EKG results: interpreted by DAMION <Bora Burns - Last Filed: 01/31/17 03:32> Assessment and Plan (1) Near syncope Status: Resolved Assessment and plan: I saw and examined the patient in conjunction with nurse practitioner Steffany Bird and agree with the above. Patient has a complex history of episodes of syncope, near syncope, hypotension and then rebounding to hypertension. He has had workups including cardiac, echo, EEG, MRI, neuro consult. See H&P for further details. At this point he came in because of another episode. He has no complaints at this time other than nausea. Lab work and exam are basically unremarkable. Proceed as planned above, cardiac and neurology consults have been ordered. Current Visit: No History of Present Illness History of present illness: Mr. Badillo is a 81 year old male Exam - Constitutional Vitals: Period Temp Pulse Resp BP Sys/Zurita Pulse Ox Last 24 Hr 97.8 F-97.8 F 75-77 16-18 115-143/64-84 95-97 Results - Labs CBC & BMP: 01/30/17 21:00 01/30/17 21:00
[2017-01-31] MEDS: SODIUM CHLORIDE 0.9% 1,000 ML IV SCH ×2 (01:39→15:10)
[2017-01-31 06:17] LABS: Basophils # 0.2 10*3/uL (0.0-0.2); Basophils % 1.9 % (0.0-0.8); Eosinophils # 0.3 10*3/uL (0.0-0.87); Eosinophils % 3.8 % (0.00-10.9); Hematocrit 41.2 VOL% (42.0-52.0); Hemoglobin 13.5 GM/DL (14.0-18.0); Immature Granulocytes % 0.7 %; Immature Granulocytes Absolute 0.06 #; Lymphocytes # 2.3 10*3/uL (1.4-4.0); Mean Corpuscular HGB Conc 32.8 GM/DL (32-36); Mean Corpuscular Hemoglobin 30 PG (27-34); Mean Corpuscular Volume 91.4 FL (87-102); Mean Platelet Volume 11.3 FL (9.6-12.0); Monocytes # 0.9 10*3/uL (0.11-0.8); Monocytes % 10.9 % (1.7-12.7); Neutrophils # 4.4 10*3/uL (1.4-7.4); Neutrophils % 54.7 % (38.7-73.9); Platelet Count 193 T/CUMM (130-400); Red Blood Count 4.51 MC/CUMM (3.8-5.5); Red Cell Distribution Width 14.7 % (9.3-17.3); White Blood Count 8.1 T/CUMM (4-12)
[2017-01-31 06:55] LABS: Albumin 3.2 G/DL (3.4-5.0); Bilirubin,Total 0.7 MG/DL (0.2-1.0); CKMB % 5.8 %; Calcium 8.8 MG/DL (8.5-10.1); Free T4 (Free Thyroxine) 0.81 NG/DL (0.76-1.46); Osmolality,Calculated 281.8 MOS/KG (273-304); Risk Ratio 4.41; Thyroid Stimulating Hormone 1.07 uIU/ml (0.358-3.74); Total Protein 6.2 G/DL (6.4-8.3); VLDL CHOLESTEROL 50.6 MG/DL
[2017-01-31 06:57] LABS: Troponin I Only 0.483 NG/ML (0.00-0.045)
[2017-01-31] MEDS: INSULIN LISPRO 100 UNIT/ML SUBCUT SCH ×2 (07:18→15:44)
--- NOTE | 2017-01-31 08:49 | Cardiology Consult Note ---
Assessment and Plan - Time spent with patient Time spent with patient: Greater than 30 minutes (1) Syncope and collapse Status: Acute Assessment and plan: This sounds like what he had previously it seems to have occurred when he has been off the midodrine. Plan/recommendation: Restart the midodrine, 2.5 mg p.o. 3 times daily Hold the lisinopril and any other drugs which might aggravate his orthostatic hypotension Allow his baseline blood pressure to run higher than usual to prevent these episodes of syncope with standing up/orthostatic hypotension I emphasized to the patient's the importance of taking the midodrine every day, 3 times a day To miss it for 24 hours could result in a recurrent episode of syncope We will see what Dr. Zoe Lewis redo EEG which show. If you believe we should treat for seizure, I am okay with that decision The above visit was discussed with the patient and his . Thank you for allowing me to participate in this patient's care Current Visit: No (2) Hypotension Status: Acute Current Visit: Yes (3) Debility Status: Acute Current Visit: No (4) Aortic stenosis, moderate Status: Chronic Current Visit: No (5) BPH (benign prostatic hyperplasia) Status: Chronic Current Visit: No (6) Diabetes Status: Chronic Current Visit: No (7) QUINCY (obstructive sleep apnea) Status: Chronic Current Visit: No (8) Orthostatic hypotension Status: Resolved Current Visit: No (9) Urinary tract infection Status: Resolved Current Visit: No Qualifiers: Urinary tract infection type: acute cystitis Hematuria presence: without hematuria Qualified Code(s): N30.00 - Acute cystitis without hematuria History of Present Illness - Data of Consult Patient: known to practice within the last 3 years Consult date: 01/31/17 Requesting Physician: Bora Burns - Consult Narrative Reason for consult: Evaluate spell, thought to be orthostatic hypotension History of present illness: Mr. 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 Emmy Desai presents tonight via EMS for a witnessed episode of confusion and a reported BP 70/30. Five weeks ago patient began having these episodes that included transient confusion, unresponsive to verbal stimuli, incoherent mumbling followed by hypotension. These episodes were witnessed by family members and the patient's blood pressure was checked after each episode. Systolic blood pressures as low as 50 were reported. Family states that after patients mental status improved, his blood pressure would increase to over 200mHg. Family also states that during episodes patient would become very pale and sweaty. They denied any jerking, repetitive movements, deviated gazes, oral trauma, or bowel or bladder incontinence. When these episodes started patient was taken to [facility] where he was admitted for a cardiac workup. An Echo (12/2016) revealed , mitral and tricuspid regurgitation, and an EF 55-60%. Patient was discharged home and wanted to get a second opinion by Dr. Natarajan. Patient saw Dr. Natarajan in clinic where a Holter monitor was placed. Patient was to wear monitor until Feb 16. On the way home from Dr. Natarajan's clinic the patient had another episode but it was before the Holter monitor was activated. Family brought him to our ER where he was admitted with neurology and cardiology consultations. Cardiology changed medications including adding Midodrine. Patient received a sleep study that revealed an event index of >40 with significant oxygen desaturation and an EEG that showed slowing. Patient seemed to improve and was discharged to [facility] swing bed program for deconditioning. He was discharged home yesterday. Today, he had another episode as described as above and patient was brought to our ER. EKG showed NSR, Troponin elevated, elevated creatinine, and a UTI. Patient will be admitted for neurology and cardiology consult. Holter monitor will need to be interrogated. Midodrine will be restarted for BP support. SSI insulin will be initiated for glucose control. Sleep services will be consulted for assistance with nightly C-pap while inpatient. Physical therapy will be consulted to continue improvement of conditioning. Patient will be placed on Macrobid for UTI and urine cultures sent. Other home medications will be restarted once confirmed. His noted that he did not have any episodes while he was at swing bed. However, once he is discharged, she went to her local pharmacy and did not have a prescription for the midodrine Thus, he did not take in the midodrine over 24 hours then had another episode, just like it had previously. When he had been on the midodrine he did not have any of these episodes. CC: Hernán Ryan MD - Home Medications and Allergies Home Medications: Home Medications Medication Instructions Recorded Confirmed Type Anastrozole 1 mg PO DIRECTED 01/05/17 01/31/17 History Atorvastatin [Lipitor] 20 mg PO DAILY PRN 01/05/17 01/31/17 History Levothyroxine Sodium 75 mcg PO DAILY 01/05/17 01/31/17 History Lisinopril 5 mg PO DAILY 01/05/17 01/31/17 History Acetaminophen Tab [Tylenol Tab] 650 mg PO Q4H PRN tablet 01/12/17 01/31/17 Rx Aspirin EC Tab 81 mg PO DAILY tablet 01/12/17 01/31/17 Rx Docusate Sodium Cap [Colace Cap] 100 mg PO BID PRN capsule 01/12/17 01/31/17 Rx Gabapentin Cap/Tab [Neurontin 600 mg PO BEDTIME capsule 01/12/17 01/31/17 Rx Cap/Tab] Glucagon 1 mg IM PRN PRN vial 01/12/17 01/31/17 Rx HYDROcodone/ACETAMIN 5-325 [[place] 1 tablet PO Q4H PRN tablet 01/12/17 01/31/17 Rx 5-325] Insulin Lispro [HumaLOG] 12 unit SUBCUT AC SUPPER unit 01/12/17 01/31/17 Rx Insulin Lispro [HumaLOG] 14 unit SUBCUT AC BREAKFAST unit 01/12/17 01/31/17 Rx Insulin Lispro [HumaLOG] See Protocol SUBCUT ACHS unit 01/12/17 01/31/17 Rx Midodrine [Proamatine] 2.5 mg PO TID tablet 01/12/17 01/31/17 Rx Polyethylene Glycol Powder 17 gm PO DAILY 01/12/17 01/31/17 Rx [Miralax] buPROPion [Wellbutrin] 75 mg PO BID tablet 01/12/17 01/31/17 Rx Allergies/Adverse Reactions: Allergies Allergy/AdvReac Type Severity Reaction Status Date / Time No Known Allergies Allergy Verified 01/30/17 19:55 12 point system: reviewed and no additional remarkable complaints except as stated (A 12 point review of systems is negative except for as mentioned in the HPI. I am not sure what is best. While she just please stop my Lasix order but use of Spironolactone. Reduce his fluids to 50 cc/h. He can be reassessed tomorrow.) Medical,Surgical,& Family Hx - Medical History Cardio: History of: CAD, Hypertension, PVD, Valvular Heart Disease (aortic stenosis) No history of: MA, Pacemaker Neurology: History of: Cerebrovascular Accident, Peripheral Neuropathy No history of: Seizures, TIA Endocrine: History of: Diabetes Mellitus (IDDM), Diabetes Mellitus (NIDDM), Dyslipidemia, Thyroid Disorder Respiratory: History of: Obstructive Sleep Apnea No history of: Pulmonary Hypertension (Untreated) Renal: History of: Renal Problems (Chronic renal insufficiency) Genitourinary: History of: Prostate Problems Gastrointestinal: History of: GERD No history of: Gastrointestinal Bleed Musculoskeletal: History of: Musculoskeletal Problems (Osteoarthritis) Other: No history of: Cancer - Surgical History Cardiac Surgeries: Sugical HX of: Cardiac Catheterization (Mid RCA stent 2 in 2006), Carotid Endarterectomy Neurologic Surgeries: Patient denies: Neurologic Surgery HEENT Surgeries: Surgical HX of: Carotid Endarterectomy Abdominal Surgeries: Surgical HX of: Appendectomy Orthopedic Surgeries: Patient denies;: Implanted Devices - Family History Family History: Reports;: Family Diabetes, Family Hypertension Denies;: Family Heart Disease - Social History Smoking Status: Former smoker Frequency of Alcohol Use: None Type of Drug Use: None Marital Status: Lives With:: Spouse Functional capacity: uses cane/walker Physical Examination Vital Signs Temp Pulse Resp BP Pulse Ox 97.8 F 77 16 115/64 95 01/30/17 19:38 01/30/17 19:38 01/30/17 19:38 01/30/17 19:38 01/30/17 19:38 Exam: HEENT: Pupils equal, reactive to light and accommodation Neck: NoJVD or bruit Lungs clear to auscultation Heart: Regular rhythm rate with normal S1 and S2. Apical S4, 1/6 systolic ejection murmur along the left sternal border. Abdomen: No hepatosplenomegaly Spine/extremities: No clubbing, cyanosis, or edema Neuro: Nonfocal Psych: No depression or anxiety Result/EKG - Labs CBC & BMP: 01/31/17 05:54 01/31/17 05:54 Lab Results: I have reviewed the past 24 hour labs Labs: Laboratory Results - last 24 hr 01/30/17 01/30/17 01/30/17 21:00 21:00 21:00 WBC 9.2 RBC 4.73 Hgb 14.0 Hct 43.3 MCV 91.5 MCH 30 MCHC 32.3 RDW 14.6 Plt Count 191 MPV 11.3 Neut % (Auto) 57.3 Lymph % (Auto) 24.7 K[place] % (Auto) 12.1 Eos % (Auto) 3.5 Baso % (Auto) 1.6 H Neut # (Auto) 5.3 Lymph # (Auto) 2.3 [place] # (Auto) 1.1 H Eos # (Auto) 0.3 Baso # (Auto) 0.2 Immature Gran % 0.8 Nucleated RBC % 0.0 Immature Gran # 0.07 Nucleated RBCs # 0.00 Immature Plt Fraction 0.0 Sodium 136 Potassium 5.1 Chloride 100 Carbon Dioxide 32 Anion Gap 9.1 BUN 30 H Creatinine 2.20 H GFR Calculation 33 BUN/Creatinine Ratio 13.00 Glucose 145 H POC Glucose Hemoglobin A1c Calculated Osmolality 280.0 Calcium 9.3 Total Bilirubin < 0.39 AST 31 ALT 30 Alkaline Phosphatase 72 Total Creatine Kinase CK-MB (CK-2) CK and CKMB Interp Troponin I 0.335 H Total Protein 6.9 Albumin 3.3 L Globulin 3.6 H Albumin/Globulin Ratio 0.9 L Triglycerides Cholesterol LDL Cholesterol VLDL Cholesterol HDL Cholesterol Heart Disease Risk Ratio Free T4 TSH 3rd Generation Urine Color Urine Appearance Urine pH Ur Specific [place] Urine Protein Urine Glucose (UA) Urine Ketones Urine Blood Urine Nitrate Urine Bilirubin Urine Urobilinogen Urine Leukocytes Urine RBC Urine WBC Ur Squamous Epith Cells Ur Renal Epithelial Cell Urine Bacteria Hyaline Casts Urine Mucus Ur Culture Indicated? 01/30/17 01/31/17 01/31/17 23:10 00:09 05:54 WBC 8.1 RBC 4.51 Hgb 13.5 L Hct 41.2 L MCV 91.4 MCH 30 MCHC 32.8 RDW 14.7 Plt Count 193 MPV 11.3 Neut % (Auto) 54.7 Lymph % (Auto) 28.0 [place] % (Auto) 10.9 Eos % (Auto) 3.8 Baso % (Auto) 1.9 H Neut # (Auto) 4.4 Lymph # (Auto) 2.3 [place] # (Auto) 0.9 H Eos # (Auto) 0.3 Baso # (Auto) 0.2 Immature Gran % 0.7 Nucleated RBC % 0.0 Immature Gran # 0.06 Nucleated RBCs # 0.00 Immature Plt Fraction 0.0 Sodium Potassium Chloride Carbon Dioxide Anion Gap BUN Creatinine GFR Calculation BUN/Creatinine Ratio Glucose POC Glucose 115 H Hemoglobin A1c Calculated Osmolality Calcium Total Bilirubin AST ALT Alkaline Phosphatase Total Creatine Kinase CK-MB (CK-2) CK and CKMB Interp Troponin I Total Protein Albumin Globulin Albumin/Globulin Ratio Triglycerides Cholesterol LDL Cholesterol VLDL Cholesterol HDL Cholesterol Heart Disease Risk Ratio Free T4 TSH 3rd Generation Urine Color Yellow Urine Appearance Slightly hazy Urine pH 5.0 Ur Specific Gard[place] 1.012 Urine Protein Negative Urine Glucose (UA) Negative Urine Ketones Negative Urine Blood Negative Urine Nitrate Negative Urine Bilirubin Negative Urine Urobilinogen < 2.0 H Urine Leukocytes Moderate H Urine RBC 2 Urine WBC 29 Ur Squamous Epith Cells Occasional Ur Renal Epithelial Cell Occasional Urine Bacteria Occasional Hyaline Casts 13 Urine Mucus Occasional Ur Culture Indicated? Results to follow 01/31/17 01/31/17 01/31/17 05:54 05:54 07:18 WBC RBC Hgb Hct MCV MCH MCHC RDW Plt Count MPV Neut % (Auto) Lymph % (Auto) K[place] % (Auto) Eos % (Auto) Baso % (Auto) Neut # (Auto) Lymph # (Auto) [place] # (Auto) Eos # (Auto) Baso # (Auto) Immature Gran % Nucleated RBC % Immature Gran # Nucleated RBCs # Immature Plt Fraction Sodium 137 Potassium 5.0 Chloride 102 Carbon Dioxide 29 Anion Gap 11.0 BUN 30 H Creatinine 1.90 H GFR Calculation 40 BUN/Creatinine Ratio 15.00 Glucose 147 H POC Glucose 147 H Hemoglobin A1c 6.7 H Calculated Osmolality 281.8 Calcium 8.8 Total Bilirubin 0.70 AST 28 ALT 25 Alkaline Phosphatase 66 Total Creatine Kinase 184 CK-MB (CK-2) 10.6 H CK and CKMB Interp 5.8 Troponin I 0.483 H D Total Protein 6.2 L Albumin 3.2 L Globulin 3.0 Albumin/Globulin Ratio 1.0 L Triglycerides 253 H Cholesterol 119 LDL Cholesterol 66.0 VLDL Cholesterol 50.6 HDL Cholesterol 27 L Heart Disease Risk Ratio 4.41 Free T4 0.81 TSH 3rd Generation 1.070 Urine Color Urine Appearance Urine pH Ur Specific Gardiner Urine Protein Urine Glucose (UA) Urine Ketones Urine Blood Urine Nitrate Urine Bilirubin Urine Urobilinogen Urine Leukocytes Urine RBC Urine WBC Ur Squamous Epith Cells Ur Renal Epithelial Cell Urine Bacteria Hyaline Casts Urine Mucus Ur Culture Indicated? - Diagnostic Findings Procedure: Chest x-ray: report reviewed by me - EKG EKG results: interpreted by me Quality Measures - Stroke Symptom Onset Unknown: No
[2017-01-31] MEDS ORDERED: NITROFURANTOIN MACRO/MONO 100 MG CAPSULE PO SCH (09:00)
[2017-01-31] MEDS: CIPROFLOXACIN 500 MG TABLET PO SCH ×2 (09:22→21:21)
[2017-01-31] MEDS: PANTOPRAZOLE 40 MG TABLET PO SCH (09:22)
[2017-01-31] MEDS: ENOXAPARIN 40 MG/0.4 ML SYRINGE SUBCUT SCH (09:23)
[2017-01-31] MEDS: MIDODRINE 5 MG TABLET PO SCH ×4 (09:25→21:22)
[2017-01-31 10:26] LABS: CKMB % 5.7 %
[2017-01-31 10:27] LABS: Troponin I Only 0.524 NG/ML (0.00-0.045)
--- NOTE | 2017-01-31 12:10 | Neurology Consult Note ---
History of Present Illness History of present illness: 81 year old male who has been admitted several times last 3-4 month admitted again yesterday with change in mental status, confusion and decreasing level of consciousness lasted for 10-15 minutes. That presents last night via EMS for a witnessed episode of confusion and a reported BP 70/30. Five weeks ago patient began having these episodes that included transient confusion, unresponsive to verbal stimuli, incoherent mumbling followed by hypotension. These episodes were witnessed by family members and the patient's blood pressure was checked after each episode. Systolic blood pressures as low as 50 were reported. Family states that after patients mental status improved, his blood pressure would increase to over 200mHg. Family also states that during episodes patient would become very pale and sweaty. They denied any jerking, repetitive movements, deviated gazes, oral trauma, or bowel or bladder incontinence. Patient received a sleep study that revealed an event index of >40 with significant oxygen desaturation and an EEG that showed slowing. EKG showed NSR, Troponin elevated, elevated creatinine, and a UTI. Patient will be admitted for neurology and cardiology consult. He is found to have another UTI episode and he is on Cipro Home Medications Medication Instructions Recorded Confirmed Type Anastrozole 1 mg PO DIRECTED 01/05/17 01/31/17 History Atorvastatin [Lipitor] 20 mg PO DAILY PRN 01/05/17 01/31/17 History Levothyroxine Sodium 75 mcg PO DAILY 01/05/17 01/31/17 History Lisinopril 5 mg PO DAILY 01/05/17 01/31/17 History Acetaminophen Tab [Tylenol Tab] 650 mg PO Q4H PRN tablet 01/12/17 01/31/17 Rx Aspirin EC Tab 81 mg PO DAILY tablet 01/12/17 01/31/17 Rx Docusate Sodium Cap [Colace Cap] 100 mg PO BID PRN capsule 01/12/17 01/31/17 Rx Gabapentin Cap/Tab [Neurontin 600 mg PO BEDTIME capsule 01/12/17 01/31/17 Rx Cap/Tab] Glucagon 1 mg IM PRN PRN vial 01/12/17 01/31/17 Rx HYDROcodone/ACETAMIN 5-325 [[place] 1 tablet PO Q4H PRN tablet 01/12/17 01/31/17 Rx 5-325] Insulin Lispro [HumaLOG] 12 unit SUBCUT AC SUPPER unit 01/12/17 01/31/17 Rx Insulin Lispro [HumaLOG] 14 unit SUBCUT AC BREAKFAST unit 01/12/17 01/31/17 Rx Insulin Lispro [HumaLOG] See Protocol SUBCUT ACHS unit 01/12/17 01/31/17 Rx Midodrine [Proamatine] 2.5 mg PO TID tablet 01/12/17 01/31/17 Rx Polyethylene Glycol Powder 17 gm PO DAILY 01/12/17 01/31/17 Rx [Miralax] buPROPion [Wellbutrin] 75 mg PO BID tablet 01/12/17 01/31/17 Rx Allergies Allergy/AdvReac Type Severity Reaction Status Date / Time No Known Allergies Allergy Verified 01/30/17 19:55 12 point system: reviewed and no additional remarkable complaints except as stated Medical,Surgical,& Family Hx - Medical History Cardio: History of: CAD, Hypertension, PVD, Valvular Heart Disease (aortic stenosis) No history of: PA, Pacemaker Neurology: History of: Cerebrovascular Accident, Peripheral Neuropathy No history of: Seizures, TIA Endocrine: History of: Diabetes Mellitus (IDDM), Diabetes Mellitus (NIDDM), Dyslipidemia, Thyroid Disorder Respiratory: History of: Obstructive Sleep Apnea No history of: Pulmonary Hypertension (Untreated) Renal: History of: Renal Problems (Chronic renal insufficiency) Genitourinary: History of: Prostate Problems Gastrointestinal: History of: GERD No history of: Gastrointestinal Bleed Musculoskeletal: History of: Musculoskeletal Problems (Osteoarthritis) Other: No history of: Cancer - Surgical History Cardiac Surgeries: Sugical HX of: Cardiac Catheterization (Mid RCA stent 2 in 2006), Carotid Endarterectomy Neurologic Surgeries: Patient denies: Neurologic Surgery HEENT Surgeries: Surgical HX of: Carotid Endarterectomy Abdominal Surgeries: Surgical HX of: Appendectomy Orthopedic Surgeries: Patient denies;: Implanted Devices - Family History Family History: Reports;: Family Diabetes, Family Hypertension Denies;: Family Heart Disease - Social History Smoking Status: Former smoker Frequency of Alcohol Use: None Type of Drug Use: None Exam - Constitutional Vitals: Period Temp Pulse Resp BP Sys/Zurita Pulse Ox Last 24 Hr 97.2 F-98.1 F 67-85 16-20 115-152/64-94 90-97 Exam: GENERAL: Patient is in no acute distress. NECK: Neck is supple. There is no JVD. No carotid bruits present. No thyroid masses. CVS: First and second heart sounds are normal. There is no S3 present. Regular rate and rhythm. RESPIRATORY: Lungs are clear to auscultation without any rales or rhonchi. ABDOMEN: Soft and non-tender. Bowel sounds are present. There is no hepatosplenomegaly. EXT: There is no palpable edema. Peripheral pulses are present. Skin: No rashes Central Nervous system: General: Alert, awake and Oriented x 2 Speech: Fluent Comprehension: Fair Facial expressions: Normal Cranial Nerves: CN1/Olfactory: Normal CN II/ Optic: Normal, Visual Ocampo unreliable CN III, and : INDU & EOMI CN V: Normal & intact CN VII: face is symmetric CNVIII: Normal CN XI/X/XI/XII: Intact and Normal Motor: Bulk and Tone is normal. Strength in the right 4/5 Strength in the left 4/5 Sensory: Decreased for all the modalities of PP, LT and temp sense Reflexes: 1+ and symmetrical Cerebellar function: Normal finger to nose and heel to velez testing. Toes: Equivocal Gait: Not tested Results - Labs CBC & BMP: 01/31/17 05:54 01/31/17 05:54 Assessment and Plan (1) Altered mental status Status: Acute Assessment and plan: Etiology is not clear. These are recurrent episodes more so stereotypical. Differential diagnoses included orthostatic hypotension, TIAs, seizures, vasovagal phenomena etc. Repeat EEG in the morning. Agree with cardiology evaluation Thank you for the consult Current Visit: Yes
--- NOTE | 2017-01-31 13:49 | Hospitalist Progress Note ---
Hospitalist: Subjective Interval history: 81-year-old male admitted with confusion and altered mental status and UTI. Patient seen and examined and chart reviewed, see orders Exam - Constitutional Vitals: Period Temp Pulse Resp BP Sys/Zurita Pulse Ox Last 24 Hr 97.2 F-98.1 F 62-85 16-20 115-156/64-94 90-97 Results - Labs CBC & BMP: 01/31/17 05:54 01/31/17 05:54 Quality Measures - Stroke Symptom Onset Unknown: No
[2017-01-31 16:13] LABS: CKMB % 5.8 %
[2017-01-31] MEDS ORDERED: ATORVASTATIN 20 MG TABLET PO PRN (16:34)
[2017-01-31 16:37] LABS: Troponin I Only 0.629 NG/ML (0.00-0.045)
[2017-01-31] MEDS: buPROPion 75 MG TABLET PO SCH (21:21)
[2017-01-31] MEDS: GABAPENTIN 300 MG CAPSULE PO SCH (21:21)
[2017-01-31 23:06] LABS: CKMB % 4.7 %
[2017-01-31 23:10] LABS: Troponin I Only 0.467 NG/ML (0.00-0.045)
[2017-02-01] MEDS: SODIUM CHLORIDE 0.9% 1,000 ML IV SCH ×2 (03:39→18:26)
[2017-02-01] MEDS: INSULIN LISPRO 100 UNIT/ML SUBCUT SCH ×2 (08:40→16:15)
[2017-02-01] MEDS ORDERED: ANASTROZOLE 1 MG TABLET PO SCH (09:00)
[2017-02-01] MEDS: PANTOPRAZOLE 40 MG TABLET PO SCH (09:17)
[2017-02-01] MEDS: LEVOTHYROXINE 75 MCG TABLET PO SCH (09:17)
[2017-02-01] MEDS: ENOXAPARIN 40 MG/0.4 ML SYRINGE SUBCUT SCH (09:17)
[2017-02-01] MEDS: MIDODRINE 5 MG TABLET PO SCH ×3 (09:17→21:17)
[2017-02-01] MEDS: ASPIRIN EC 81 MG TABLET PO SCH (09:17)
[2017-02-01] MEDS: CIPROFLOXACIN 500 MG TABLET PO SCH ×2 (09:17→21:17)
[2017-02-01] MEDS: buPROPion 75 MG TABLET PO SCH ×2 (09:17→21:17)
[2017-02-01] MEDS: POLYETHYLENE GLYCOL POWDER 17 GM PACK PO SCH (09:18)
--- NOTE | 2017-02-01 14:20 | Neurology Progress Note ---
Neurology - PN : Subjective Interval history: Patient seems to be doing okay. No new problems reported. Feeling better. Back to his baseline. Exam (Progress Note) - Constitutional Vitals: Period Temp Pulse Resp BP Sys/Zurita Pulse Ox Last 24 Hr 96.8 F-98.0 F 57-106 18-20 123-186/60-90 90-95 Exam: GENERAL: Patient is in no acute distress. NECK: Neck is supple. There is no JVD. No carotid bruits present. No thyroid masses. CVS: First and second heart sounds are normal. There is no S3 present. Regular rate and rhythm. RESPIRATORY: Lungs are clear to auscultation without any rales or rhonchi. ABDOMEN: Soft and non-tender. Bowel sounds are present. There is no hepatosplenomegaly. EXT: There is no palpable edema. Peripheral pulses are present. Skin: No rashes Central Nervous system: General: Alert, awake and Oriented x 2 Speech: Fluent Comprehension: Fair Facial expressions: Normal Cranial Nerves: CN1/Olfactory: Normal CN II/ Optic: Normal, Visual Ocampo unreliable CN III, and : INDU & EOMI CN V: Normal & intact CN VII: face is symmetric CNVIII: Normal CN XI/X/XI/XII: Intact and Normal Motor: Bulk and Tone is normal. Strength in the right 4/5 Strength in the left 4/5 Sensory: Decreased for all the modalities of PP, LT and temp sense Reflexes: 1+ and symmetrical Cerebellar function: Normal finger to nose and heel to velez testing. Toes: Equivocal Gait: Not tested Results - Labs CBC & BMP: 01/31/17 05:54 01/31/17 05:54 Assessment and Plan (1) Altered mental status Status: Acute Assessment and plan: This could very well be due to orthostatic hypotension Cancel EEG as per family's request Okay to go home from neuro standpoint Sign off please call as needed Current Visit: Yes Quality Measures - Stroke Symptom Onset Unknown: No
--- NOTE | 2017-02-01 14:50 | Cardiology Progress Note ---
Gamaliel Crocker April, RN, am scribing for, and in the presence of, Clarence Martinez MD 14:50. Assessment and Plan (1) Syncope and collapse Status: Acute Assessment and plan: He has been restarted on Midodrine 2.5 mg p[address]o. [address] Debbie hylton consultation is evaluating. Current Visit: No (2) Hypotension Status: Chronic Current Visit: Yes (3) Debility Status: Chronic Current Visit: Yes (4) Aortic stenosis, moderate Status: Chronic Current Visit: Yes (5) Diabetes Status: Chronic Assessment and plan: Hospitalist is managing. Current Visit: Yes (6) QUINCY (obstructive sleep apnea) Status: Chronic Current Visit: Yes (7) Orthostatic hypotension Status: Resolved Assessment and plan: Lisinopril is being held. He has been started on Midodrine. Current Visit: No (8) Urinary tract infection Status: Acute Assessment and plan: He was started on Macrobid. Current Visit: Yes Qualifiers: Urinary tract infection type: acute cystitis Hematuria presence: without hematuria Qualified Code(s): N30.00 - Acute cystitis without hematuria Cardiology - PN: Subj Interval history: Chief Internal Auditor: Dr. Natarajan Summary: Mr. Badillo is a 81 year old male who presented January 30 via EMS for a witnessed episode of confusion and a reported BP 70/30. Five weeks ago patient began having these episodes that included transient confusion, unresponsive to verbal stimuli, incoherent mumbling followed by hypotension. These episodes were witnessed by family members and the patient's blood pressure was checked after each episode. Systolic blood pressures as low as 50 were reported. Family states that after patients mental status improved, his blood pressure would increase to over 200mHg. Family also states that during episodes patient would become very pale and sweaty. They denied any jerking, repetitive movements, deviated gazes, oral trauma, or bowel or bladder incontinence. When these episodes started patient was taken to [place] where he was admitted for a cardiac workup. An Echo (12/2016) revealed , mitral and tricuspid regurgitation, and an EF 55-60%. Patient was discharged home and wanted to get a second opinion by Dr. Natarajan. Patient saw Dr. Natarajan in clinic where a Holter monitor was placed. Patient was to wear monitor until Feb 16. On the way home from Dr. Natarajan's clinic the patient had another episode but it was before the Holter monitor was activated. Family brought him to our ER where he was admitted with neurology and cardiology consultations. Cardiology changed medications including adding Midodrine. Patient received a sleep study that revealed an event index of >40 with significant oxygen desaturation and an EEG that showed slowing. Patient seemed to improve and was discharged to [facility] swing bed program for deconditioning. He was discharged home January 29. On January 30 he had another episode as described as above and patient was brought to our ER. EKG showed NSR, Troponin elevated, elevated creatinine, and a UTI. Patient will be admitted for neurology and cardiology consult. Holter monitor will need to be interrogated. Midodrine will be restarted for BP support. SSI insulin will be initiated for glucose control. Sleep services will be consulted for assistance with nightly C-pap while inpatient. Physical therapy will be consulted to continue improvement of conditioning. Patient will be placed on Macrobid for UTI and urine cultures sent. Other home medications will be restarted once confirmed. His noted that he did not have any episodes while he was at swing bed. However, once he is discharged, she went to her local pharmacy and did not have a prescription for the midodrine Thus, he did not take in the midodrine for more than 24 hours then had another episode , just like it had previously. When he had been on the midodrine he did not have any of these episodes. February 01, 2017: Mr. Badillo is seen resting in bed no acute distress. He denies any chest pain, shortness of breath, palpitations, dizziness. He denies having any further episodes of syncope or near syncope. He is asking when he can go home. Troponins have been elevated at 0.524, 0.69, and 0.467. This however is in light of elevated creatinine, it was 2.2 on admission and 1.9 yesterday. cardiac monitor technician currently shows sinus rhythm with heart rates in the 70s I have discussed in detail the particulars of this case and I have examined the patient and reviewed the patient's chart both current and old. I was directly involved in the patient's evaluation and management and I completely agree with Gunjan Alston RN regarding this patient's evaluation and treatment plan. Exam (Progress Note) - Constitutional Vitals: Period Temp Pulse Resp BP Sys/Zurita Pulse Ox Last 24 Hr 96.8 F-98.0 F 57-106 18-20 123-186/60-90 90-95 General appearance: no acute distress, over weight - Head Head exam: Absent: abrasion, hematoma - Eye Eye exam: Absent: periorbital swelling, laceration to eyelids - Neck Neck exam: Absent: lymphadenopathy, tenderness - Respiratory Respiratory exam: Present: clear to auscultation bilaterally. Absent: accessory muscle use, chest wall tenderness - Cardiovascular Cardiovascular exam: Present: regular rate and rhythm. Absent: rubs - GI/Abdominal GI/Abdominal exam: Present: normal bowel sounds, soft. Absent: distended, tenderness - Extremities Exam Extremities exam: Absent: calf tenderness, edema - Neurological Exam Neurological exam: Present: alert, oriented X3 - Psychiatric Psychiatric exam: Present: normal affect, normal mood - Skin Skin exam: Present: warm, dry Result/EKG - Labs CBC & BMP: 01/31/17 05:54 01/31/17 05:54 Lab Results: I have reviewed the past 24 hour labs Labs: Laboratory Results - last 24 hr 01/31/17 01/31/17 01/31/17 15:20 15:44 20:54 POC Glucose 158 H 183 H Total Creatine Kinase 179 CK-MB (CK-2) 10.4 H CK and CKMB Interp 5.8 Troponin I 0.629 H D 01/31/17 02/01/17 02/01/17 21:28 06:55 11:35 POC Glucose 143 H 179 H Total Creatine Kinase 205 CK-MB (CK-2) 9.7 H CK and CKMB Interp 4.7 Troponin I 0.467 H D - EKG EKG results: interpreted by me EKG shows: sinus rhythm Quality Measures - Stroke Symptom Onset Unknown: No I, Clarence Martinez MD, personally performed the services described in this documentation, ascribed by Gunjan Alston RN in my presence, and it is both accurate and complete .
--- NOTE | 2017-02-01 15:51 | Hospitalist Progress Note ---
Hospitalist: Subjective Interval history: Patient is awake and comfortable. Exam - Constitutional Vitals: Period Temp Pulse Resp BP Sys/Zurita Pulse Ox Last 24 Hr 96.8 F-98.0 F 57-106 18-20 123-186/60-90 90-95 Exam: General: [No Acute Distress] HEENT: [Normocephalic, atraumatic, Extra ocular movements intact] Neck: [Supple, No JVD] Chest: [Clear to auscultation B/L] CV: [S1 + S2 audible without murmur, gallop or rub] Abd: [soft, NT, Non-distended, BS +] Ext: [No edema] Skin: [No purpura, bruising or rash] Rheumatologic: [No Joint deformities] Neurologic: [Awake and alert] Results - Labs CBC & BMP: 01/31/17 05:54 01/31/17 05:54 - Impressions Assessment and Plan: (1) Syncope Status: Acute Assessment and plan: This likely due to hypotension, blood pressure has improved with midodrine 2.5 mg p.o. 3 times daily. Neurology has signed off Current Visit: No (2) Chronic orthostatic hypotension Status: Chronic Current Visit: Yes (3) Debility Status: Chronic Current Visit: Yes (4) Aortic stenosis, moderate Status: Chronic Current Visit: Yes (5) Diabetes mellitus-2 Status: Chronic Assessment and plan: This is controlled Current Visit: Yes (6) QUINCY (obstructive sleep apnea) Status: Chronic Current Visit: Yes (7) Urinary tract infection, POA Status: Acute Assessment and plan: Urine cultures growing gram-positive cocci, he is on Macrobid, follow-up culture Current Visit: Yes Quality Measures - Stroke Symptom Onset Unknown: No
--- NOTE | 2017-02-01 16:57 | Sleep Medicine Consult ---
Assessment and Plan (1) QUINCY (obstructive sleep apnea) Status: Chronic Assessment and plan: This patient does have severe sleep apnea and is refusing therapy. He understands that he is at risk for cardiovascular event such as stroke or heart attack. He could be treated with supplemental oxygen alone given his unwillingness to sleep with CPAP. This may be able to be set up by social service worker. He will require documented O2 desaturation during sleep with greater than 5 minutes of sleep with O2 sats of less than 88%. We can check and see if we can utilize his prior sleep study for that prescription given his refractoriness to CPAP. Current Visit: Yes (2) Diabetes Status: Chronic Assessment and plan: The prevalence rate for obstructive sleep apnea in patients with type 2 diabetes can be as high as 86%. Those patients with moderate to severe obstructive sleep apnea are at a greater risk for diabetic nephropathy and neuropathy. Compliance with CPAP therapy for these patients can lead to improvement in glycemic control and improvement in insulin sensitivity. Current Visit: Yes (3) Hypertension Status: Chronic Assessment and plan: The prevalence rate for obstructive sleep apnea patients with hypertension is 35 %. That rate can be as high as 80% in patients who require 4 or more medications for blood pressure control. Current Visit: No (4) History of CVA (cerebrovascular accident) Status: Chronic Assessment and plan: Untreated severe sleep apnea can be a risk factor for recurrent stroke. Treating his sleep apnea may decrease that risk. The patient has acknowledged this risk and understands the consequences potentially of noncompliance with CPAP. He stated that he would rather have a stroke then wear CPAP. Current Visit: No History of Present Illness Chief complaint: Sleep apnea History of present illness: Mr. Badillo is a 81 year old male with a history of obstructive sleep apnea diagnosed remotely in the past. He was noncompliant with CPAP. He was recently hospitalized in December and was reevaluated with home sleep testing. This again reveals severe sleep apnea with an AHI of over 40. He was treated with auto titration CPAP during his hospital stay and seemed to have some improvement and exhibited fair tolerance of CPAP during that hospital course. We worked with him closely while he was here. He apparently went to a swing bed in [place] and did not use his auto titration CPAP. His states that he refuses to use it and that he complains of being uncomfortable. This basically what the patient says to me. He does not give any specifics on why he will not sleep with it. He declines to try it again and does not want to be reassessed for sleep apnea. Home Medications Medication Instructions Recorded Confirmed Type Anastrozole 1 mg PO DIRECTED 01/05/17 01/31/17 History Atorvastatin [Lipitor] 20 mg PO DAILY PRN 01/05/17 01/31/17 History Levothyroxine Sodium 75 mcg PO DAILY 01/05/17 01/31/17 History Lisinopril 5 mg PO DAILY 01/05/17 01/31/17 History Acetaminophen Tab [Tylenol Tab] 650 mg PO Q4H PRN tablet 01/12/17 01/31/17 Rx Aspirin EC Tab 81 mg PO DAILY tablet 01/12/17 01/31/17 Rx Docusate Sodium Cap [Colace Cap] 100 mg PO BID PRN capsule 01/12/17 01/31/17 Rx Gabapentin Cap/Tab [Neurontin 600 mg PO BEDTIME capsule 01/12/17 01/31/17 Rx Cap/Tab] Glucagon 1 mg IM PRN PRN vial 01/12/17 01/31/17 Rx HYDROcodone/ACETAMIN 5-325 [[place] 1 tablet PO Q4H PRN tablet 01/12/17 01/31/17 Rx 5-325] Insulin Lispro [HumaLOG] 12 unit SUBCUT AC SUPPER unit 01/12/17 01/31/17 Rx Insulin Lispro [HumaLOG] 14 unit SUBCUT AC BREAKFAST unit 01/12/17 01/31/17 Rx Insulin Lispro [HumaLOG] See Protocol SUBCUT ACHS unit 01/12/17 01/31/17 Rx Midodrine [Proamatine] 2.5 mg PO TID tablet 01/12/17 01/31/17 Rx Polyethylene Glycol Powder 17 gm PO DAILY 01/12/17 01/31/17 Rx [Miralax] buPROPion [Wellbutrin] 75 mg PO BID tablet 01/12/17 01/31/17 Rx Allergies Allergy/AdvReac Type Severity Reaction Status Date / Time No Known Allergies Allergy Verified 01/30/17 19:55 Review of systems: Otherwise unremarkable from a sleep medicine standpoint. Exam (Pulmonay) H&P - Constitutional Vitals: Period Temp Pulse Resp BP Sys/Zurita Pulse Ox Last 24 Hr 96.8 F-98.1 F 57-106 18-20 123-189/60-90 90-95 Exam: He is alert and responsive. He does look better than he did a month ago. Pupils equal round reactive to light and accommodation. Extraocular movements intact. Oropharynx with a class III Mallampati exam. Neck is supple without adenopathy. Chest with symmetrical breath sounds without focal wheeze or rhonchi. Cardiac exam reveals a regular rhythm without murmur or gallop. Abdomen obese nontender without palpable hepatosplenomegaly or mass. Extremities are without clubbing, cyanosis, or edema. Neurologically, he is grossly intact. He moves all extremities with good strength. Medical,Surgical,& Family Hx - Medical History Cardio: History of: CAD, Hypertension, PVD, Valvular Heart Disease (aortic stenosis) No history of: CA, Pacemaker Neurology: History of: Cerebrovascular Accident, Peripheral Neuropathy No history of: Seizures, TIA Endocrine: History of: Diabetes Mellitus (IDDM), Diabetes Mellitus (NIDDM), Dyslipidemia, Thyroid Disorder Respiratory: History of: Obstructive Sleep Apnea No history of: Pulmonary Hypertension (Untreated) Renal: History of: Renal Problems (Chronic renal insufficiency) Genitourinary: History of: Prostate Problems Gastrointestinal: History of: GERD No history of: Gastrointestinal Bleed Musculoskeletal: History of: Musculoskeletal Problems (Osteoarthritis) Other: No history of: Cancer - Surgical History Cardiac Surgeries: Sugical HX of: Cardiac Catheterization (Mid RCA stent 2 in 2006), Carotid Endarterectomy Neurologic Surgeries: Patient denies: Neurologic Surgery HEENT Surgeries: Surgical HX of: Carotid Endarterectomy Abdominal Surgeries: Surgical HX of: Appendectomy Orthopedic Surgeries: Patient denies;: Implanted Devices - Family History Family History: Reports;: Family Diabetes, Family Hypertension Denies;: Family Heart Disease - Social History Smoking Status: Former smoker Frequency of Alcohol Use: None Type of Drug Use: None Results - Labs CBC & BMP: 01/31/17 05:54 01/31/17 05:54 Lab Results: I have reviewed the past 24 hour labs Quality Measures - Stroke Symptom Onset Unknown: No
[2017-02-01] MEDS: GABAPENTIN 300 MG CAPSULE PO SCH (21:17)
[2017-02-02] MEDS ORDERED: cloNIDine 0.1 MG TABLET PO PRN (08:36)
--- NOTE | 2017-02-02 09:28 | Physician Query Form ---
CLICK EDIT DOCUMENT TO SELECT QUERY ANSWER --> OK --> SIGN Sabina Blackwell RN, CCDS Certified Clinical Steam Presser W) [phone] (f) [phone] [email or web address] PROVIDERS: Make your selection(s) from the choices in EACH section by typing an "x" and enter comments in the comment section. Please use your independent medical judgment in providing your response. This request does not imply that any particular answer is desired or expected. CLINICAL INDICATORS: (Providers should not edit this section) The medical record indicates that the patient was admitted with hypotension, creatinine of 2.20 on the 9th that has decreased to 1.90 on the , GFR of 33 on the 9th that has increased to 40# on the and the patient was placed on IVF's. Clarify which of the following most accurately represents the patient's renal status: ( ) Acute kidney injury (non-traumatic) ( ) Acute renal failure (x ) Acute renal failure with underlying Chronic Kidney Disease (CKD) - please provide stage below ( ) Acute renal failure with pathological renal lesion ( ) Acute renal failure with necrosis ( ) tubular ( ) medullary ( ) cortical ( ) CKD - please provide stage below ( ) End Stage Renal Disease ( ) Acute interstitial nephritis ( ) Hepatorenal syndrome ( ) Other, please specify: ( ) Clinically unable to determine Chronic Kidney Disease Stages Source: National Kidney Disease Foundation ( ) Stage I (eGFR > or = 90) ( ) Stage II (eGFR 60 - 89) ( x) Stage III (eGFR 30 - 59) ( ) Stage IV (eGFR 15 - 29) ( ) Stage V (eGFR < 15 or dialysis) COMMENTS: PLEASE ALSO DOCUMENT RESPONSE IN PROGRESS NOTES AND/OR DISCHARGE SUMMARY Use of terms such as suspected, likely, or probable (associated with a specific diagnosis that is being evaluated, monitored, or treated as if it exists) are acceptable and can be restated in the discharge summary if not ruled out. MTDD
[2017-02-02] MEDS: INSULIN LISPRO 100 UNIT/ML SUBCUT SCH ×2 (09:53→18:02)
[2017-02-02] MEDS: SODIUM CHLORIDE 0.9% 1,000 ML IV SCH (09:54)
[2017-02-02] MEDS: ASPIRIN EC 81 MG TABLET PO SCH (10:15)
[2017-02-02] MEDS: CIPROFLOXACIN 500 MG TABLET PO SCH ×2 (10:15→20:47)
[2017-02-02] MEDS: ENOXAPARIN 40 MG/0.4 ML SYRINGE SUBCUT SCH (10:16)
[2017-02-02] MEDS: POLYETHYLENE GLYCOL POWDER 17 GM PACK PO SCH (10:17)
[2017-02-02] MEDS: MIDODRINE 5 MG TABLET PO SCH ×3 (10:18→20:48)
[2017-02-02] MEDS: LEVOTHYROXINE 75 MCG TABLET PO SCH (10:19)
[2017-02-02] MEDS: PANTOPRAZOLE 40 MG TABLET PO SCH (10:19)
[2017-02-02] MEDS: buPROPion 75 MG TABLET PO SCH ×2 (10:20→20:47)
--- NOTE | 2017-02-02 15:57 | Cardiology Progress Note ---
Gamaliel Crocker April RN, am scribing for, and in the presence of, Clarence Martinez MD 15:57. Assessment and Plan (1) Syncope and collapse Status: Acute Assessment and plan: He has been restarted on Midodrine 2.5 mg p.o. 3 times daily. No further episodes. Current Visit: No (2) Hypotension Status: Chronic Current Visit: Yes (3) Debility Status: Chronic Current Visit: Yes (4) Aortic stenosis, moderate Status: Chronic Current Visit: Yes (5) Diabetes Status: Chronic Assessment and plan: Hospitalist is managing. Current Visit: Yes (6) QUINCY (obstructive sleep apnea) Status: Chronic Current Visit: Yes (7) Orthostatic hypotension Status: Resolved Assessment and plan: Lisinopril is being held. He has been started on Midodrine. Current Visit: No (8) Urinary tract infection Status: Acute Assessment and plan: He was started on Macrobid. Current Visit: Yes Qualifiers: Urinary tract infection type: acute cystitis Hematuria presence: without hematuria Qualified Code(s): N30.00 - Acute cystitis without hematuria (9) Hypertension Status: Chronic Assessment and plan: Blood pressures have been elevated. We need to get these down some without lowering them too much. We will start him on clonidine 0.1 mg every hour as needed for systolic greater than 170 and diastolic greater than 95. Current Visit: Yes Cardiology - PN: Subj Interval history: Floor Inspector: Dr. Natarajan Summary: Mr. Badillo is a 81 year old male who presented January 30 via EMS for a witnessed episode of confusion and a reported BP 70/30. Five weeks ago patient began having these episodes that included transient confusion, unresponsive to verbal stimuli, incoherent mumbling followed by hypotension. These episodes were witnessed by family members and the patient's blood pressure was checked after each episode. Systolic blood pressures as low as 50 were reported. Family states that after patients mental status improved, his blood pressure would increase to over 200mHg. Family also states that during episodes patient would become very pale and sweaty. They denied any jerking, repetitive movements, deviated gazes, oral trauma, or bowel or bladder incontinence. When these episodes started patient was taken to [place] where he was admitted for a cardiac workup. An Echo (12/2016) revealed , mitral and tricuspid regurgitation, and an EF 55-60%. Patient was discharged home and wanted to get a second opinion by Dr. Natarajan. Patient saw Dr. Natarajan in clinic where a Holter monitor was placed. Patient was to wear monitor until Feb 16. On the way home from Dr. Natarajan's clinic the patient had another episode but it was before the Holter monitor was activated. Family brought him to our ER where he was admitted with neurology and cardiology consultations. Cardiology changed medications including adding Midodrine. Patient received a sleep study that revealed an event index of >40 with significant oxygen desaturation and an EEG that showed slowing. Patient seemed to improve and was discharged to [facility] swing bed program for deconditioning. He was discharged home January 29. On January 30 he had another episode as described as above and patient was brought to our ER. EKG showed NSR, Troponin elevated, elevated creatinine, and a UTI. Patient will be admitted for neurology and cardiology consult. Holter monitor will need to be interrogated. Midodrine will be restarted for BP support. SSI insulin will be initiated for glucose control. Sleep services will be consulted for assistance with nightly C-pap while inpatient. Physical therapy will be consulted to continue improvement of conditioning. Patient will be placed on Macrobid for UTI and urine cultures sent. Other home medications will be restarted once confirmed. His noted that he did not have any episodes while he was at swing bed. However, once he is discharged, she went to her local pharmacy and did not have a prescription for the midodrine Thus, he did not take in the midodrine for more than 24 hours then had another episode , just like it had previously. When he had been on the midodrine he did not have any of these episodes. February 01, 2017: Mr. Badillo is seen resting in bed no acute distress. He denies any chest pain, shortness of breath, palpitations, dizziness. He denies having any further episodes of syncope or near syncope. He is asking when he can go home. Troponins have been elevated at 0.524, 0.69, and 0.467. This however is in light of elevated creatinine, it was 2.2 on admission and 1.9 yesterday. mold yarn supervisor currently shows sinus rhythm with heart rates in the 70s. February 02, 2017: Mr. Badillo is seen resting in bed in no acute distress. His blood pressures have been elevated throughout the night. We will start him on clonidine 0.1 mg every hour as needed systolic blood pressure greater than 170 and systolic greater than 95. Hopefully this will lower his blood pressure some but not too much. He denies any chest pain, shortness of breath, palpitations, dizziness, or syncope. mold yarn supervisor shows sinus rhythm with heart rates in the 60s. I have discussed in detail the particulars of this case and I have examined the patient and reviewed the patient's chart both current and old. I was directly involved in the patient's evaluation and management and I completely agree with Gunjan Alston RN regarding this patient's evaluation and treatment plan. Exam (Progress Note) - Constitutional Vitals: Period Temp Pulse Resp BP Sys/Zurita Pulse Ox Last 24 Hr 97.1 F-98.1 F 67-106 18-22 141-196/77-124 18- Exam: General appearance: no acute distress, over weight - Head Head exam: Absent: abrasion, hematoma - Eye Eye exam: Absent: periorbital swelling, laceration to eyelids - Neck Neck exam: Absent: lymphadenopathy, tenderness - Respiratory Respiratory exam: Present: clear to auscultation bilaterally. Absent: accessory muscle use, chest wall tenderness - Cardiovascular Cardiovascular exam: Present: regular rate and rhythm. Absent: rubs - GI/Abdominal GI/Abdominal exam: Present: normal bowel sounds, soft. Absent: distended, tenderness - Extremities Exam Extremities exam: Absent: calf tenderness, edema - Neurological Exam Neurological exam: Present: alert, oriented X3 - Psychiatric Psychiatric exam: Present: normal affect, normal mood - Skin Skin exam: Present: warm, dry Result/EKG - Labs CBC & BMP: 01/31/17 05:54 01/31/17 05:54 Lab Results: I have reviewed the past 24 hour labs Labs: Laboratory Results - last 24 hr 02/01/17 02/01/17 02/01/17 11:35 15:24 19:53 POC Glucose 179 H 153 H 165 H 02/02/17 07:38 POC Glucose 145 H - EKG EKG results: interpreted by me EKG shows: sinus rhythm Quality Measures - Stroke Symptom Onset Unknown: No I, Clarence Martinez MD, personally performed the services described in this documentation, ascribed by Alston,Gunjan, RN in my presence, and it is both accurate and complete .
--- NOTE | 2017-02-02 16:15 | Hospitalist Progress Note ---
Hospitalist: Subjective Interval history: Patient is awake and comfort comfortable Exam - Constitutional Vitals: Period Temp Pulse Resp BP Sys/Zurita Pulse Ox Last 24 Hr 97.1 F-98.0 F 56-70 16-22 156-196/71-124 Exam: General: [No Acute Distress] HEENT: [Normocephalic, atraumatic, Extra ocular movements intact] Neck: [Supple, No JVD] Chest: [Clear to auscultation B/L] CV: [S1 + S2 audible without murmur, gallop or rub] Abd: [soft, NT, Non-distended, BS +] Ext: [No edema] Skin: [No purpura, bruising or rash] Rheumatologic: [No Joint deformities] Neurologic: [Awake and alert] Results - Labs CBC & BMP: 01/31/17 05:54 01/31/17 05:54 - Impressions Assessment and Plan: (1) Syncope Status: Acute Assessment and plan: This likely due to hypotension, blood pressure has improved with midodrine 2.5 mg p.o. 3 times daily. Neurology has signed off Current Visit: No (2) Chronic orthostatic hypotension Status: Chronic Current Visit: Yes (3) Debility Status: Chronic Current Visit: Yes (4) Aortic stenosis, moderate Status: Chronic Current Visit: Yes (5) Diabetes mellitus-2 Status: Chronic Assessment and plan: This is controlled Current Visit: Yes (6) QUINCY (obstructive sleep apnea) Status: Chronic Current Visit: Yes (7) Urinary tract infection, POA Status: Acute Assessment and plan: Urine cultures growing gram-positive cocci, he is on Macrobid, follow-up culture Current Visit: Yes (8) Essential hypertension Status: Chronic Current Visit: Yes Blood pressure was elevated due to Midodrine, he is on as needed clonidine Quality Measures - Stroke Symptom Onset Unknown: No
[2017-02-02] MEDS: amLODIPine 10 MG TABLET PO SCH (18:06)
[2017-02-02] MEDS: GABAPENTIN 300 MG CAPSULE PO SCH (20:47)
[2017-02-03] MEDS: MIDODRINE 5 MG TABLET PO SCH ×2 (09:35→15:00)
[2017-02-03] MEDS: buPROPion 75 MG TABLET PO SCH (09:35)
[2017-02-03] MEDS: PANTOPRAZOLE 40 MG TABLET PO SCH (09:35)
[2017-02-03] MEDS: ASPIRIN EC 81 MG TABLET PO SCH (09:35)
[2017-02-03] MEDS: CIPROFLOXACIN 500 MG TABLET PO SCH (09:35)
[2017-02-03] MEDS: LEVOTHYROXINE 75 MCG TABLET PO SCH (09:35)
[2017-02-03] MEDS: amLODIPine 10 MG TABLET PO SCH (09:35)
[2017-02-03] MEDS: INSULIN LISPRO 100 UNIT/ML SUBCUT SCH (09:35)
[2017-02-03] MEDS: POLYETHYLENE GLYCOL POWDER 17 GM PACK PO SCH (09:38)
[2017-02-03] MEDS: ENOXAPARIN 40 MG/0.4 ML SYRINGE SUBCUT SCH (09:38)
--- NOTE | 2017-02-03 12:08 | Cardiology Progress Note ---
Gamaliel Crocker April, RN, am scribing for, and in the presence of, Clarence Martinez MD 12:08. Assessment and Plan (1) Syncope and collapse Status: Acute Assessment and plan: He has been restarted on Midodrine 2.5 mg p.o. 3 times daily. No further episodes. Current Visit: No (2) Hypotension Status: Chronic Current Visit: Yes (3) Debility Status: Chronic Current Visit: Yes (4) Aortic stenosis, moderate Status: Chronic Current Visit: Yes (5) Diabetes Status: Chronic Assessment and plan: Hospitalist is managing. Current Visit: Yes (6) QUINCY (obstructive sleep apnea) Status: Chronic Current Visit: Yes (7) Orthostatic hypotension Status: Resolved Assessment and plan: Lisinopril is being held. He has been started on Midodrine. Current Visit: No (8) Urinary tract infection Status: Acute Assessment and plan: He has been started on p.o. Cipro. Current Visit: Yes Qualifiers: Urinary tract infection type: acute cystitis Hematuria presence: without hematuria Qualified Code(s): N30.00 - Acute cystitis without hematuria (9) Hypertension Status: Chronic Assessment and plan: Blood pressures have improved after we start him on clonidine. We will plan to continue this at discharge on an as-needed basis. We will instruct him not to stand for an hour after taking it. Current Visit: Yes Cardiology - PN: Subj Interval history: Psychopaedic Nurse: Dr. Natarajan Summary: Mr. Badillo is a 81 year old male who presented January 30 via EMS for a witnessed episode of confusion and a reported BP 70/30. Five weeks ago patient began having these episodes that included transient confusion, unresponsive to verbal stimuli, incoherent mumbling followed by hypotension. These episodes were witnessed by family members and the patient's blood pressure was checked after each episode. Systolic blood pressures as low as 50 were reported. Family states that after patients mental status improved, his blood pressure would increase to over 200mHg. Family also states that during episodes patient would become very pale and sweaty. They denied any jerking, repetitive movements, deviated gazes, oral trauma, or bowel or bladder incontinence. When these episodes started patient was taken to [place] where he was admitted for a cardiac workup. An Echo (12/2016) revealed , mitral and tricuspid regurgitation, and an EF 55-60%. Patient was discharged home and wanted to get a second opinion by Dr. Natarajan. Patient saw Dr. Natarajan in clinic where a Holter monitor was placed. Patient was to wear monitor until Feb 16. On the way home from Dr. Natarajan's clinic the patient had another episode but it was before the Holter monitor was activated. Family brought him to our ER where he was admitted with neurology and cardiology consultations. Cardiology changed medications including adding Midodrine. Patient received a sleep study that revealed an event index of >40 with significant oxygen desaturation and an EEG that showed slowing. Patient seemed to improve and was discharged to [facility] swing bed program for deconditioning. He was discharged home January 29. On January 30 he had another episode as described as above and patient was brought to our ER. EKG showed NSR, Troponin elevated, elevated creatinine, and a UTI. Patient will be admitted for neurology and cardiology consult. Holter monitor will need to be interrogated. Midodrine will be restarted for BP support. SSI insulin will be initiated for glucose control. Sleep services will be consulted for assistance with nightly C-pap while inpatient. Physical therapy will be consulted to continue improvement of conditioning. Patient will be placed on Macrobid for UTI and urine cultures sent. Other home medications will be restarted once confirmed. His noted that he did not have any episodes while he was at swing bed. However, once he is discharged, she went to her local pharmacy and did not have a prescription for the midodrine Thus, he did not take in the midodrine for more than 24 hours then had another episode , just like it had previously. When he had been on the midodrine he did not have any of these episodes. February 01, 2017: Mr. Badillo is seen resting in bed no acute distress. He denies any chest pain, shortness of breath, palpitations, dizziness. He denies having any further episodes of syncope or near syncope. He is asking when he can go home. Troponins have been elevated at 0.524, 0.69, and 0.467. This however is in light of elevated creatinine, it was 2.2 on admission and 1.9 yesterday. classroom monitor currently shows sinus rhythm with heart rates in the 70s. February 02, 2017: Mr. Badillo is seen resting in bed in no acute distress. His blood pressures have been elevated throughout the night. We will start him on clonidine 0.1 mg every hour as needed systolic blood pressure greater than 170 and systolic greater than 95. Hopefully this will lower his blood pressure some but not too much. He denies any chest pain, shortness of breath, palpitations, dizziness, or syncope. classroom monitor shows sinus rhythm with heart rates in the 60s. February 03, 2017: Mr. Badillo is seen resting in bed this morning. He continues to ask what he is getting up to go home. He did get a dose of clonidine yesterday, and his blood pressures have improved. This morning it was 141/78. We will have him continue clonidine as needed at discharge. He denies any chest pain, shortness of breath, palpitations, dizziness, or episodes of syncope. classroom monitor currently shows sinus rhythm with heart rates in the 60s. We will check a CBC and CMP in the morning. I have discussed in detail the particulars of this case and I have examined the patient and reviewed the patient's chart both current and old. I was directly involved in the patient's evaluation and management and I completely agree with Gunjan Alston RN regarding this patient's evaluation and treatment plan. Exam (Progress Note) - Constitutional Vitals: Period Temp Pulse Resp BP Sys/Zurita Pulse Ox Last 24 Hr 97.2 F-97.8 F 56-84 16-20 135-163/67-81 89-95 Exam: General appearance: no acute distress, over weight - Head Head exam: Absent: abrasion, hematoma - Eye Eye exam: Absent: periorbital swelling, laceration to eyelids - Neck Neck exam: Absent: lymphadenopathy, tenderness - Respiratory Respiratory exam: Present: clear to auscultation bilaterally. Absent: accessory muscle use, chest wall tenderness - Cardiovascular Cardiovascular exam: Present: regular rate and rhythm. Absent: rubs - GI/Abdominal GI/Abdominal exam: Present: normal bowel sounds, soft. Absent: distended, tenderness - Extremities Exam Extremities exam: Absent: calf tenderness, edema - Neurological Exam Neurological exam: Present: alert, oriented X3 - Psychiatric Psychiatric exam: Present: normal affect, normal mood - Skin Skin exam: Present: warm, dry Result/EKG - Labs CBC & BMP: 01/31/17 05:54 01/31/17 05:54 Lab Results: I have reviewed the past 24 hour labs Labs: Laboratory Results - last 24 hr 02/02/17 02/02/17 02/02/17 11:49 15:21 19:34 POC Glucose 147 H 147 H 185 H 02/03/17 07:33 POC Glucose 150 H - EKG EKG results: interpreted by me EKG shows: sinus rhythm Quality Measures - Stroke Symptom Onset Unknown: No I, Clarence Martinez MD, personally performed the services described in this documentation, ascribed by Gunjan Alston RN in my presence, and it is both accurate and complete .
--- NOTE | 2017-02-03 13:27 | Discharge Summary ---
Hospital Course - Hospital Course Hospital Course: 81 year old male that presented to ER to via EMS for a witnessed episode of confusion and a reported BP 70/30. Five weeks ago patient began having these episodes that included transient confusion, unresponsive to verbal stimuli, incoherent mumbling followed by hypotension. These episodes were witnessed by family members and the patient's blood pressure was checked after each episode. Systolic blood pressures as low as 50 were reported. Family stated that after patients mental status improved, his blood pressure would increase to over 200mHg. Family also states that during episodes patient would become very pale and sweaty. They denied any jerking, repetitive movements, deviated gazes, oral trauma, or bowel or bladder incontinence. When these episodes started patient was taken to [place] where he was admitted for a cardiac workup. An Echo (12/2016) revealed , mitral and tricuspid regurgitation, and an EF 55-60%. Patient was discharged home and wanted to get a second opinion by Dr. Natarajan. Patient saw Dr. Natarajan in clinic where a Holter monitor was placed. Patient was to wear monitor until Feb 16. On the way home from Dr. Natarajan's clinic the patient had another episode but it was before the Holter monitor was activated. Family brought him to our ER where he was admitted with neurology and cardiology consultations. Cardiology changed medications including adding Midodrine. Patient received a sleep study that revealed an event index of >40 with significant oxygen desaturation and an EEG that showed slowing. Patient seemed to improve and was discharged to [facility] swing bed program for deconditioning. He was discharged home yesterday. On the drip prior to admission, he had another episode as described as above and patient was brought to our ER. EKG showed NSR, Troponin elevated, elevated creatinine, and and also had a UTI that was present on admission. Subsequent urine culture grew Enterococcus faecalis. Patient was admitted admitted and neurology and cardiology consulted. Holter monitor will need to be interrogated. Midodrine was restarted for BP support. He was on Macrobid for his urine tract infection. Cardiology was following and agreed with starting midodrine 2.5 mg p.o. 3 times daily but his blood pressure continued to go very high, requiring as needed clonidine and it on Norvasc. With Norvasc his blood pressure is better controlled. He is otherwise feeling much much better and has no further hypotensive or syncopal episodes while in the hospital. His confusion and a syncopal or presyncopal episodes were felt to be due to hypotension. He does have problem with severe orthostatic hypotension. Patient awake and alert tolerating diet and is felt that he has reached maximal hospital benefit and being discharged back to home today. He will continue follow-up with PCP and his consultants. Discharge time 35 minutes - Time spent with patient Time with patient DS: Greater than 30 minutes Diagnosis - Discharge Diagnosis (1) Urinary tract infection Status: Resolved (2) Hypotension Status: Resolved Discharge Plan - Discharge Data Condition at Discharge: Stable Discharge Diet: advance to your usual diet Activity: resume usual activities as tolerated Hygiene: no restrictions Weight Bearing at Discharge: full weight bearing Driving: no restrictions Contact your physician if you experience:: fever over 101, Shortness of breath - Discharge Medications New amLODIPine [Norvasc] 10 mg PO DAILY #30 tablet Midodrine [Proamatine] 2.5 mg PO TID #90 tablet Continue Atorvastatin [Lipitor] 20 mg PO DAILY PRN PRN Reason: Dizziness Levothyroxine Sodium 75 mcg PO DAILY Acetaminophen Tab [Tylenol Tab] 650 mg PO Q4H PRN tablet PRN Reason: Fever, Headache, Mild Pain buPROPion [Wellbutrin] 75 mg PO BID tablet Docusate Sodium Cap [Colace Cap] 100 mg PO BID PRN capsule PRN Reason: Constipation Gabapentin Cap/Tab [Neurontin Cap/Tab] 600 mg PO BEDTIME capsule Glucagon 1 mg IM PRN PRN vial PRN Reason: Hypoglycemia w/o IV access HYDROcodone/ACETAMIN 5-325 [[place] 5-325] 1 tablet PO Q4H PRN tablet PRN Reason: Pain Mild (1-3) Insulin Lispro [HumaLOG] See Protocol SUBCUT ACHS unit Insulin Lispro [HumaLOG] 14 unit SUBCUT AC BREAKFAST unit Midodrine [Proamatine] 2.5 mg PO TID tablet Polyethylene Glycol Powder [Miralax] 17 gm PO DAILY Anastrozole 1 mg PO DIRECTED Aspirin EC Tab 81 mg PO DAILY tablet Insulin Lispro [HumaLOG] 12 unit SUBCUT AC SUPPER unit Discontinued Lisinopril 5 mg PO DAILY - Follow Up or Referral Follow Up: No PCP,. [Primary Care Provider] - 1 Week - Forms/Instructions Exam - Constitutional Vitals: Period Temp Pulse Resp BP Sys/Zurita Pulse Ox Last 24 Hr 97.2 F-98 F 56-84 16-20 100-160/60-81 89-95 Exam: General: No Acute Distress HEENT: Normocephalic, atraumatic, Extra ocular movements intact Neck: Supple, No JVD Chest: Clear to auscultation B/L CV: S1 + S2 audible without murmur, gallop or rub Abd: soft, NT, Non-distended, BS + Ext: No edema Skin: No purpura, bruising or rash Rheumatologic: No Joint deformities Neurologic: Awake and alert Discharge Results Procedures and tests throughout hospitalization: Pending Orders 02/04/17 04:00 Basic Metabolic Panel IN AM Comp Blood Count Auto Diff IN AM Labs on day of discharge: Labs from last 24 hours 02/03/17 02/03/17 02/02/17 11:51 07:33 19:34 POC Glucose 167 H 150 H 185 H 02/02/17 15:21 POC Glucose 147 H DS: Provider Date of admission: 01/30/17 22:14 Primary care physician: . No PCP Attending physician on admission: Bora Burns MD Consults: 01/31/17 00:13 Consult to Physical Therapy [CONS] Routine Reason for Physical Therapy: Evaluate and Treat Consult to Physician [CONS] Routine Comment: AMS; hypotension Consulting Provider: Graeme Lewis Date Notified: 02/01/17 Time Notified: 09:48 Consult Notification Comment: called to Dr Lewis at 0836 LEFT MESSAGE TO CALL ME BACK Consult to Physician [CONS] Routine Comment: AMS; hypotension Consulting Provider: Froilan Anthony Person Notified: TJ -Ronald Date Notified: 01/31/17 Time Notified: 08:31 01/31/17 02:28 Consult to Physician [CONS] Routine Comment: QUINCY Consulting Provider: Caridad Montiel Person Notified: CHITO Date Notified: 02/01/17 Time Notified: 09:36 Discharging clinician: Hernán Ryan MD
[2017-02-10 16:25] VITALS: BP 141/70
== END 2017-02-03 16:20 | disposition home or self-care (01) | DRG 312 ==
LOC: EDUNIT# → EDBD → N.ED 19:37 → N.EDINP 22:14 → SUATTDRO 22:14 → N.5E 23:05
PROVIDERS: ADMIT Family Medicine; ATTEND Hospitalist

== ENCOUNTER 2017-03-08 10:21 | Inpatient (IN) ==
[2017-03-08 11:30] LABS: Basophils # 0.2 10*3/uL (0.0-0.2); Basophils % 0.9 % (0.0-0.8); Eosinophils # 0.1 10*3/uL (0.0-0.87); Eosinophils % 0.6 % (0.00-10.9); Hematocrit 47.2 VOL% (42.0-52.0); Hemoglobin 15.8 GM/DL (14.0-18.0); Immature Granulocytes Absolute 0.22 #; Lymphocytes # 1.3 10*3/uL (1.4-4.0); Mean Corpuscular HGB Conc 33.5 GM/DL (32-36); Mean Corpuscular Hemoglobin 30 PG (27-34); Mean Corpuscular Volume 88.2 FL (87-102); Mean Platelet Volume 11.4 FL (9.6-12.0); Monocytes # 1.6 10*3/uL (0.11-0.8); Monocytes % 7.2 % (1.7-12.7); Neutrophils # 18.4 10*3/uL (1.4-7.4); Neutrophils % 84.3 % (38.7-73.9); Platelet Count 260 T/CUMM (130-400); Red Blood Count 5.35 MC/CUMM (3.8-5.5); Red Cell Distribution Width 14.1 % (9.3-17.3); White Blood Count 21.8 T/CUMM (4-12)
[2017-03-08] MEDS ORDERED: LEVOFLOXACIN INJ 500 MG in PREMIX 1 EACH IV STA (11:39)
[2017-03-08] MEDS ORDERED: LEVOFLOXACIN INJ 100 ML IV ONE (11:52)
[2017-03-08 12:05] LABS: Albumin 3.8 G/DL (3.4-5.0); Bilirubin,Total 0.7 MG/DL (0.2-1.0); Calcium 9.7 MG/DL (8.5-10.1); Osmolality,Calculated 274.1 MOS/KG (273-304); Potassium 4.1 MMOL/L (3.5-5.1); Total Protein 8.2 G/DL (6.4-8.3)
[2017-03-08 12:19] LABS: Hypochromasia 1+; Lymphocytes 5 % (20-55); Platelet Estimate Adequate; Segmented Neutrophils 89 % (50-85); Total Cells Counted 100
[2017-03-08] MEDS ORDERED: ALBUTEROL 2.5 MG/3 ML NEB RESP TX PRN (12:32)
[2017-03-08] MEDS ORDERED: cloNIDine 0.1 MG TABLET PO PRN (12:33)
[2017-03-08] MEDS ORDERED: DEXTROSE 50% 25 GM/50 ML VIAL IV PRN (12:35)
[2017-03-08] MEDS ORDERED: GLUCAGON 1 MG VIAL IM PRN (12:35)
[2017-03-08 12:40] LABS: Apearance,Urine CLEAR (Clear); Bilirubin,Urine Negative (Negative); Blood, Urine Small mg/dL (Negative); Glucose,Urine (UA) Negative (Negative); Ketones,Urine Negative (Negative); Mucus,Urine Occasional /LPF (Occasional); Nitrite,Urine Negative (Negative); Protein,Urine 100 MG/DL; RBC,Urine 1 /HPF (0-4); Squamous Epithelial Cell,Urine Occasional /HPF (0-10); Urine Color Yellow (Yellow); Urine Specific Gravity 1.012 (1.001-1.035); Urine Urobilinogen < 2.0 EU/DL (0.2-1.0); WBC,Urine 2 /HPF (0-6)
[2017-03-08] MEDS: ALBUTEROL/IPRATROPIUM 3 ML NEB RESP TX SCH ×2 (12:58→20:07)
[2017-03-08] MEDS ORDERED: SODIUM CHLORIDE 0.9% 2,600 ML IV ONE (14:30)
[2017-03-08] MEDS: VANCOMYCIN INJ 1,250 MG in SODIUM CHLORIDE 0.9% 250 ML IV SCH (14:57)
[2017-03-08] MEDS: MIDODRINE 5 MG TABLET PO SCH ×2 (14:58→22:48)
[2017-03-08 15:34] LABS: ABG Base Excess 2.5 MMOL/L (-2.5-2.5); ABG HCO3 26.6 MMOL/L (20-26); ABG Oxygen Saturation 96.8 % (95-100); ABG PCO2 39.5 MM HG (35-48); ABG PH 7.438 (7.35-7.45); ABG PO2 76.4 MM HG (80-95); ABG TCO2 23.1 MMOL/L (23-27); Allen Test Positive
[2017-03-08] MEDS ORDERED: SODIUM CHLORIDE 0.9% 1,000 ML IV SCH (16:00)
[2017-03-08] MEDS: INSULIN LISPRO 100 UNIT/ML SUBCUT SCH (16:48)
[2017-03-08] MEDS: GABAPENTIN 300 MG CAPSULE PO SCH (22:47)
[2017-03-08] MEDS: guaiFENesin/DM ER 600-30 MG TABLET PO SCH (22:47)
[2017-03-08] MEDS: buPROPion 75 MG TABLET PO SCH (22:49)
[2017-03-08] MEDS: INSULIN DEGLUDEC 60 UNIT SUBCUT SCH (22:54)
[2017-03-09] MEDS: ALBUTEROL/IPRATROPIUM 3 ML NEB RESP TX SCH ×4 (00:19→19:35)
[2017-03-09] MEDS: LEVOTHYROXINE 75 MCG TABLET PO SCH (06:50)
[2017-03-09 07:04] LABS: Basophils # 0.2 10*3/uL (0.0-0.2); Eosinophils # 0.2 10*3/uL (0.0-0.87); Eosinophils % 1.3 % (0.00-10.9); Hematocrit 40.9 VOL% (42.0-52.0); Hemoglobin 13.5 GM/DL (14.0-18.0); Immature Granulocytes % 0.6 %; Lymphocytes # 2.7 10*3/uL (1.4-4.0); Lymphocytes % 16.3 % (21.2-54.2); Mean Corpuscular Hemoglobin 30 PG (27-34); Mean Corpuscular Volume 89.9 FL (87-102); Mean Platelet Volume 11.8 FL (9.6-12.0); Monocytes # 1.9 10*3/uL (0.11-0.8); Monocytes % 11.1 % (1.7-12.7); Neutrophils # 11.6 10*3/uL (1.4-7.4); Neutrophils % 69.7 % (38.7-73.9); Platelet Count 228 T/CUMM (130-400); Red Blood Count 4.55 MC/CUMM (3.8-5.5); Red Cell Distribution Width 14.4 % (9.3-17.3); White Blood Count 16.6 T/CUMM (4-12)
[2017-03-09 07:43] LABS: Albumin 2.7 G/DL (3.4-5.0); Bilirubin,Total 1.1 MG/DL (0.2-1.0); Calcium 8.8 MG/DL (8.5-10.1); Osmolality,Calculated 277.5 MOS/KG (273-304); Total Protein 5.9 G/DL (6.4-8.3)
[2017-03-09] MEDS: buPROPion 75 MG TABLET PO SCH ×2 (09:07→21:45)
[2017-03-09] MEDS: MIDODRINE 5 MG TABLET PO SCH ×3 (09:07→21:45)
[2017-03-09] MEDS: amLODIPine 10 MG TABLET PO SCH (09:07)
[2017-03-09] MEDS: FINASTERIDE 5 MG TABLET PO SCH (09:07)
[2017-03-09] MEDS: guaiFENesin/DM ER 600-30 MG TABLET PO SCH ×2 (09:07→21:46)
[2017-03-09] MEDS: ASPIRIN EC 81 MG TABLET PO SCH (09:07)
[2017-03-09] MEDS: ATORVASTATIN 20 MG TABLET PO SCH (09:08)
[2017-03-09] MEDS: LEVOFLOXACIN INJ 750 MG in PREMIX 1 EACH IV SCH (09:08)
[2017-03-09] MEDS: INSULIN LISPRO 100 UNIT/ML SUBCUT SCH ×3 (09:10→17:04)
[2017-03-09] MEDS: POLYETHYLENE GLYCOL POWDER 17 GM PACK PO PRN (12:33)
[2017-03-09] MEDS: VANCOMYCIN INJ 1,250 MG in SODIUM CHLORIDE 0.9% 250 ML IV SCH (15:09)
[2017-03-09] MEDS ORDERED: ONDANSETRON 4 MG/2 ML VIAL IV PRN (18:13)
[2017-03-09] MEDS: GABAPENTIN 300 MG CAPSULE PO SCH (21:44)
[2017-03-09] MEDS: INSULIN DEGLUDEC 60 UNIT SUBCUT SCH (21:48)
[2017-03-10] MEDS: ALBUTEROL/IPRATROPIUM 3 ML NEB RESP TX SCH ×4 (00:50→19:04)
[2017-03-10] MEDS: LEVOTHYROXINE 75 MCG TABLET PO SCH (06:21)
[2017-03-10 07:01] LABS: Basophils # 0.2 10*3/uL (0.0-0.2); Basophils % 1.6 % (0.0-0.8); Eosinophils # 0.4 10*3/uL (0.0-0.87); Eosinophils % 3.5 % (0.00-10.9); Hematocrit 39.4 VOL% (42.0-52.0); Hemoglobin 13.1 GM/DL (14.0-18.0); Immature Granulocytes % 0.9 %; Immature Granulocytes Absolute 0.09 #; Lymphocytes # 2.3 10*3/uL (1.4-4.0); Lymphocytes % 22.1 % (21.2-54.2); Mean Corpuscular HGB Conc 33.2 GM/DL (32-36); Mean Corpuscular Hemoglobin 29 PG (27-34); Mean Corpuscular Volume 88.5 FL (87-102); Mean Platelet Volume 11.4 FL (9.6-12.0); Monocytes # 1.2 10*3/uL (0.11-0.8); Monocytes % 10.9 % (1.7-12.7); Neutrophils # 6.4 10*3/uL (1.4-7.4); Platelet Count 233 T/CUMM (130-400); Red Blood Count 4.45 MC/CUMM (3.8-5.5); White Blood Count 10.5 T/CUMM (4-12)
[2017-03-10 07:29] LABS: Albumin 2.7 G/DL (3.4-5.0); Calcium 8.9 MG/DL (8.5-10.1); Potassium 4.1 MMOL/L (3.5-5.1); Total Protein 6.2 G/DL (6.4-8.3)
[2017-03-10] MEDS: ATORVASTATIN 20 MG TABLET PO SCH (09:29)
[2017-03-10] MEDS: amLODIPine 10 MG TABLET PO SCH (09:30)
[2017-03-10] MEDS: FINASTERIDE 5 MG TABLET PO SCH (09:30)
[2017-03-10] MEDS: buPROPion 75 MG TABLET PO SCH ×2 (09:30→21:24)
[2017-03-10] MEDS: MIDODRINE 5 MG TABLET PO SCH ×3 (09:30→21:21)
[2017-03-10] MEDS: ASPIRIN EC 81 MG TABLET PO SCH (09:30)
[2017-03-10] MEDS: guaiFENesin/DM ER 600-30 MG TABLET PO SCH ×2 (09:30→21:24)
[2017-03-10] MEDS: LEVOFLOXACIN INJ 750 MG in PREMIX 1 EACH IV SCH (09:47)
[2017-03-10] MEDS: INSULIN LISPRO 100 UNIT/ML SUBCUT SCH ×3 (10:11→16:45)
[2017-03-10] MEDS: POLYETHYLENE GLYCOL POWDER 17 GM PACK PO PRN (10:11)
[2017-03-10] MEDS: VANCOMYCIN INJ 1,250 MG in SODIUM CHLORIDE 0.9% 250 ML IV SCH (16:45)
[2017-03-10] MEDS: INSULIN DEGLUDEC 60 UNIT SUBCUT SCH (21:15)
[2017-03-10] MEDS: GABAPENTIN 300 MG CAPSULE PO SCH (21:24)
[2017-03-11] MEDS: ALBUTEROL/IPRATROPIUM 3 ML NEB RESP TX SCH ×4 (00:10→19:26)
[2017-03-11] MEDS: LEVOTHYROXINE 75 MCG TABLET PO SCH (06:14)
[2017-03-11] MEDS: FINASTERIDE 5 MG TABLET PO SCH (10:25)
[2017-03-11] MEDS: ASPIRIN EC 81 MG TABLET PO SCH (10:25)
[2017-03-11] MEDS: ATORVASTATIN 20 MG TABLET PO SCH (10:26)
[2017-03-11] MEDS: guaiFENesin/DM ER 600-30 MG TABLET PO SCH ×2 (10:26→20:44)
[2017-03-11] MEDS: INSULIN LISPRO 100 UNIT/ML SUBCUT SCH ×3 (10:26→17:08)
[2017-03-11] MEDS: MIDODRINE 5 MG TABLET PO SCH ×3 (10:26→20:45)
[2017-03-11] MEDS: buPROPion 75 MG TABLET PO SCH ×2 (10:26→20:45)
[2017-03-11] MEDS: amLODIPine 10 MG TABLET PO SCH (10:26)
[2017-03-11] MEDS: LEVOFLOXACIN INJ 750 MG in PREMIX 1 EACH IV SCH (10:34)
[2017-03-11] MEDS: VANCOMYCIN INJ 1,250 MG in SODIUM CHLORIDE 0.9% 250 ML IV SCH (15:58)
[2017-03-11] MEDS: POLYETHYLENE GLYCOL POWDER 17 GM PACK PO PRN (16:00)
[2017-03-11] MEDS: GABAPENTIN 300 MG CAPSULE PO SCH (20:45)
[2017-03-11] MEDS: INSULIN DEGLUDEC 60 UNIT SUBCUT SCH (20:46)
[2017-03-12] MEDS: ALBUTEROL/IPRATROPIUM 3 ML NEB RESP TX SCH ×4 (01:49→19:05)
[2017-03-12] MEDS: POLYETHYLENE GLYCOL POWDER 17 GM PACK PO PRN (05:11)
[2017-03-12] MEDS: LEVOTHYROXINE 75 MCG TABLET PO SCH (05:59)
[2017-03-12 06:17] LABS: Basophils # 0.1 10*3/uL (0.0-0.2); Basophils % 1.5 % (0.0-0.8); Eosinophils # 0.5 10*3/uL (0.0-0.87); Eosinophils % 5.5 % (0.00-10.9); Hemoglobin 14.1 GM/DL (14.0-18.0); Immature Granulocytes % 0.7 %; Immature Granulocytes Absolute 0.06 #; Lymphocytes # 1.7 10*3/uL (1.4-4.0); Lymphocytes % 20.3 % (21.2-54.2); Mean Corpuscular HGB Conc 32.8 GM/DL (32-36); Mean Corpuscular Hemoglobin 29 PG (27-34); Mean Corpuscular Volume 88.8 FL (87-102); Mean Platelet Volume 10.7 FL (9.6-12.0); Monocytes # 0.9 10*3/uL (0.11-0.8); Monocytes % 10.5 % (1.7-12.7); Neutrophils # 5.2 10*3/uL (1.4-7.4); Neutrophils % 61.5 % (38.7-73.9); Platelet Count 255 T/CUMM (130-400); Red Blood Count 4.84 MC/CUMM (3.8-5.5); Red Cell Distribution Width 13.6 % (9.3-17.3); White Blood Count 8.4 T/CUMM (4-12)
[2017-03-12 06:49] LABS: Calcium 8.9 MG/DL (8.5-10.1); Osmolality,Calculated 272.1 MOS/KG (273-304)
[2017-03-12] MEDS: ATORVASTATIN 20 MG TABLET PO SCH (08:13)
[2017-03-12] MEDS: ASPIRIN EC 81 MG TABLET PO SCH (08:13)
[2017-03-12] MEDS: INSULIN LISPRO 100 UNIT/ML SUBCUT SCH ×3 (08:13→16:50)
[2017-03-12] MEDS: LEVOFLOXACIN INJ 750 MG in PREMIX 1 EACH IV SCH (08:13)
[2017-03-12] MEDS: amLODIPine 10 MG TABLET PO SCH (08:13)
[2017-03-12] MEDS: buPROPion 75 MG TABLET PO SCH ×2 (08:13→20:50)
[2017-03-12] MEDS: FINASTERIDE 5 MG TABLET PO SCH (08:13)
[2017-03-12] MEDS: guaiFENesin/DM ER 600-30 MG TABLET PO SCH ×2 (08:13→20:50)
[2017-03-12] MEDS: MIDODRINE 5 MG TABLET PO SCH ×3 (08:13→20:50)
[2017-03-12] MEDS ORDERED: ANASTROZOLE 1 MG TABLET PO SCH (09:00)
[2017-03-12] MEDS: VANCOMYCIN INJ 1,250 MG in SODIUM CHLORIDE 0.9% 250 ML IV SCH (15:22)
[2017-03-12] MEDS: INSULIN DEGLUDEC 60 UNIT SUBCUT SCH (20:52)
[2017-03-12] MEDS: GABAPENTIN 300 MG CAPSULE PO SCH (20:52)
[2017-03-13] MEDS: ALBUTEROL/IPRATROPIUM 3 ML NEB RESP TX SCH ×4 (00:36→19:46)
[2017-03-13] MEDS: LEVOTHYROXINE 75 MCG TABLET PO SCH (05:48)
[2017-03-13] MEDS: INSULIN LISPRO 100 UNIT/ML SUBCUT SCH ×3 (07:47→16:17)
[2017-03-13] MEDS: ASPIRIN EC 81 MG TABLET PO SCH (08:20)
[2017-03-13] MEDS: buPROPion 75 MG TABLET PO SCH ×2 (08:20→20:59)
[2017-03-13] MEDS: MIDODRINE 5 MG TABLET PO SCH ×3 (08:20→20:59)
[2017-03-13] MEDS: POLYETHYLENE GLYCOL POWDER 17 GM PACK PO PRN (08:20)
[2017-03-13] MEDS: amLODIPine 10 MG TABLET PO SCH (08:21)
[2017-03-13] MEDS: FINASTERIDE 5 MG TABLET PO SCH (08:21)
[2017-03-13] MEDS: SULFAMETHOX/TRIMETHOPRIM 800-160 MG TABLET PO SCH ×2 (08:21→20:58)
[2017-03-13] MEDS: ATORVASTATIN 20 MG TABLET PO SCH (08:21)
[2017-03-13] MEDS: guaiFENesin/DM ER 600-30 MG TABLET PO SCH ×2 (08:28→20:58)
[2017-03-13] MEDS ORDERED: MAGNESIUM CITRATE 300 ML BOTTLE PO ONE ×2 (13:09→13:20)
[2017-03-13] MEDS: GABAPENTIN 300 MG CAPSULE PO SCH (20:59)
[2017-03-13] MEDS: INSULIN DEGLUDEC 60 UNIT SUBCUT SCH (21:01)
[2017-03-14] MEDS: ALBUTEROL/IPRATROPIUM 3 ML NEB RESP TX SCH ×2 (00:31→07:36)
[2017-03-14] MEDS: LEVOTHYROXINE 75 MCG TABLET PO SCH (06:42)
[2017-03-14] MEDS: MIDODRINE 5 MG TABLET PO SCH (08:32)
[2017-03-14] MEDS: INSULIN LISPRO 100 UNIT/ML SUBCUT SCH (08:32)
[2017-03-14] MEDS: ASPIRIN EC 81 MG TABLET PO SCH (08:32)
[2017-03-14] MEDS: FINASTERIDE 5 MG TABLET PO SCH (08:32)
[2017-03-14] MEDS: SULFAMETHOX/TRIMETHOPRIM 800-160 MG TABLET PO SCH (08:32)
[2017-03-14] MEDS: buPROPion 75 MG TABLET PO SCH (08:32)
[2017-03-14] MEDS: ATORVASTATIN 20 MG TABLET PO SCH (08:32)
[2017-03-14] MEDS: guaiFENesin/DM ER 600-30 MG TABLET PO SCH (08:32)
[2017-03-14] MEDS: amLODIPine 10 MG TABLET PO SCH (08:32)
[2017-03-14 08:35] VITALS: BP 119/61
== END 2017-03-14 09:38 | disposition home health service (06) | DRG 871 ==
LOC: N.ED 10:21 → N.EDINP 11:45 → SUATTDRO 11:45 → N.2E 13:58
PROVIDERS: ADMIT Family Medicine; ATTEND Internal Medicine Cardiovascular Disease

== ENCOUNTER 2017-07-20 17:30 | Inpatient (IN) ==
[2017-07-20] MEDS ORDERED: ASPIRIN 325 MG TABLET PO STA (18:17)
[2017-07-20] MEDS ORDERED: MORPHINE 2 MG/1 ML SYRINGE IV STA ×2 (18:17→19:36)
[2017-07-20] MEDS ORDERED: NITROGLYCERIN 2% OINT 1 INCH/GM PACK TOP STA (18:17)
[2017-07-20] MEDS ORDERED: ONDANSETRON 4 MG/2 ML VIAL IV STA ×2 (18:17→19:36)
[2017-07-20] MEDS ORDERED: NITROGLYCERIN 2% OINT 1 INCH/GM PACK TOP ONE (18:20)
[2017-07-20] MEDS ORDERED: ONDANSETRON 4 MG/2 ML VIAL ONE ×2 (18:20→19:36)
[2017-07-20] MEDS ORDERED: MORPHINE 2 MG/1 ML SYRINGE ONE ×2 (18:20→19:36)
[2017-07-20] MEDS ORDERED: ASPIRIN 325 MG TABLET ONE (18:20)
[2017-07-20 18:33] LABS: Basophils # 0.1 10*3/uL (0.0-0.2); Eosinophils % 0.1 % (0.00-10.9); Hemoglobin 15.8 GM/DL (14.0-18.0); Immature Granulocytes % 0.9 %; Immature Granulocytes Absolute 0.08 #; Lymphocytes % 11.2 % (21.2-54.2); Mean Corpuscular HGB Conc 33.6 GM/DL (32-36); Mean Corpuscular Hemoglobin 29 PG (27-34); Mean Corpuscular Volume 85.1 FL (87-102); Mean Platelet Volume 11.9 FL (9.6-12.0); Monocytes # 0.1 10*3/uL (0.11-0.8); Monocytes % 1.3 % (1.7-12.7); Neutrophils # 7.9 10*3/uL (1.4-7.4); Neutrophils % 85.5 % (38.7-73.9); Platelet Count 230 T/CUMM (130-400); Red Blood Count 5.52 MC/CUMM (3.8-5.5); Red Cell Distribution Width 14.9 % (9.3-17.3); White Blood Count 9.2 T/CUMM (4-12)
[2017-07-20 18:45] LABS: PT Patient Result 10.2 SECS
[2017-07-20 18:46] LABS: Albumin 3.8 G/DL (3.4-5.0); Bilirubin,Total 0.5 MG/DL (0.2-1.0); Calcium 9.4 MG/DL (8.5-10.1); Osmolality,Calculated 280.4 MOS/KG (273-304); Potassium 4.4 MMOL/L (3.5-5.1); Total Protein 7.6 G/DL (6.4-8.3)
[2017-07-20] MEDS ORDERED: MAGNESIUM SULF RIDER 2 GM in PREMIX 1 EACH IV STA (19:44)
[2017-07-20] MEDS ORDERED: ENOXAPARIN 100 MG/ML SYRINGE SUBCUT STA (19:45)
[2017-07-20] MEDS ORDERED: INSULIN REGULAR 100 UNIT/ML SUBCUT STA (19:51)
[2017-07-20] MEDS ORDERED: ENOXAPARIN 100 MG/ML SYRINGE SUBCUT ONE (19:52)
[2017-07-20] MEDS ORDERED: MAGNESIUM SULF RIDER 50 ML IV ONE (20:01)
[2017-07-20] MEDS ORDERED: INSULIN REGULAR 100 UNIT/ML ONE (20:03)
[2017-07-20] MEDS ORDERED: ACETAMINOPHEN 325 MG TABLET PO PRN (22:36)
[2017-07-20] MEDS ORDERED: GLUCAGON 1 MG VIAL IM PRN (22:36)
[2017-07-20] MEDS ORDERED: DEXTROSE 50% 25 GM/50 ML VIAL IV PRN (22:36)
[2017-07-20] MEDS ORDERED: MORPHINE 2 MG/1 ML SYRINGE IV PRN (22:36)
[2017-07-20] MEDS ORDERED: ALUM/MAG/SIMETH/LIDO VISC 1:1 30 ML BOTTLE PO ONE (23:00)
[2017-07-20] MEDS ORDERED: POLYETHYLENE GLYCOL POWDER 17 GM PACK PO PRN (23:08)
[2017-07-20] MEDS ORDERED: Insulin Degludec [Tresiba Flextouch U-200] SUBCUT SCH (23:08)
[2017-07-21] MEDS: GABAPENTIN 300 MG CAPSULE PO SCH ×2 (00:40→22:02)
[2017-07-21] MEDS: ATORVASTATIN 20 MG TABLET PO SCH ×2 (00:40→22:02)
[2017-07-21] MEDS: MIDODRINE 5 MG TABLET PO SCH ×4 (00:41→22:02)
[2017-07-21] MEDS: buPROPion 75 MG TABLET PO SCH ×3 (00:41→22:03)
[2017-07-21] MEDS ORDERED: MAGNESIUM OXIDE 400 MG TABLET PO ONE (01:30)
[2017-07-21 01:46] LABS: Basophils % 0.4 % (0.0-0.8); Eosinophils % 0.1 % (0.00-10.9); Hematocrit 44.2 VOL% (42.0-52.0); Hemoglobin 14.4 GM/DL (14.0-18.0); Immature Granulocytes % 1.2 %; Immature Granulocytes Absolute 0.12 #; Lymphocytes # 1.4 10*3/uL (1.4-4.0); Lymphocytes % 13.7 % (21.2-54.2); Mean Corpuscular HGB Conc 32.6 GM/DL (32-36); Mean Corpuscular Hemoglobin 28 PG (27-34); Mean Corpuscular Volume 86.2 FL (87-102); Mean Platelet Volume 11.2 FL (9.6-12.0); Monocytes # 0.4 10*3/uL (0.11-0.8); Monocytes % 3.5 % (1.7-12.7); Neutrophils # 8.1 10*3/uL (1.4-7.4); Neutrophils % 81.1 % (38.7-73.9); Platelet Count 224 T/CUMM (130-400); Red Blood Count 5.13 MC/CUMM (3.8-5.5); Red Cell Distribution Width 14.6 % (9.3-17.3)
[2017-07-21 02:17] LABS: Calcium 9.4 MG/DL (8.5-10.1); Osmolality,Calculated 281.1 MOS/KG (273-304); Potassium 4.5 MMOL/L (3.5-5.1)
[2017-07-21] MEDS: LEVOTHYROXINE 75 MCG TABLET PO SCH ×2 (06:39→09:20)
[2017-07-21] MEDS: FINASTERIDE 5 MG TABLET PO SCH (09:18)
[2017-07-21] MEDS: PANTOPRAZOLE 40 MG TABLET PO SCH (09:18)
[2017-07-21] MEDS: ENOXAPARIN 100 MG/ML SYRINGE SUBCUT SCH ×2 (09:18→22:02)
[2017-07-21] MEDS: amLODIPine 10 MG TABLET PO SCH (09:18)
[2017-07-21] MEDS: INSULIN LISPRO 100 UNIT/ML SUBCUT SCH ×9 (09:19→22:01)
[2017-07-21] MEDS: ASPIRIN EC 81 MG TABLET PO SCH (09:19)
[2017-07-21] MEDS ORDERED: DIAZEPAM 5 MG TABLET PO ONE ×2 (12:15→17:11)
[2017-07-21] MEDS ORDERED: diphenhydrAMINE CAP 25 MG CAPSULE PO ONE (12:15)
[2017-07-21] MEDS ORDERED: POTASSIUM CHLORIDE RIDER 10 MEQ in PREMIX 1 EACH IV PRN ×2 (12:16→17:11)
[2017-07-21] MEDS ORDERED: MAGNESIUM SULF RIDER 2 GM in PREMIX 1 EACH IV PRN ×2 (12:16→17:11)
[2017-07-21] MEDS ORDERED: diphenhydrAMINE 50 MG/1 ML VIAL IV ONE (12:19)
[2017-07-21] MEDS: SODIUM CHLORIDE 0.45% 1,000 ML IV SCH ×2 (13:00→22:08)
[2017-07-21] MEDS: FAMOTIDINE 20 MG/2 ML VIAL IV SCH (14:07)
[2017-07-21] MEDS: methylPREDNISolone SOD SUC 125 MG/2 ML VIAL IV SCH (14:39)
[2017-07-21] MEDS ORDERED: ENOXAPARIN 40 MG/0.4 ML SYRINGE SUBCUT SCH (16:00)
[2017-07-21] MEDS: NITROGLYCERIN SL 0.4 MG TABLET SL PRN ×3 (19:14→23:27)
[2017-07-21] MEDS: SIMETHICONE CHEW 125 MG TABLET PO PRN (22:59)
[2017-07-22] MEDS: FAMOTIDINE 20 MG/2 ML VIAL IV SCH ×2 (00:50→11:34)
[2017-07-22] MEDS: methylPREDNISolone SOD SUC 125 MG/2 ML VIAL IV SCH ×2 (00:51→11:37)
[2017-07-22] MEDS: NITROGLYCERIN SL 0.4 MG TABLET SL PRN (01:20)
[2017-07-22] MEDS ORDERED: NITROGLYCERIN 2% OINT 1 INCH/GM PACK TOP ONE (02:30)
[2017-07-22] MEDS: MORPHINE 2 MG/1 ML SYRINGE IV PRN ×2 (02:43→09:35)
[2017-07-22] MEDS: ONDANSETRON 4 MG/2 ML VIAL IV PRN ×2 (03:31→08:41)
[2017-07-22] MEDS ORDERED: DIAZEPAM 5 MG TABLET ONE (05:11)
[2017-07-22] MEDS ORDERED: diphenhydrAMINE CAP 25 MG CAPSULE ONE (05:12)
[2017-07-22 05:25] LABS: Basophils % 0.2 % (0.0-0.8); Hematocrit 44.3 VOL% (42.0-52.0); Hemoglobin 14.9 GM/DL (14.0-18.0); Immature Granulocytes % 1.4 %; Immature Granulocytes Absolute 0.21 #; Lymphocytes % 6.4 % (21.2-54.2); Mean Corpuscular HGB Conc 33.6 GM/DL (32-36); Mean Corpuscular Hemoglobin 29 PG (27-34); Mean Corpuscular Volume 85.2 FL (87-102); Mean Platelet Volume 11.6 FL (9.6-12.0); Monocytes # 0.3 10*3/uL (0.11-0.8); Monocytes % 1.9 % (1.7-12.7); Neutrophils # 13.5 10*3/uL (1.4-7.4); Neutrophils % 90.1 % (38.7-73.9); Platelet Count 266 T/CUMM (130-400); White Blood Count 14.9 T/CUMM (4-12)
[2017-07-22 05:54] LABS: Calcium 9.3 MG/DL (8.5-10.1); Osmolality,Calculated 284.4 MOS/KG (273-304); Potassium 4.5 MMOL/L (3.5-5.1)
[2017-07-22 05:58] LABS: Risk Ratio 4.79; Troponin I Only 3.36 NG/ML (0.00-0.045); VLDL CHOLESTEROL 40.6 MG/DL
[2017-07-22] MEDS ORDERED: DIAZEPAM 5 MG TABLET PO ONE (06:30)
[2017-07-22] MEDS ORDERED: LIDOCAINE 1% 20 ML VIAL ONE (06:52)
[2017-07-22] MEDS ORDERED: HEPARIN/NACL 0.9% 2 UNITS/ML 2,000 ML IV ONE (06:52)
[2017-07-22] MEDS: ENOXAPARIN 100 MG/ML SYRINGE SUBCUT SCH (06:59)
[2017-07-22] MEDS: ASPIRIN EC 81 MG TABLET PO SCH (06:59)
[2017-07-22] MEDS: amLODIPine 10 MG TABLET PO SCH (06:59)
[2017-07-22] MEDS: LEVOTHYROXINE 75 MCG TABLET PO SCH (06:59)
[2017-07-22] MEDS: PANTOPRAZOLE 40 MG TABLET PO SCH (06:59)
[2017-07-22] MEDS ORDERED: fentaNYL 100 MCG/2 ML VIAL ONE (07:22)
[2017-07-22] MEDS ORDERED: MIDAZOLAM 2 MG/2 ML VIAL ONE (07:22)
[2017-07-22] MEDS ORDERED: ONDANSETRON 4 MG/2 ML VIAL ONE (08:37)
[2017-07-22] MEDS: INSULIN LISPRO 100 UNIT/ML SUBCUT SCH ×7 (08:49→21:20)
[2017-07-22] MEDS: SODIUM CHLORIDE 0.45% 1,000 ML IV SCH ×3 (08:51→19:32)
[2017-07-22] MEDS ORDERED: hydrALAZINE 20 MG/1 ML VIAL ONE (08:54)
[2017-07-22] MEDS ORDERED: hydrALAZINE 20 MG/1 ML VIAL IV ONE (08:59)
[2017-07-22] MEDS: MIDODRINE 5 MG TABLET PO SCH ×3 (09:33→21:21)
[2017-07-22] MEDS: buPROPion 75 MG TABLET PO SCH ×2 (09:33→21:21)
[2017-07-22] MEDS: FINASTERIDE 5 MG TABLET PO SCH (09:33)
[2017-07-22] MEDS: GABAPENTIN 300 MG CAPSULE PO SCH (21:21)
[2017-07-22] MEDS: ATORVASTATIN 20 MG TABLET PO SCH (21:21)
[2017-07-23] MEDS: methylPREDNISolone SOD SUC 125 MG/2 ML VIAL IV SCH ×3 (00:02→23:47)
[2017-07-23] MEDS: ENOXAPARIN 40 MG/0.4 ML SYRINGE SUBCUT SCH (03:00)
[2017-07-23 05:10] LABS: Basophils % 0.1 % (0.0-0.8); Hematocrit 41.6 VOL% (42.0-52.0); Hemoglobin 13.7 GM/DL (14.0-18.0); Immature Granulocytes % 1.2 %; Immature Granulocytes Absolute 0.19 #; Lymphocytes # 0.8 10*3/uL (1.4-4.0); Lymphocytes % 4.9 % (21.2-54.2); Mean Corpuscular HGB Conc 32.9 GM/DL (32-36); Mean Corpuscular Hemoglobin 29 PG (27-34); Mean Corpuscular Volume 86.7 FL (87-102); Monocytes # 0.6 10*3/uL (0.11-0.8); Neutrophils # 14.3 10*3/uL (1.4-7.4); Neutrophils % 89.8 % (38.7-73.9); Platelet Count 235 T/CUMM (130-400); Red Cell Distribution Width 14.9 % (9.3-17.3)
[2017-07-23] MEDS: SODIUM CHLORIDE 0.45% 1,000 ML IV SCH (05:31)
[2017-07-23 05:35] LABS: Band Neutrophils 14 % (0-10); Lymphocytes 9 % (20-55); Platelet Estimate Normal; Segmented Neutrophils 72 % (50-85); Total Cells Counted 100
[2017-07-23 05:42] LABS: Potassium 4.5 MMOL/L (3.5-5.1)
[2017-07-23] MEDS: LEVOTHYROXINE 75 MCG TABLET PO SCH (06:00)
[2017-07-23] MEDS: INSULIN LISPRO 100 UNIT/ML SUBCUT SCH ×7 (08:48→20:03)
[2017-07-23] MEDS: amLODIPine 10 MG TABLET PO SCH (08:48)
[2017-07-23] MEDS: ANASTROZOLE 1 MG TABLET PO SCH (08:49)
[2017-07-23] MEDS: ASPIRIN EC 81 MG TABLET PO SCH (08:49)
[2017-07-23] MEDS: MIDODRINE 5 MG TABLET PO SCH ×3 (08:49→20:03)
[2017-07-23] MEDS: FINASTERIDE 5 MG TABLET PO SCH (08:49)
[2017-07-23] MEDS: buPROPion 75 MG TABLET PO SCH ×2 (08:49→20:03)
[2017-07-23] MEDS: CARVEDILOL 3.125 MG TABLET PO SCH ×2 (09:25→20:03)
[2017-07-23] MEDS: PANTOPRAZOLE 40 MG TABLET PO SCH (09:25)
[2017-07-23] MEDS: RANOLAZINE 500 MG TABLET PO SCH ×2 (09:26→20:02)
[2017-07-23] MEDS: ISOSORBIDE MONONITRATE 30 MG TABLET PO SCH (09:27)
[2017-07-23 10:29] LABS: Apearance,Urine CLEAR (Clear); Bacteria,Urine Occasional /HPF (Few); Bilirubin,Urine Negative (Negative); Blood, Urine Small mg/dL (Negative); Glucose,Urine (UA) 50 mg/dL (Negative); Ketones,Urine Negative (Negative); Nitrite,Urine Negative (Negative); Protein,Urine Negative; RBC,Urine 3 /HPF (0-4); Urine Color Yellow (Yellow); Urine Specific Gravity 1.016 (1.001-1.035); Urine Urobilinogen < 2.0 EU/DL (0.2-1.0); WBC,Urine 10 /HPF (0-6)
[2017-07-23] MEDS: CLOPIDOGREL 75 MG TABLET PO SCH (10:48)
[2017-07-23] MEDS: FAMOTIDINE 20 MG/2 ML VIAL IV SCH ×3 (12:42→23:47)
[2017-07-23] MEDS: SIMETHICONE CHEW 125 MG TABLET PO PRN (15:08)
[2017-07-23] MEDS: GABAPENTIN 300 MG CAPSULE PO SCH (20:02)
[2017-07-23] MEDS: ATORVASTATIN 20 MG TABLET PO SCH (20:03)
[2017-07-24] MEDS: ENOXAPARIN 40 MG/0.4 ML SYRINGE SUBCUT SCH (01:31)
[2017-07-24] MEDS ORDERED: TEMAZEPAM 15 MG CAPSULE PO ONE (02:00)
[2017-07-24 05:14] LABS: Basophils % 0.1 % (0.0-0.8); Hematocrit 37.7 VOL% (42.0-52.0); Hemoglobin 12.7 GM/DL (14.0-18.0); Immature Granulocytes % 1.2 %; Immature Granulocytes Absolute 0.12 #; Lymphocytes # 0.7 10*3/uL (1.4-4.0); Lymphocytes % 6.7 % (21.2-54.2); Mean Corpuscular HGB Conc 33.7 GM/DL (32-36); Mean Corpuscular Hemoglobin 29 PG (27-34); Mean Corpuscular Volume 84.7 FL (87-102); Mean Platelet Volume 11.9 FL (9.6-12.0); Monocytes # 0.4 10*3/uL (0.11-0.8); Monocytes % 3.7 % (1.7-12.7); Neutrophils # 8.7 10*3/uL (1.4-7.4); Neutrophils % 88.3 % (38.7-73.9); Platelet Count 210 T/CUMM (130-400); Red Blood Count 4.45 MC/CUMM (3.8-5.5); Red Cell Distribution Width 14.9 % (9.3-17.3); White Blood Count 9.9 T/CUMM (4-12)
[2017-07-24 05:27] LABS: Calcium 8.2 MG/DL (8.5-10.1); Osmolality,Calculated 289.1 MOS/KG (273-304); Potassium 4.5 MMOL/L (3.5-5.1)
[2017-07-24] MEDS: LEVOTHYROXINE 75 MCG TABLET PO SCH (06:15)
[2017-07-24] MEDS: INSULIN LISPRO 100 UNIT/ML SUBCUT SCH ×7 (08:44→20:46)
[2017-07-24] MEDS: CARVEDILOL 3.125 MG TABLET PO SCH ×2 (08:45→20:45)
[2017-07-24] MEDS: RANOLAZINE 500 MG TABLET PO SCH ×2 (08:45→20:46)
[2017-07-24] MEDS: buPROPion 75 MG TABLET PO SCH ×2 (08:45→20:46)
[2017-07-24] MEDS: CLOPIDOGREL 75 MG TABLET PO SCH (08:45)
[2017-07-24] MEDS: ISOSORBIDE MONONITRATE 30 MG TABLET PO SCH (08:45)
[2017-07-24] MEDS: amLODIPine 10 MG TABLET PO SCH (08:45)
[2017-07-24] MEDS: PANTOPRAZOLE 40 MG TABLET PO SCH (08:45)
[2017-07-24] MEDS: FINASTERIDE 5 MG TABLET PO SCH (08:45)
[2017-07-24] MEDS: ASPIRIN EC 81 MG TABLET PO SCH (08:45)
[2017-07-24] MEDS: LOSARTAN 25 MG TABLET PO SCH (08:46)
[2017-07-24] MEDS: MIDODRINE 5 MG TABLET PO SCH ×3 (08:46→20:45)
[2017-07-24] MEDS: methylPREDNISolone SOD SUC 40 MG/1 ML VIAL IV SCH ×2 (10:40→20:50)
[2017-07-24] MEDS: FAMOTIDINE 20 MG/2 ML VIAL IV SCH (11:30)
[2017-07-24] MEDS: MUPIROCIN 2% OINT 22 GM TUBE TOP SCH ×2 (16:54→20:47)
[2017-07-24] MEDS: GABAPENTIN 300 MG CAPSULE PO SCH (20:46)
[2017-07-24] MEDS: ATORVASTATIN 20 MG TABLET PO SCH (20:46)
[2017-07-24] MEDS: TEMAZEPAM 15 MG CAPSULE PO PRN (20:46)
[2017-07-25] MEDS: ENOXAPARIN 40 MG/0.4 ML SYRINGE SUBCUT SCH (01:30)
[2017-07-25] MEDS: FAMOTIDINE 20 MG/2 ML VIAL IV SCH (01:30)
[2017-07-25 05:36] LABS: Basophils % 0.2 % (0.0-0.8); Hematocrit 40.8 VOL% (42.0-52.0); Hemoglobin 13.7 GM/DL (14.0-18.0); Immature Granulocytes % 1.4 %; Immature Granulocytes Absolute 0.17 #; Lymphocytes # 0.7 10*3/uL (1.4-4.0); Lymphocytes % 6.1 % (21.2-54.2); Mean Corpuscular HGB Conc 33.6 GM/DL (32-36); Mean Corpuscular Hemoglobin 28 PG (27-34); Mean Corpuscular Volume 84.6 FL (87-102); Mean Platelet Volume 12.2 FL (9.6-12.0); Monocytes # 0.6 10*3/uL (0.11-0.8); Monocytes % 5.3 % (1.7-12.7); Neutrophils # 10.5 10*3/uL (1.4-7.4); Platelet Count 217 T/CUMM (130-400); Red Blood Count 4.82 MC/CUMM (3.8-5.5); Red Cell Distribution Width 14.7 % (9.3-17.3); White Blood Count 12.1 T/CUMM (4-12)
[2017-07-25 06:04] LABS: Calcium 8.7 MG/DL (8.5-10.1); Potassium 4.6 MMOL/L (3.5-5.1)
[2017-07-25] MEDS: LEVOTHYROXINE 75 MCG TABLET PO SCH (06:25)
[2017-07-25] MEDS: methylPREDNISolone SOD SUC 40 MG/1 ML VIAL IV SCH (08:20)
[2017-07-25] MEDS: INSULIN LISPRO 100 UNIT/ML SUBCUT SCH ×7 (08:20→20:59)
[2017-07-25] MEDS: MIDODRINE 5 MG TABLET PO SCH ×3 (08:22→21:02)
[2017-07-25] MEDS: LOSARTAN 25 MG TABLET PO SCH (08:22)
[2017-07-25] MEDS: CLOPIDOGREL 75 MG TABLET PO SCH (08:22)
[2017-07-25] MEDS: ISOSORBIDE MONONITRATE 30 MG TABLET PO SCH (08:22)
[2017-07-25] MEDS: RANOLAZINE 500 MG TABLET PO SCH ×2 (08:22→20:59)
[2017-07-25] MEDS: buPROPion 75 MG TABLET PO SCH ×2 (08:22→21:00)
[2017-07-25] MEDS: ASPIRIN EC 81 MG TABLET PO SCH (08:22)
[2017-07-25] MEDS: CARVEDILOL 3.125 MG TABLET PO SCH ×2 (08:23→21:00)
[2017-07-25] MEDS: PANTOPRAZOLE 40 MG TABLET PO SCH (08:23)
[2017-07-25] MEDS: MUPIROCIN 2% OINT 22 GM TUBE TOP SCH ×3 (08:23→21:00)
[2017-07-25] MEDS: FINASTERIDE 5 MG TABLET PO SCH (08:23)
[2017-07-25] MEDS: amLODIPine 10 MG TABLET PO SCH (08:23)
[2017-07-25] MEDS ORDERED: methylPREDNISolone SOD SUC 40 MG/1 ML VIAL IV SCH (09:00)
[2017-07-25] MEDS: cefTRIAXone 1,000 MG in SYRINGE 1 EACH IV SCH (09:54)
[2017-07-25] MEDS: ATORVASTATIN 20 MG TABLET PO SCH (21:00)
[2017-07-25] MEDS: TEMAZEPAM 15 MG CAPSULE PO PRN (21:00)
[2017-07-25] MEDS: GABAPENTIN 300 MG CAPSULE PO SCH (21:00)
[2017-07-26] MEDS: ENOXAPARIN 40 MG/0.4 ML SYRINGE SUBCUT SCH (01:46)
[2017-07-26 05:29] LABS: Basophils # 0.1 10*3/uL (0.0-0.2); Basophils % 0.4 % (0.0-0.8); Hematocrit 41.2 VOL% (42.0-52.0); Immature Granulocytes % 1.8 %; Immature Granulocytes Absolute 0.25 #; Lymphocytes # 1.1 10*3/uL (1.4-4.0); Lymphocytes % 7.6 % (21.2-54.2); Mean Corpuscular Hemoglobin 29 PG (27-34); Mean Corpuscular Volume 84.1 FL (87-102); Mean Platelet Volume 12.4 FL (9.6-12.0); Monocytes # 1.2 10*3/uL (0.11-0.8); Monocytes % 8.4 % (1.7-12.7); Neutrophils # 11.7 10*3/uL (1.4-7.4); Neutrophils % 81.8 % (38.7-73.9); Platelet Count 224 T/CUMM (130-400); Red Cell Distribution Width 14.6 % (9.3-17.3); White Blood Count 14.2 T/CUMM (4-12)
[2017-07-26 05:38] LABS: Calcium 8.7 MG/DL (8.5-10.1); Potassium 4.6 MMOL/L (3.5-5.1)
[2017-07-26] MEDS: LEVOTHYROXINE 75 MCG TABLET PO SCH (06:05)
[2017-07-26] MEDS: ANASTROZOLE 1 MG TABLET PO SCH (09:26)
[2017-07-26] MEDS: PANTOPRAZOLE 40 MG TABLET PO SCH (09:27)
[2017-07-26] MEDS: LOSARTAN 25 MG TABLET PO SCH (09:27)
[2017-07-26] MEDS: RANOLAZINE 500 MG TABLET PO SCH ×2 (09:27→21:42)
[2017-07-26] MEDS: ASPIRIN EC 81 MG TABLET PO SCH (09:28)
[2017-07-26] MEDS: FINASTERIDE 5 MG TABLET PO SCH (09:28)
[2017-07-26] MEDS: MUPIROCIN 2% OINT 22 GM TUBE TOP SCH ×3 (09:29→21:37)
[2017-07-26] MEDS: MIDODRINE 5 MG TABLET PO SCH ×3 (09:29→21:43)
[2017-07-26] MEDS: amLODIPine 10 MG TABLET PO SCH (09:29)
[2017-07-26] MEDS: ISOSORBIDE MONONITRATE 30 MG TABLET PO SCH (09:29)
[2017-07-26] MEDS: buPROPion 75 MG TABLET PO SCH ×2 (09:30→21:44)
[2017-07-26] MEDS: CLOPIDOGREL 75 MG TABLET PO SCH (09:30)
[2017-07-26] MEDS: CARVEDILOL 3.125 MG TABLET PO SCH ×2 (09:31→21:43)
[2017-07-26] MEDS: INSULIN LISPRO 100 UNIT/ML SUBCUT SCH ×7 (09:51→21:42)
[2017-07-26] MEDS: cefTRIAXone 1,000 MG in SYRINGE 1 EACH IV SCH (09:51)
[2017-07-26] MEDS: TEMAZEPAM 15 MG CAPSULE PO PRN (21:43)
[2017-07-26] MEDS: GABAPENTIN 300 MG CAPSULE PO SCH (21:43)
[2017-07-26] MEDS: CIPROFLOXACIN 500 MG TABLET PO SCH (21:44)
[2017-07-26] MEDS: ATORVASTATIN 20 MG TABLET PO SCH (21:44)
[2017-07-27 05:12] LABS: Basophils # 0.1 10*3/uL (0.0-0.2); Basophils % 0.5 % (0.0-0.8); Eosinophils # 0.3 10*3/uL (0.0-0.87); Eosinophils % 2.4 % (0.00-10.9); Hematocrit 41.1 VOL% (42.0-52.0); Hemoglobin 13.8 GM/DL (14.0-18.0); Immature Granulocytes % 2.6 %; Immature Granulocytes Absolute 0.35 #; Lymphocytes # 2.6 10*3/uL (1.4-4.0); Lymphocytes % 19.7 % (21.2-54.2); Mean Corpuscular HGB Conc 33.6 GM/DL (32-36); Mean Corpuscular Hemoglobin 29 PG (27-34); Mean Corpuscular Volume 85.1 FL (87-102); Mean Platelet Volume 11.8 FL (9.6-12.0); Monocytes # 1.6 10*3/uL (0.11-0.8); Monocytes % 12.2 % (1.7-12.7); Neutrophils # 8.3 10*3/uL (1.4-7.4); Neutrophils % 62.6 % (38.7-73.9); Platelet Count 224 T/CUMM (130-400); Red Blood Count 4.83 MC/CUMM (3.8-5.5); Red Cell Distribution Width 14.7 % (9.3-17.3); White Blood Count 13.3 T/CUMM (4-12)
[2017-07-27 05:40] LABS: Calcium 8.2 MG/DL (8.5-10.1); Osmolality,Calculated 281.8 MOS/KG (273-304); Potassium 4.7 MMOL/L (3.5-5.1)
[2017-07-27 05:44] LABS: Albumin 2.4 G/DL (3.4-5.0); Bilirubin,Total 0.6 MG/DL (0.2-1.0); Calcium 8.2 MG/DL (8.5-10.1); Osmolality,Calculated 283.8 MOS/KG (273-304); Potassium 4.7 MMOL/L (3.5-5.1); Total Protein 5.3 G/DL (6.4-8.3)
[2017-07-27] MEDS: ENOXAPARIN 40 MG/0.4 ML SYRINGE SUBCUT SCH (07:06)
[2017-07-27] MEDS: LEVOTHYROXINE 75 MCG TABLET PO SCH (07:06)
[2017-07-27] MEDS: CLOPIDOGREL 75 MG TABLET PO SCH (10:47)
[2017-07-27] MEDS: CIPROFLOXACIN 500 MG TABLET PO SCH (10:48)
[2017-07-27] MEDS: buPROPion 75 MG TABLET PO SCH (10:49)
[2017-07-27] MEDS: ASPIRIN EC 81 MG TABLET PO SCH (10:49)
[2017-07-27] MEDS: RANOLAZINE 500 MG TABLET PO SCH (10:49)
[2017-07-27] MEDS: ISOSORBIDE MONONITRATE 30 MG TABLET PO SCH (10:50)
[2017-07-27] MEDS: amLODIPine 10 MG TABLET PO SCH (10:50)
[2017-07-27] MEDS: LOSARTAN 25 MG TABLET PO SCH (10:51)
[2017-07-27] MEDS: FINASTERIDE 5 MG TABLET PO SCH (10:51)
[2017-07-27] MEDS: PANTOPRAZOLE 40 MG TABLET PO SCH (10:51)
[2017-07-27] MEDS: CARVEDILOL 3.125 MG TABLET PO SCH (10:51)
[2017-07-27] MEDS: MIDODRINE 5 MG TABLET PO SCH ×2 (10:52→16:20)
[2017-07-27] MEDS: INSULIN LISPRO 100 UNIT/ML SUBCUT SCH ×4 (10:55→14:58)
[2017-07-27] MEDS: MUPIROCIN 2% OINT 22 GM TUBE TOP SCH ×2 (10:56→16:20)
[2017-07-27 11:54] VITALS: BP 125/56
== END 2017-07-27 16:17 | disposition swing bed (61) | DRG 281 ==
LOC: N.ED 17:30 → N.EDINP 17:30 → N.TELES 21:58 → SUATTDRO 07-21 10:35 → N.CC 07-22 09:05 → N.TELEN 07-25 17:23
PROVIDERS: ADMIT Internal Medicine; ATTEND Family Medicine
PROC: CLCCHCL (ICD-10-PCS; 2017-07-22 07:45)

== ENCOUNTER 2017-08-17 20:28 | Inpatient (IN) ==
[2017-08-17 21:55] LABS: CKMB % 5.1 %; Troponin I Only 0.73 NG/ML (0.00-0.045)
[2017-08-18] MEDS ORDERED: ACETAMINOPHEN 325 MG TABLET PO PRN (02:24)
[2017-08-18] MEDS ORDERED: ONDANSETRON 4 MG/2 ML VIAL IV PRN (02:24)
[2017-08-18] MEDS ORDERED: GLUCAGON 1 MG VIAL IM PRN (02:56)
[2017-08-18] MEDS ORDERED: DEXTROSE 50% 25 GM/50 ML VIAL IV PRN (02:56)
[2017-08-18] MEDS: RANOLAZINE 500 MG TABLET PO SCH ×3 (04:37→21:52)
[2017-08-18] MEDS: CARVEDILOL 3.125 MG TABLET PO SCH ×2 (04:37→08:41)
[2017-08-18 07:46] LABS: Basophils # 0.1 10*3/uL (0.0-0.2); Eosinophils # 0.5 10*3/uL (0.0-0.87); Eosinophils % 4.2 % (0.00-10.9); Hematocrit 36.2 VOL% (42.0-52.0); Hemoglobin 11.8 GM/DL (14.0-18.0); Immature Granulocytes % 1.8 %; Lymphocytes # 2.2 10*3/uL (1.4-4.0); Lymphocytes % 20.5 % (21.2-54.2); Mean Corpuscular HGB Conc 32.6 GM/DL (32-36); Mean Corpuscular Hemoglobin 29 PG (27-34); Mean Corpuscular Volume 89.4 FL (87-102); Mean Platelet Volume 11.1 FL (9.6-12.0); Monocytes # 1.4 10*3/uL (0.11-0.8); Monocytes % 12.8 % (1.7-12.7); Neutrophils # 6.5 10*3/uL (1.4-7.4); Neutrophils % 59.7 % (38.7-73.9); Platelet Count 248 T/CUMM (130-400); Red Blood Count 4.05 MC/CUMM (3.8-5.5); Red Cell Distribution Width 17.1 % (9.3-17.3); White Blood Count 10.8 T/CUMM (4-12)
[2017-08-18 08:18] LABS: Bilirubin,Total 0.5 MG/DL (0.2-1.0); Calcium 8.7 MG/DL (8.5-10.1); Osmolality,Calculated 283.5 MOS/KG (273-304); Potassium 4.8 MMOL/L (3.5-5.1); Total Protein 5.8 G/DL (6.4-8.3)
[2017-08-18] MEDS ORDERED: NITROGLYCERIN SL 0.4 MG TABLET SL PRN (08:25)
[2017-08-18] MEDS: INSULIN REGULAR 100 UNIT/ML SUBCUT SCH ×4 (08:38→22:09)
[2017-08-18] MEDS: PANTOPRAZOLE 40 MG TABLET PO SCH (08:41)
[2017-08-18] MEDS: CLOPIDOGREL 75 MG TABLET PO SCH (08:41)
[2017-08-18] MEDS: ASPIRIN EC 81 MG TABLET PO SCH (08:41)
[2017-08-18] MEDS: ISOSORBIDE MONONITRATE 30 MG TABLET PO SCH (08:41)
[2017-08-18] MEDS: ENOXAPARIN 100 MG/ML SYRINGE SUBCUT SCH ×2 (08:45→21:52)
[2017-08-18] MEDS ORDERED: ENOXAPARIN 40 MG/0.4 ML SYRINGE SUBCUT SCH (09:00)
[2017-08-18] MEDS ORDERED: LOSARTAN 25 MG TABLET PO SCH (09:00)
[2017-08-18] MEDS: SODIUM CHLORIDE 0.45% 1,000 ML IV SCH (10:54)
[2017-08-18] MEDS ORDERED: MORPHINE 2 MG/1 ML SYRINGE IM PRN (13:19)
[2017-08-18] MEDS: ALBUTEROL 1.25 MG/3 ML NEB RESP TX SCH ×2 (14:35→19:20)
[2017-08-18] MEDS: CARVEDILOL 6.25 MG TABLET PO SCH ×2 (16:58→16:59)
[2017-08-18] MEDS ORDERED: ATORVASTATIN 20 MG TABLET PO SCH (21:00)
[2017-08-18] MEDS: ATORVASTATIN 80 MG TABLET PO SCH (21:52)
[2017-08-19] MEDS: ALBUTEROL 1.25 MG/3 ML NEB RESP TX SCH ×4 (00:10→19:23)
[2017-08-19] MEDS: SODIUM CHLORIDE 0.45% 1,000 ML IV SCH (03:19)
[2017-08-19] MEDS ORDERED: ZIPRASIDONE 20 MG/1 ML VIAL IM ONE (04:30)
[2017-08-19 04:51] LABS: Basophils # 0.1 10*3/uL (0.0-0.2); Basophils % 1.1 % (0.0-0.8); Eosinophils # 0.3 10*3/uL (0.0-0.87); Eosinophils % 2.4 % (0.00-10.9); Hematocrit 34.8 VOL% (42.0-52.0); Immature Granulocytes % 1.8 %; Immature Granulocytes Absolute 0.21 #; Lymphocytes # 2.3 10*3/uL (1.4-4.0); Lymphocytes % 19.6 % (21.2-54.2); Mean Corpuscular HGB Conc 31.6 GM/DL (32-36); Mean Corpuscular Hemoglobin 29 PG (27-34); Mean Corpuscular Volume 91.6 FL (87-102); Mean Platelet Volume 11.5 FL (9.6-12.0); Monocytes # 1.5 10*3/uL (0.11-0.8); Monocytes % 12.4 % (1.7-12.7); NRBC # 0.02 10*3/uL; Neutrophils # 7.5 10*3/uL (1.4-7.4); Neutrophils % 62.7 % (38.7-73.9); Platelet Count 247 T/CUMM (130-400); Red Cell Distribution Width 17.2 % (9.3-17.3); White Blood Count 11.9 T/CUMM (4-12)
[2017-08-19 05:54] LABS: Calcium 8.5 MG/DL (8.5-10.1); Osmolality,Calculated 282.8 MOS/KG (273-304); Potassium 4.9 MMOL/L (3.5-5.1)
[2017-08-19] MEDS: INSULIN REGULAR 100 UNIT/ML SUBCUT SCH ×4 (10:01→20:47)
[2017-08-19] MEDS: ENOXAPARIN 100 MG/ML SYRINGE SUBCUT SCH ×2 (10:04→21:02)
[2017-08-19] MEDS: CLOPIDOGREL 75 MG TABLET PO SCH (10:04)
[2017-08-19] MEDS: ASPIRIN EC 81 MG TABLET PO SCH (10:04)
[2017-08-19] MEDS: PANTOPRAZOLE 40 MG TABLET PO SCH (10:18)
[2017-08-19] MEDS: RANOLAZINE 500 MG TABLET PO SCH ×2 (10:39→20:48)
[2017-08-19] MEDS: CARVEDILOL 6.25 MG TABLET PO SCH ×2 (10:39→16:51)
[2017-08-19] MEDS: ISOSORBIDE MONONITRATE 30 MG TABLET PO SCH (10:39)
[2017-08-19] MEDS ORDERED: HYDROcod/ACETAMIN 7.5-325 MG/15 ML UDCUP PO PRN (11:48)
[2017-08-19] MEDS ORDERED: LORazepam 1 MG TABLET PO PRN (12:21)
[2017-08-19] MEDS: LORazepam 2 MG/1 ML VIAL IV PRN (12:38)
[2017-08-19] MEDS: PIPERACILLIN/TAZOBACTAM 3,375 MG in SODIUM CHLORIDE 0.9% 100 ML IV SCH ×2 (15:04→21:02)
[2017-08-19 20:36] VITALS: BP 101/65
[2017-08-19] MEDS: ATORVASTATIN 80 MG TABLET PO SCH (20:48)
[2017-08-20] MEDS: ALBUTEROL 1.25 MG/3 ML NEB RESP TX SCH (00:22)
[2017-08-20] MEDS: LORazepam 2 MG/1 ML VIAL IV PRN ×2 (03:18→03:48)
[2017-08-20] MEDS: PIPERACILLIN/TAZOBACTAM 3,375 MG in SODIUM CHLORIDE 0.9% 100 ML IV SCH (05:29)
== END 2017-08-20 04:22 | disposition expired ==
LOC: EDBD → EDUNIT# → N.ED 20:28 → N.EDINP 08-18 02:25 → N.TELES 08-18 03:12
PROVIDERS: ADMIT Hospitalist; ATTEND Hospitalist